=== PATIENT | male | born 1975 | race Caucasian/White ===

== ENCOUNTER → 2018-05-24 10:19 | Outpatient (CLI) | payer BC, SELFPAY ==
[2018-05-24 11:17] LABS: Glucose,Fasting 101 mg/dL (60-105)
[2018-05-24 11:36] LABS: Hemoglobin A1C 5.6 % (0.0-7.0)
== END ==
PROVIDERS: Visit Provider Physician Assistant
DX: R73.09 Other abnormal glucose (principal)
CPT/HCPCS: 36415; 82947; 83036

== ENCOUNTER 2023-12-25 12:33 | Emergency (ER) | payer BC, SELFPAY ==
--- NOTE | 2023-12-25 12:49 | ED_ITS ---
Discharge Plan Disposition Patient Disposition: Home, Self-Care Condition: Good Prescriptions Prescriptions: New cyclobenzaprine 10 mg Tablet 10 mg PO BID PRN (Reason: Muscle Spasm) Qty: 20 0RF methylprednisolone 4 mg Tablets,Dose Pack 4 mg PO DIRECTED 6 Days Qty: 21 0RF Rx Instructions: Take 1 pack as directed for 6 days No Action loratadine [Claritin] 10 mg Tablet 10 mg PO DAILY Referrals Follow up/Referrals: Blayne Brito MD [Primary Care Provider] - See instructions Activity Restrictions/Add. Instructions Additional Instructions/Restrictions: Go home and rest. It would be best if you rested tomorrow too. No heavy lifting. No twisting. Take the oral medications as directed. The muscle relaxer (cyclobenzaprine--Flexeril) will make you drowsy, so don't drive or operate heavy machinery after taking it. Don't start the oral steroids (medrol dose pack) until tomorrow, since you had the shots in here today. Follow up with your regular doctor. GO TO THE ER FOR ANY WORSENING SYMPTOMS OR CONCERN, ESPECIALLY BOWEL OR BLADDER ISSUES, SADDLE AREA NUMBNESS, FEVER, ETC Clinical Impressions Clinical Impression: Low back pain Instructions Patient Instructions: DI for Low Back Pain, Dexamethasone Injection, Ketorolac Injection, Cyclobenzaprine Discharge ED Provider: Micky Temple [facility] General Stated complaint: back pain Time Seen by Provider: 12/25/23 12:49 History of Present Illness Provider Complaint: He states that he bent over 2 days ago to work on the toilet at home. When he stood back up he began having low back pain. He denies that the pain radiates anywhere. He denies any bowel or bladder issues. Related Data Home Medications Medication Instructions Recorded Confirmed loratadine 10 mg tablet (Claritin) 10 mg PO DAILY 12/25/23 12/25/23 Previous Rx's Medication Instructions Recorded cyclobenzaprine 10 mg tablet 10 mg PO BID PRN Muscle Spasm #20 12/25/23 tabs methylprednisolone 4 mg tablets in 4 mg PO DIRECTED 6 days #21 tabs 12/25/23 a dose pack Allergies Allergy/AdvReac Type Severity Reaction Status Date / Time No Known Allergies Allergy Verified 12/25/23 13:33 [facility] Disclaimer: The information contained in this section may have been updated after the pat ient was seen, as this information can be updated by other users. Surgical History (Updated 12/25/23 @ 13:34 by Nica Rosa RN) History of tonsillectomy Social History Smoking Status: Never smoker alcohol intake: never current occupational status: employed Travel in the last 8 weeks: None ROS Obtained: Yes All systems reviewed & no additional complaints except as documented Constitutional Constitutional: Denies chills, Denies fever(s) and Denies weakness Eyes Eyes: Denies eye discharge ENT Ears, Nose, Mouth, and Throat: Denies dizziness, Denies otalgia, Denies neck pain and Denies sore throat Cardiovascular Cardiovascular: Denies chest pain Respiratory Respiratory: Denies shortness of breath, Denies chest congestion, Denies cough, Denies stridor and Denies wheezing Gastrointestinal Gastrointestingal: Denies abdominal pain, constipation, cramping, diarrhea, nausea or vomiting Genitourinary Male Genitourinary: Denies difficulty urinating, Denies flank pain, Denies hematuria, Denies urinary frequency, Denies urinary hesitancy and Denies urinary incontinence Musculoskeletal Musculoskeletal: Reports as per HPI, Denies abnormal gait, Reports back pain, Denies neck pain and Denies tingling Integumentary/Breasts Skin/Breast: Denies rash Neurologic Neurologic: Denies abnormal gait, Denies dizziness, Denies paresthesias, Denies tingling and Denies weakness Allergic/Immunologic Allergic/Immunologic: Denies wheezing Physical Exam General General appearance: alert and in no apparent distress Head Head exam: atraumatic, normocephalic and normal inspection Eye Eye exam: Present normal appearance, PERRL and EOMI ENT ENT exam: Present normal exam, normal oropharynx, mucous membranes moist, TM's normal bilaterally and normal external ear exam Neck Neck exam: Present normal inspection, full ROM and trachea midline; Absent meningismus or lymphadenopathy Chest Chest inspection: Present normal inspection and symmetric chest wall rise; Absent tenderness Respiratory Respiratory exam: Present normal lung sounds bilaterally; Absent respiratory distress Cardiovascular Cardiovascular exam: Present regular rate and normal rhythm; Absent JVD Abdominal Exam Abdominal exam: Present soft and normal bowel sounds; Absent distention, tenderness or guarding Extremities Exam Extremities exam: Present normal inspection, full ROM and normal capillary refill; Absent calf tenderness Back Exam Back exam: Present normal inspection; Absent tenderness, CVA tenderness (R), CVA tenderness (L), muscle spasm, paraspinal tenderness, vertebral tenderness, rashes, sciatic notch tenderness (R), sciatic notch tenderness (L), straight leg raise (R) or straight leg raise (L) Neurological Exam Neurological exam: Present alert, oriented X3, CN II-XII intact, normal gait and reflexes normal; Absent motor sensory deficit Expanded Neurological Exam Speech: Present fluid speech Cranial nerves: Normal: EOM function (II, III, IV, ), facial sensation (V), facial palsy (VII), gag reflex (IX), spinal accessory function (XI) and tongue deviation (XII) Cerebellar function: normal gait Motor strength - LUE: 5/5 Motor strength - RUE: 5/5 Motor strength - LLE: 5/5 Motor strength - RLE: 5/5 Upper motor neuron exam: Normal: harriet neglect and sensory extinction Sensory exam upper extremity: Normal: light touch and 2 point discrimination Sensory exam lower extremity: Normal: light touch and 2 point discrimination DTR: 2+: biceps (L), biceps (R), patellar (L), patellar (R), Achilles tendon (L) and Achilles tendon (R) Spinal cord function: Present saddle anesthesia Psychiatric Psychiatric exam: Present normal affect and normal mood Skin Skin exam: Present warm, dry, intact and normal color Lymphatic Lymphatic Findings: no adenopathy Medical Decision Making Medical Records Medical records reviewed: No I reviewed the patient's medical records. Gabe Inquiry Pt receiving controlled substance: No
[2023-12-25 13:15] VITALS: BP 175/103; PULSE 85; RESP 21; TEMP 36.8; O2SAT 97; BMI 26.1
[2023-12-25] MEDS: KETOROLAC 60MG/2ML VIAL 60 MG IM (13:52)
[2023-12-25] MEDS: DEXAMETHASONE 4MG/ML 1ML VIAL 8 MG IM (13:52)
[2023-12-25 13:53] VITALS: BP 175/103; PULSE 85; RESP 21; TEMP 36.8; O2SAT 97
== END 2023-12-25 14:07 | disposition home or self-care (01) ==
PROVIDERS: Emergency Provider Nurse Practitioner Family; PCP Family Medicine
DX: M54.50 Low back pain, unspecified (principal)
CPT/HCPCS: 96372; 99204; 99212; G0463

== ENCOUNTER 2025-02-18 03:20 | Emergency (ER) | payer BC, SELFPAY ==
--- NOTE | 2025-02-18 03:22 | HMH.EDGENADL ---
Discharge Plan Disposition Patient Disposition: Home, Self-Care Condition: Good Prescriptions Prescriptions: New tamsulosin 0.4 mg capsule 0.4 mg PO HS Qty: 14 0RF ondansetron 4 mg tablet,disintegrating 4 mg PO Q6H PRN (Reason: nausea and vomiting) Qty: 10 0RF oxycodone 5 mg tablet 5 mg PO Q6H PRN (Reason: pain (scale score 7-10)) Qty: 7 0RF No Action loratadine [Claritin] 10 mg Tablet 10 mg PO DAILY cyclobenzaprine 10 mg Tablet 10 mg PO BID PRN (Reason: Muscle Spasm) Qty: 20 0RF methylprednisolone 4 mg Tablets,Dose Pack 4 mg PO DIRECTED 6 Days Qty: 21 0RF Rx Instructions: Take 1 pack as directed for 6 days Referrals Follow up/Referrals: Nasim Mendosa MD [Referring] - See instructions (3mm right ureteral lithiasis, single kidney) Provider,Referral, [Primary Care Provider] - See instructions Activity Restrictions/Add. Instructions Additional Instructions/Restrictions: You were evaluated in the ER and are appropriate for discharge at this time. Take Tylenol and ibuprofen if needed for pain, do not exceed the recommended dose on the bottle. Drink water and eat a small snack each time you take these medications to avoid side effects. If these medications do not control your pain, then take the oxycodone if needed for severe, breakthrough pain. Only take this medication if necessary as it has potential for addiction as well as side effects including sleepiness, clouding your judgment, constipation, and more. Do not drive or operate machinery after taking this medication. Take the prescribed ondansetron if needed for nausea. Take the prescribed tamsulosin nightly as directed. Drink plenty of water. Monitor your urination closely, if you have a decrease in urination or are unable to pass urine, immediately return to the ER. Please strain your urine with the provided strainer. Call Dr. Mendosa's office for outpatient follow-up. Return to the ER with any new, worsening, or otherwise concerning symptoms. 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 Patient reports approximately 2-1/2 hours prior to arrival he was woken up by sudden onset right kidney pain. He states the pain has been as high as a 10 out of 10, currently a 7-8 out of 10. He states the pain has moved down some and he is now feeling bladder discomfort/spasm. He describes it as a cramp feeling like he needs to urinate. He denies any painful urination or blood in the urine. He states when the pain is really bad he has nausea but has not had emesis. He states he also got sweaty with the pain at 1 point but it is slightly improved. Patient reports no history of kidney stones. No other complaints or concerns. Related Data Home Medications ?Medication ?Instructions ?Recorded ?Confirmed loratadine 10 mg tablet (Claritin) 10 mg PO DAILY 12/25/23 12/25/23 Previous Rx's ?Medication ?Instructions ?Recorded cyclobenzaprine 10 mg tablet 10 mg PO BID PRN Muscle Spasm #20 12/25/23 tabs methylprednisolone 4 mg tablets in 4 mg PO DIRECTED 6 days #21 tabs 12/25/23 a dose pack ondansetron 4 mg disintegrating 4 mg PO Q6H PRN nausea and 02/18/25 tablet vomiting #10 tabs oxycodone 5 mg tablet 5 mg PO Q6H PRN pain (scale score 02/18/25 7-10) #7 tabs tamsulosin 0.4 mg capsule 0.4 mg PO HS #14 caps 02/18/25 Allergies Allergy/AdvReac Type Severity Reaction Status Date / Time No Known Allergies Allergy Verified 12/25/23 13:33 [facility] Disclaimer: The information contained in this section may have been updated after the patient was seen, as this information can be updated by other users. Surgical History (Updated 12/25/23 @ 13:34 by Nica Rosa RN) History of tonsillectomy Social History (Updated 12/25/23 @ 14:10 by Micky Temple APRN) Smoking Status: Never smoker alcohol intake: never current occupational status: employed Travel in the last 8 weeks: None Have you lived/traveled outside [place] in past 30 days?: No Contact w/someone who lives/traveled outside US past 30 days?: No Exposure to someone with infectious disease in past 14 days?: No Do you have a fever (greater than 100.4 F or 38 C)?: No Have you tested positive for COVID-19: No Exposed to someone with COVID-19 in past 14 days?: No Do you have a sore throat?: No Do you have a cough?: No Do you have any weakness?: No Do you have any diarrhea?: No Are you experiencing any unusual bleeding?: No Do you have any muscle aches/pain?: No Do you have any abdominal pain?: Yes Are you experiencing loss of taste or smell?: No ROS Obtained: Yes Systems reviewed as appropriate & no additional complaints except as documented Per HPI Physical Exam General General appearance: alert and in no apparent distress Head Head exam: atraumatic and normocephalic Eye Eye exam: Present PERRL and EOMI ENT ENT exam: Present mucous membranes moist Neck Neck exam: Present normal inspection and full ROM Chest Chest inspection: Present symmetric chest wall rise Respiratory Respiratory exam: Present normal lung sounds bilaterally; Absent respiratory distress, wheezes or stridor Cardiovascular Cardiovascular exam: Present regular rate and normal rhythm Abdominal Exam Abdominal exam: Present soft and tenderness (Mild suprapubic); Absent distention Extremities Exam Extremities exam: Present full ROM Back Exam Back exam: Present CVA tenderness (R) (Moderate low right CVA tenderness); Absent CVA tenderness (L) Neurological Exam Neurological exam: Present alert and oriented X3; Absent motor sensory deficit Psychiatric Psychiatric exam: Present normal affect and normal mood Skin Skin exam: Present warm and dry Medical Decision Making Medical Records Medical records reviewed: Yes I reviewed the patient's medical records. Screening: Per USPSTF and CDC recommendations, given the prevalence of disease in our region, it is our hospital?s policy to screen for HIV and viral Hepatitis for all patients aged 18 and over and those with ongoing risk factors. MR Comment: Patient evaluated in [facility] in December 2023 for low back pain. Prescribed cyclobenzaprine and methylprednisolone. Gabe Inquiry Pt receiving controlled substance: No Vital Signs: 02/18/25 03:35 02/18/25 03:54 02/18/25 04:30 Temperature 98.7 F Temperature Source Oral Pulse Rate 69 72 Pulse Rate [Right] 69 Respiratory Rate 17 Blood Pressure 143/102 H 116/85 Blood Pressure [Right Arm] 143/102 H Blood Pressure Mean [Right Arm] 115 Blood Pressure Source Blood Pressure Position Blood Pressure Position [Right Arm] Supine 02 Sat by Pulse Oximetry 99 98 97 Oxygen Delivery Method Room Air 02/18/25 05:00 02/18/25 06:01 Temperature 97.9 F Temperature Source Oral Pulse Rate 69 72 Pulse Rate [Right] Respiratory Rate 16 Blood Pressure 127/80 128/77 Blood Pressure [Right Arm] Blood Pressure Mean [Right Arm] Blood Pressure Source Automatic Cuff Blood Pressure Position Supine Blood Pressure Position [Right Arm] 02 Sat by Pulse Oximetry 96 Oxygen Delivery Method Room Air Lab Data Lab Results 02/18/25 03:30: WBC 11.8 H, RBC 5.02, Hgb 15.1, Hct 44.8, MCV 89.2, MCH 30.1, MCHC 33.7, RDW 12.7, Plt Count 339, MPV 9.4, Neut % (Auto) 61.7, Lymph % (Auto) 27.9, [place] % (Auto) 7.5, Eos % (Auto) 1.9, Baso % (Auto) 0.6, Neut # (Auto) 7.3, Lymph # (Auto) 3.3, [place] # (Auto) 0.9, Eos # (Auto) 0.2, Baso # (Auto) 0.1, PT 10.9, INR 0.97, Sodium 139, Potassium 4.0, Chloride 106, Carbon Dioxide 24, Anion Gap 13.0, BUN 16, Creatinine 1.20, Estimated GFR 64, Est GFR ( Amer) 78, Glucose 157 H, Calcium 9.0, Total Bilirubin 0.6, AST 29, ALT 25, Alkaline Phosphatase 87, Total Protein 7.5, Albumin 4.1, Globulin 3.4 H, Albumin/Globulin Ratio 1.2, HCV Ab CARLOS A w/Rflx PCR Qn Negative, HIV Ag/Ab Combo Qual Negative 02/18/25 04:45: Urine Color Yellow, Urine Appearance Clear, Urine pH 5.5, Ur Specific [place] 1.015, Urine Protein Trace, Urine Glucose (UA) Negative, Urine Ketones Negative, Urine Blood 3+ A, Urine Nitrate Negative, Urine Bilirubin Negative, Urine Urobilinogen 0.2, Ur Leukocyte Esterase Negative, Urine RBC 50-100, Urine WBC 3-5, Ur Squamous Epith Cells 3-5, Urine Bacteria 1+ 02/18/25 03:30 02/18/25 03:30 Orders (Tests/Meds): ED MEDICATIONS Discontinued Medications Generic Name Dose Route Start Last Admin Trade Name Freq PRN Reason Stop Dose Admin Hydromorphone HCl 0.5 mg 02/18/25 03:30 Hydromorphone 2mg/Ml Syringe IV 03/20/25 03:29 Q2HP PRN Severe Pain (7-10) Lactated Ringer's 1,000 mls @ 999 mls/hr 02/18/25 03:28 02/18/25 03:36 Lactated Ringer's 1000 Ml Bag IV 02/18/25 04:28 999 mls/hr .Q1H1M ONE Administration Iopamidol 75 ml 02/18/25 04:09 02/18/25 04:10 Iopamidol-370 (76%);100ml Bottle IV 02/18/25 04:10 75 ml ONCE ONE Administration Ketorolac Tromethamine 30 mg 02/18/25 03:28 02/18/25 03:36 Ketorolac 30mg/Ml Vial IV 02/18/25 03:29 30 mg ONCE ONE Administration Ondansetron HCl 4 mg 02/18/25 03:28 02/18/25 03:37 Ondansetron 4mg/2ml Vial IV 02/18/25 03:29 4 mg ONCE ONE Administration Sodium Chloride 10 ml 02/18/25 04:09 02/18/25 04:10 Sodium Chloride 0.9% 10ml Syr (Rad Only) IV 03/20/25 04:08 10 ml NEEDED PRN Administration Maintain IV Site Tamsulosin HCl 0.4 mg 02/18/25 05:19 02/18/25 05:47 Tamsulosin 0.4mg Capsule PO 02/18/25 05:20 0.4 mg ONCE ONE Administration ORDERS Category Date Time Status CT abdomen pelvis w con Stat Cat Scan 02/18/25 03:28 Completed CBC w/Auto Diff [Complete Blood Count Auto Diff] Stat Lab 02/18/25 03:30 Completed CMP [Comprehensive Metabolic Panel] Stat Lab 02/18/25 03:30 Completed HIV Combo Stat Lab 02/18/25 03:30 Completed Hepatitis C Ab Qual. W/ RFX Stat Lab 02/18/25 03:30 Completed PT INR [Prothrombin Time INR] Stat Lab 02/18/25 03:30 Completed Urinalysis and Microscopic Stat Lab 02/18/25 04:45 Completed Medical Decision Narrative: In summary, this 49-year-old male with a history of seasonal allergies as well as left nephrectomy organ donation presents to the emergency department today with right flank pain radiating to the bladder. On initial evaluation patient is hemodynamically stable, afebrile, physical exam notable for mild suprapubic tenderness to palpation as well as low right CVA tenderness. Differential diagnosis includes but is not limited to ureterolithiasis, nephrolithiasis, hydronephrosis, kidney dysfunction, UTI, pyelonephritis, hematuria, among others. Based on these concerns, I ordered serum labs, urine studies, CT imaging. Patient received IV fluids, Zofran, Toradol initially for management of symptoms. Labs personally reviewed demonstrate mild leukocytosis with WBC 11.8, CBC otherwise normal, PT/INR normal, CMP nonactionable, no evidence of kidney dysfunction. Creatinine 1.2. UA with blood but only few WBC and bacteria, the sample was contaminated with squamous cells so I do not believe this represents infection. CT abdomen pelvis personally interpreted demonstrates small mid?distal right ureteral stone without significant hydronephrosis. See radiology read for final interpretation. With the identification of right sided stone, patient is receiving tamsulosin to help with passage. He states he feels significantly better after having received the initial interventions. Because patient has a stone on the side of his only kidney, this makes it more important for the patient to have close follow-up and urologic care despite there not being evidence of obstructive uropathy at this time. Initially reached out to [facility], awaiting a callback. Due to delays in communication from them, also reach out to [facility]. Awaiting a callback from each of these hospitals at this time. I received a call back from Dr. Mendosa with [facility]. We discussed this case including the fact that the patient does not have obstructive uropathy at this time. He understands the concern of the patient having a single kidney but without obstructive uropathy does not recommend transfer or intervention and does recommend outpatient management. He recommended tamsulosin as well as a urine strainer for the patient. He also recommended that the patient closely monitor his pain and urine output and if his pain is persistent or his urine output decreases that he needs to immediately return to the ER. I appreciate his recommendations I discussed these recommendations with the patient and he is agreeable to plan for discharge. I prescribed tamsulosin as well as ondansetron and a short course of oxycodone if needed for severe breakthrough pain. Patient was provided a urine strainer. He was given instructions on continued symptomatic monitoring and management, follow-up instructions including referral to urology for outpatient reevaluation, as well as strict return precautions for the ER. And with bedside indicated understanding and the patient was discharged in stable condition. Critical Care Critical Care Time Critical Care Time: No
--- NOTE | 2025-02-18 03:28 | CT_ITS ---
PROCEDURE INFORMATION: Exam: CT Abdomen And Pelvis With Contrast Exam date and time: 02/18/2025 4:01 AM Age: 49 years old Clinical indication: Abdominal pain; Additional info: R flank pain radiating to bladder TECHNIQUE: Imaging protocol: Computed tomography of the abdomen and pelvis with contrast. Radiation optimization: All CT scans at this facility use at least one of these dose optimization techniques: automated exposure control; mA and/or kV adjustment per patient size (includes targeted exams where dose is matched to clinical indication); or iterative reconstruction. Contrast material: ISOVUE; Contrast volume: 75 ml; Contrast route: IV; COMPARISON: No relevant prior studies available. FINDINGS: Esophagus: Mild distal esophageal wall thickening. Consider esophagitis. Liver: 2.1 cm left hepatic lobe cyst. Gallbladder and biliary ducts: No acute findings, calcified stones or ductal dilation. Pancreas: No acute findings, focal abnormality or ductal dilation. Spleen: No splenomegaly or focal abnormality. Adrenal glands: No acute findings or mass. Kidneys and ureters: Status post left nephrectomy. There is a 3 mm calculus in the mid right ureter without significant obstructive uropathy. Small nonobstructing intrarenal calculus on the right as well. Subtle right perinephric stranding. Stomach and bowel: No obstruction. No mucosal thickening. Appendix: No evidence of appendicitis. Intraperitoneal space: No free air. No significant fluid collection. Vasculature: No abdominal aortic aneurysm. Lymph nodes: No pathologically enlarged lymph nodes. Urinary bladder: Unremarkable as visualized. Reproductive: Unremarkable as visualized. Bones/joints: No acute fracture. Soft tissues: No acute findings. IMPRESSION: 1. 3 mm calculus in the mid right ureter without significant obstructive uropathy. Subtle right perinephric stranding. 2. Status post left nephrectomy. 3. Distal esophageal wall thickening. Consider esophagitis.
[2025-02-18 03:35] VITALS: BP 143/102; PULSE 69; O2SAT 99
[2025-02-18] MEDS: LACTATED RINGERS 1000ML 1,000 ML 999 ML IV (03:36)
[2025-02-18] MEDS: KETOROLAC 30MG/ML VIAL 30 MG IV (03:36)
[2025-02-18] MEDS: ONDANSETRON 4MG/2ML VIAL 4 MG IV (03:37)
[2025-02-18 03:46] LABS: Albumin Level 4.1 g/dl (3.5-5.0); Basophils # 0.1 K/mm3 (0-0.2); Basophils % 0.6 % (0.1-2.0); Chloride 106 mmol/L (98-107); Eosinophils # 0.2 K/mm3 (0.0-0.4); Eosinophils % 1.9 % (0.1-12.0); Hematocrit 44.8 % (42.0-52.0); Hemoglobin 15.1 g/dL (14.1-18.0); Lymphocytes # 3.3 K/mm3 (0.7-4.5); Lymphocytes % 27.9 % (10-50); Mean Corpuscular HGB Conc 33.7 g/dL (31.8-35.4); Mean Corpuscular Hemoglobin 30.1 pg (27.0-31.2); Mean Corpuscular Volume 89.2 fl (80-94); Mean Platelet Volume 9.4 fl (7.4-10.4); Monocytes # 0.9 K/mm3 (0.1-1.0); Monocytes % 7.5 % (1.7-9.3); Neutrophils # 7.3 K/mm3 (1.8-7.8); Neutrophils % 61.7 % (37.0-80.0); Nucleated Red Blood Cells # 0 10^3/uL; Nucleated Red Blood Cells % 0 %; Platelet Count 339 K/mm3 (142-424); Red Blood Count 5.02 M/mm3 (4.60-6.20); Red Cell Distribution Width 12.7 % (11.5-17.5); Red Cell Distribution Width-SD 41.7 fL; Sodium 139 mmol/L (136-145); White Blood Count 11.8 K/mm3 (4.8-10.8)
[2025-02-18 03:49] LABS: Alanine Aminotransferase 25 U/L (12-78); Albumin/Globulin Ratio 1.2 (1.1-1.8); Alkaline Phosphatase 87 U/L (38-126); Aspartate Amino Transferase 29 U/L (17-59); Bilirubin,Total 0.6 mg/dl (0.2-1.3); Blood Urea Nitrogen 16 mg/dl (9-20); Carbon Dioxide 24 mmol/L (22.0-30.0); Estimated Glomerular Filt Rate 64 ml/min (>60); GFR (African American) 78 ML/MIN (>60); Globulin 3.4 g/dL (1.3-3.2); Glucose 157 mg/dl (74-100); Total Protein,Serum 7.5 g/dl (6.3-8.2)
[2025-02-18 03:50] LABS: INR 0.97 (0.9-1.1); Prothrombin Time 10.9 seconds (10.1-12.5)
[2025-02-18 03:54] VITALS: BP 143/102; PULSE 69; RESP 17; TEMP 37.1; O2SAT 98; BMI 26.2
[2025-02-18] MEDS: SODIUM CHLORIDE 0.9% 10ML SYR (RAD ONLY) 10 ML IV (04:10)
[2025-02-18] MEDS: IOPAMIDOL-370 (76%);100ML BOTTLE 75 ML IV (04:10)
[2025-02-18 04:30] VITALS: BP 116/85; PULSE 72; O2SAT 97
[2025-02-18 04:58] LABS: Microscopic, Urine URINE MICROSCOPIC (MICROSCOPIC)
[2025-02-18 05:00] VITALS: BP 127/80; PULSE 69; O2SAT 96
[2025-02-18 05:00] LABS: Appearance,Urine CLEAR (Clear); Bilirubin,Urine Negative (Negative); Blood, Urine 3+ (Negative); Color,Urine YELLOW (Yellow); Glucose,Urine (UA) Negative (Negative); Ketones,Urine Negative (Negative); Leukocyte Esterase,Urine Negative (Negative); Nitrate,Urine Negative (Negative); PH,Urine 5.5 (5.0-8.5); Protein,Urine TRACE (Negative); Specific Gravity, Urine 1.015 (1.005-1.030); Urobilinogen,Urine 0.2 EU/dl (0.2)
[2025-02-18 05:08] LABS: Bacteria,Urine 1+ /lpf; RBC,Urine 50-100 #/hpf (0-3)
[2025-02-18 05:13] LABS: HIV Combo NEGATIVE (Negative)
[2025-02-18 05:21] LABS: Hepatitis C Ab Qual. W/ RFX NEGATIVE (Negative)
--- NOTE | 2025-02-18 05:30 | PC.NURSE ---
MIKE berry called earlier for a transfer to [facility] urology, I just called asking if [facility] could also reach out to [facility] as well
[2025-02-18] MEDS: TAMSULOSIN 0.4MG CAPSULE 0.4 MG PO (05:47)
[2025-02-18 06:01] VITALS: BP 128/77; PULSE 72; RESP 16; TEMP 36.6; O2SAT 96
== END 2025-02-18 06:03 | disposition home or self-care (01) ==
PROVIDERS: Emergency Provider Emergency Medicine
DX: R10.31 Right lower quadrant pain (principal); M54.59 Other low back pain; N20.1 Calculus of ureter; R11.0 Nausea; Z11.59 Encounter for screening for other viral diseases; Z11.4 Encounter for screening for human immunodeficiency virus [HIV]
CPT/HCPCS: 74177; 80053; 81001; 85025; 85610; 86803; 87389; 96361; 96374; 96375; 99285; J1885; J2405; J7120; Q9967

== ENCOUNTER 2025-05-21 11:09 | Outpatient (CLI) | payer BC, SELFPAY ==
--- OUTSIDE RECORDS SUMMARY | 2025-05-21 11:12 | XMS_ITS ---
Author Organization [facility] Address [address] [place] [address] Care Team Providers Care Tile Grinder Name Role Phone Pcp, No Primary Care Provider [phone] Transplant Episode Kidney Donor [facility] ([place], [place]) - [facility] Organ Donated: Left Kidney Recovered on 04/15/2013 Marked as Active Follow-up on 04/15/2013 Kidney CoordinatorRufina Mayen RN Phone: N/A Fax: N/A Email: N/A Care Team Name Role Phone Fax Email Rufina Mayen RN Kidney Coordinator N/A N/A N/A Kar Leonardo MD Txp Iv Technician [phone] N/A Events Post-Donation Pre-Donation Admitted: 04/15/2013 Referred: 06/06/2012 Recovered: 04/15/2013 Evaluation began: 11/13/2012 Discharged: 04/18/2013 Committee: 12/17/2012
--- OUTSIDE RECORDS SUMMARY | 2025-05-21 11:12 | XMS_ITS | Clinical Summary ---
Author Organization [facility] Address [address] [place] [address] Care Team Providers Care Electric Crane Operator Name Role Phone Pcp, No Primary Care Provider [phone] Source Comments This information has been disclosed to you from confidential records protectedfrom disclosure by state law. You shall make no further disclosure of thisinformation without the specific, written, and informed release of theindividual to whom it pertains, or as otherwise permitted by law. A generalauthorization for the release of medical or other information is not sufficientfor the purposes of therelease of HIV test results or diagnoses. [id number] Allergies No known active allergies Medications acetaminophen (TYLENOL) 325 MG tablet Take 650 mg by mouth every 6 hours as needed. Active Active Problems Problem Noted Date Diagnosed Date Kidney donor 04/02/2013 Family History Medical History Relation Comments Diabetes Father Hypertension Mother Diabetes Paternal Grandfather Diabetes Paternal Grandmother Relation Status Comments Daughter 1 Alive Daughter 2 Alive Father Alive Mother Alive Paternal Grandfather Paternal Grandmother Sister Alive A&W Social History Tobacco Use Types Packs/Day Years Used Date Smoking Tobacco: Never Smokeless Tobacco: Never Tobacco Cessation:Counseling Given: Yes Alcohol Use Standard Drinks/Week Comments No 0 (1 standard drink = 0.6 oz pur e alcohol) Sex and Gender Information Value Date Recorded Sex Assigned at Not on file Legal Sex Male 11:55 PM EST Gender Identity Not on file Sexual Orientation Not on file Last Filed Vital Signs Vital Sign Reading Time Taken Comments Blood Pressure 142/90 05/21/2015 9:12 AM EDT Pulse 75 05/21/2015 9:12 AM EDT Temperature 36.5 C (97.7 F) 05/21/2015 7:00 AM EDT Respiratory Rate 20 04/18/2013 4:42 PM EDT Oxygen Saturation 97% 05/21/2015 7:00 AM EDT Inhaled Oxygen Concentration 97% 05/21/2015 7 :00 AM EDT Weight 90.3 kg (199 lb) 05/21/2015 7:00 AM EDT Height 191.8 cm (6' 3.5 ) 05/21/2015 7:00 AM EDT Body Mass Index 24.54 05/21/2015 7:00 AM EDT Plan of Treatment Not on file Insurance Advance Directives For more information, please contact: [phone] * Full Code (Latest Code Status on File) Date Activated Date Inactivated Comments 04/15/2013 4:16 PM 04/18/2013 8:51 PM Care Teams Electric Crane Operator Relationship Specialty Start Date End Date Pcp, No No Address PCP - General Pediatrics 05/21/15
--- OUTSIDE RECORDS SUMMARY | 2025-05-21 11:12 | XMS_ITS | Clinical Summary ---
Author Organization [facility] Address [address] [place] [address] Phone [email or web address] Care Team Providers Care Graphic Production Artist Name Role Phone Blayne Brito MD Primary Care Provider [phone] Allergies No known active allergies Medications loratadine (CLARITIN) 10 MG tablet Take 10 mg by mouth 1 (one) time each day. Active Active Problems No known active problems Social History Tobacco Use Types Packs/Day Years Used Date Smoking Tobacco: Never Smokeless Tobacco: Never Intimate Partner Violence Answer Date R ecorded Insults You Not on file 02/17/2021 Threatens You Not on file 02/17/2021 Screams at You Not on file 02/17/2021 Physically Hurt Not on file 02/17/2021 Intimate Partner Violence Score Not on file 02/17/2021 Depression Answer Date Recorded PHQ-9 Total Score 0 07/03/2020 Stress Answer Date Recorded Stress in your Life Not on file 09/09/2024 Dealing with Stress 3 09/09/2024 Sex and Gender Information Value Date Recorded Sex Assigned at Not on file Legal Sex Male 9:57 AM CDT Gender Identity Not on file Sexual Orientation Not on file Last Filed Vital Signs Vital Sign Reading Time Taken Comments Blood Pressure 131/85 07/03/2020 7:31 AM EDT Pulse 97 05/03/2022 8:38 PM EDT Temperature 37 C (98.6 F) 05/10/2022 12:27 PM EDT Respiratory Rate - - Oxygen Saturation 98% 05/03/2022 8:38 PM EDT Inhaled Oxygen Concentration - - Weight 95.3 kg (210 lb) 06/25/2020 7:30 AM EDT Height 190.5 cm (6' 3 ) 06/25/2020 7:30 AM EDT Body Mass Index 26.25 06/25/2020 7:30 AM EDT Plan of Treatment Health Maintenance Due Date Last Done Comments Dental Cleaning/Exam 1975 HIV Screening 1975 Hepatitis C Screening 1975 Annual Preventive Exam 1992 Hep B Infection Screening - Triple Screen 1992 Hepatitis B Immunization (1 of 3 - 19+ 3-dose series) 1993 Tetanus Diphtheria and Pertussis Immunization (1 - Tdap) 1993 Colorectal Cancer Screening 2004 Zoster Immunization (1 of 2) 2024 Covid-19 Immunization (3 - season) 2024 08/20/2021, 07/26/2021 Influenza Immunization (#1) 07/07/202502/2021, 08/23/2016 HIB Immunization Aged Out No longer e ligible based on patient's age to complete this topic HPV Immunization Aged Out No longer e ligible based on patient's age to complete this topic Hepatitis A Immunization Aged Out No longer eligible based on patient's age to complete this topic Pneumococcal: Ped (0 to 5 Yrs) and At-Risk Member (6 to 64 Yrs) Aged Out No longer eligible b ased on patient's age to complete this topic Polio Immunization Aged Out No longer eligible based on patient's age to complete this topic Insurance Care Teams Graphic Production Artist Relationship Specialty Start Date End Date Blayne Brito MD [address] [facility] [address] [place] [id number] PCP - General Assistant Boiler Operator 07/03/20
--- NOTE | 2025-05-21 11:14 | XR_ITS ---
FINAL REPORT CLINICAL HISTORY: PAIN IN RIGHT HEEL symptoms not improving COMPARISON: None FINDINGS: Three views of the right foot show no evidence of acute displaced fracture or dislocation of the visualized bony architecture. There is an old avulsion fracture of the dorsal navicular bone. There is mild calcaneal spurring. No evidence of erosion. The joint spaces appear normal. IMPRESSION: No acute bony abnormality. Reviewed, Interpreted and Dictated by Viet Westfall MD Transcribed by Jeniffer Suero Authenticated and . [facility]
== END 2025-05-21 23:59 | disposition home or self-care (01) ==
LOC: RAD 11:09
PROVIDERS: PCP Family Medicine; Visit Provider Family Medicine
DX: M79.671 Pain in right foot (principal)
CPT/HCPCS: 73630

== ENCOUNTER 2025-07-19 17:28 | Emergency (ER) | payer BC, SELFPAY ==
--- OUTSIDE RECORDS SUMMARY | 2025-05-21 06:15 | XMS_ITS ---
Author Organization [facility] Address [address] [facility] [address] [place], [place] [id number] Care Team Providers Care Public Works Technician Name Role Phone Blayne Birto Primary Care Provider Allergies No Known Allergies Results Component Value Reference Range Notes P-Comprehensive Metabolic Pa justino (CMP) Reviewed date:05/22/2025 08:59:13 AM Interpretation:Glu 100 Performing Lab: Notes/Report: Test performed by [facility] [address] [facility] , [address], [place] [address] Stephen Cerna MD, Finished Cigar Maker CLIA: [id number] Sodium 141 135-145 mmol/L Potassium 4.9 3.5-5.3 [...] 3.6 Performing Lab: Notes/Report: Test performed by [facility] [address] [place] [address] , [address], [place] [address] Stephen Cerna MD, Finished Cigar Maker CLIA: [id number] Cholesterol 204 <200 mg/dL Triglycerides 104 <150 [...] Interpretation:Normal Performing Lab: Notes/Report: Test performed by [facility] [facility] [address] , [address], [place] [address] Stephen Cerna MD, Finished Cigar Maker CLIA: [id number] PSA 0.93 <4.00 ng/mL Please note this [...] 05/21/2025 Encounters Encounter Location Date Provider Diagnosis [facility] [address] [place], [place] [id number] 05/21/2025 Blayne [place]keley Pain of right heel M79.671 ; Screening, [...] via phone to repo rt progress, Reason: Progress Notes * Brian SWANSONDOB:1975 (50 yo M)Acc No.[id number]:05/21/2025 Progress Notes Patient: Brian GE Provider: Paige Brito M.D. :1975 A ge:50 Y S ex:Male Date:05/21/2025 Address:[address] [place] [address] Subjective: * Chief Complaints: * 1 . [...] Tonsillectomy 3rd grade, Left Kidney Donation to [facility] 04/15/2013. * Hospitalization/Major Diagno stic Procedure: U [facility] due to Kidney donation- 4 nights 04/2013. * Family History: F ather: 58 yrs, diabetes, diagnosed with Diabetes, Heart Disease. M other: alive 56 yrs. P aternal Grand Father: , diabetes. P aternal Grand Mother: 75 yrs, diabetes, strokes. M aternal Grand Father: . M aternal Grand Mother: , cancer. S chelo: alive. Noe michel: alive. 1 sister(s) - healthy. 2 daughter(s) - healthy. . * Social History: C URRENT TOBACCO USE: No . C affeine: yes, frequency: daily, 1. Exercise: no. Home smoke detector use: yes. Marital Status: . Alcohol: no. 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 Past smoking status: no. Recreational drug use: [...] kidney donation - Z90.5 7 . B NC 25.0-25.9,adult - Z68.25 Plan: * Treatment: 2.?Screening, [...] colonoscopy* Dr. Engle on a Monday in [place]. 2025Yvonne Preston 05/21/2025 11:29:18 AM EDT [...] * Images: Billing Information: * Visit Code: 84926 Office Visit, New Pt., Level 4. * Procedure Codes: 1036F TOBACCO NON-USER. G8420 BMI<30 AND >=22 CALC & DOCU. 3075F SYST BP GE 130 - 139MM HG. 3079F DIAST BP 80-89 MM HG. * Electronic signature of Ysabel Brito MD on 07/19/2025 at 05:36 PM EDT Sign off status: Pending * Provider: Paige Brito M.D. Date: 0 05/21/2025 Generated for Ana mcghee/Alyson/Waldoitting on: 0 07/19/2025 05:36 PM EDT History and Physical Notes * HPI (History [...]
--- OUTSIDE RECORDS SUMMARY | 2025-05-22 04:57 | XMS_ITS ---
[facility] Organization [facility] Address [address] [facility] [address] [id number] Care Team Providers Care C.O.D. Clerk Name Role Phone Blayne Brito Primary Care Provider Reason For Referral Diagnosis 1 Pain of right heel ( M79.671) [facility]erring Provider First Name Blayne Referring Provider Last Name Alisha Referring Provider Speciality Family Pra ctice Referred Provider Jacki Melgar Referred Provider Specialty Podiatry General Notes Yvonne Preston 2024 12:33:26 PM > [facility] PodiatryKary Brynn 05/28/2025 10:13:08 AM > 06/17/2025 at 10:00am Referral Priority Routine REASON FOR VISIT Test Results* Encounters Encounter Location Date Provider [facility] [address] [id number] 05/22/2025 Blayne Brito Pain in right foot M79.671 Assessments Encounter Date Diagnosis (ICD Code) Assessment Notes Treatment Notes Treatment Clinical Notes Section Notes 05/22/2025 Pain in right foot (ICD-10 - M79.671) Plan Of Treatment Referrals Referral Date Details 05/22/2025 05/22/2025, Jacki de la torre Progress Notes * SWANSONBrian RIZVIDOB:1975 (50 yo M)Acc No.[id number]:05/22/2025 Patient: F ARMER, Brian :1975 A ge:50 Y S ex:Male Address:[address] [place] [address] Subjective: * Chief Complaints: * T est Results* * Medical History: * Surgical History: * Hospitalization/Major Diagno stic Procedure: * Medications: Objective: * Vitals: * Physical Examination: Assessment: * Assessment: 1. P ain in right foot - M79.671 (Primary) Plan: * Treatment: * Procedure Codes: * true * Date: Generated for Ana mcghee/Alyson/Yolandasmitting on: 0 07/19/2025 05:37 PM EDT Consultation Request Notes Referral Date Referring Provider Referred Provider Not es 05/22/2025 Blayne Brito Sofie
[2025-07-19] VITALS (27 sets, daily range): BP systolic 126–165; BP diastolic 84–107; PULSE 60–84; RESP 16–19; TEMP 36.6; O2SAT 94–100; BMI 26.2
--- OUTSIDE RECORDS SUMMARY | 2025-07-19 17:36 | XMS_ITS | Patient Health Record ---
Author Organization [facility] Address [address] [place], [place] [id number] Care Team Providers Care Buckle Assembler Name Role Phone Blayne Brito Primary Care Provider [phone] Allergies No Known Allergies Results Component Value Reference Range Notes X ray : Foot, right Reviewed date:05/22/2025 08:59:14 AM Interpretation:No Bony Abnormality Performing Lab: Notes/Report: No Bony Abnormality P-PSA Reviewed date:05/22/2025 08:59:14 AM Interpretation:Normal Performing Lab: Notes/Report: Test performed by [facility] [address] [place], [place] [address] [address], [place] [address] Stephen Cerna MD, Release Manager CLIA: [id number] PSA 0.93 <4.00 ng/mL Please note this is an ultrasensitive PSA assay with a lower limit of detection of 0.014 ng/mL. This test is performed by the Verna ECLIA methodology. Values obtained with different assay methods or kits cannot be directly compared. P-Lipid Panel Reviewed date:05/22/2025 08:59:13 AM Interpretation:Chol 204, Chol/HDL 5.10, Non-HDL 164, LDL 143, LDL/HDL 3.6 Performing Lab: Notes/Report: Test performed by [facility] [address] [place], [place] [address] [address], [place] [address] Stephen Cerna MD, Release Manager CLIA: [id number] Cholesterol 204 <200 mg/dL Triglycerides 104 <150 [...] Results: 143 Units: mg/dL % Change: - P-Comprehensive Metabolic Pa justino (CMP) Reviewed date:05/22/2025 08:59:13 AM Interpretation:Glu 100 Performing Lab: Notes/Report: Test performed by [facility], [facility] [address] [facility] , [facility] [address], [place] [address] Stephen Cerna MD, Release Manager CLIA: [id number] Sodium 141 135-145 mmol/L Potassium 4.9 3.5-5.3 [...] 0.3 <0.2-1.2 mg/dL A/G Ratio 1.4 1.1-2.5 Reason For Referral Diagnosis 1 Pain of right heel ( M79.671) [facility] Referring Provider First Name Blayne Referring Provider Last Name Alisha Referring Provider Speciality Family Pra ctice Referred Provider Jacki Melgar Referred Provider Specialty Podiatry General Notes Yvonne Preston 2024 12:33:26 PM > faxed to [facility] Podiatry, Yvonne Preston 05/28/2025 10:13:08 AM > 06/17/2025 at 10:00am Referral Priority Routine Medications Medication SIG (Take, Route, Fr equency, Duration) Notes Start Date End Date Status Claritin 10 MG 1 tablet Orally Once a day Active Meloxicam 15 MG 1 tablet Orally Once a day; Duration: 30 days 05/21/2025 Active Problems Problem Type SNOMED Code ICD Code Onset Dates Problem Status W/U Status Risk Notes Problem Absent kidney (901000929) 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 confirmed Vital Signs Heart Rate 97 /min 05/21/2025 Blood pressure diastolic 80 mm Hg 05/21/2025 Height 76 in 05/21/2025 Blood pressure systolic 130 mm Hg 05/21/2025 Weight 207.4 lbs 05/21/2025 BMI 25.24 kg/m2 05/21/2025 Encounters Encounter Location Date Provider Diagnosis [facility] [address] [place] [address], [place] [id number] 05/21/2025 Blayne Brito Pain of right heel M79.671 ; Screening, lipid Z13.220 ; Well adult exam Z00.00 ; Prostate cancer screening Z12.5 ; Colon cancer screening Z12.11 ; H/O kidney donation Z90.5 and BMI 25.0-25.9,adult Z68.25 [facility] [address] [place] [id number] 05/22/2025 Blayne Timberon Pain in right foot M79.671 Assessments Encounter Date Diagnosis (ICD Code) Assessment Notes Treatment Notes Treatment Clinical Notes Section Notes 05/21/2025 Screening, lipid (ICD-10 - Z13.220) 05/21/2025 Pain of right heel (ICD-10 - M79.671) 05/22/2025 Pain in right foot (ICD-10 - M79.671) 05/21/2025 Well adult exam (ICD-10 - Z00.00) 05/21/2025 Prostate cancer screening (ICD-10 - Z12.5) 05/21/2025 Colon cancer screening (ICD-10 - Z12.11) 05/21/2025 H/O kidney donation (ICD-10 - Z90.5) 05/21/2025 BMI 25.0-25.9,adult (ICD-10 - Z68.25) Plan Of Treatment Pending Test Test Name Order Date colonoscopy 05/21/2025 Insurance Providers Payer Name Payer Address Payer Phone Subscriber Number Group Number Insured Name Patient Relationship to Insured Coverage Start Date Coverage End Date [facility] [address] [place] [address] [id number] Brian Swanson Self - patient is the insured Medical (General) History Medical History History ICD Code Allergic Rhinitis Surgical History Surgery Date(Month/Year) broke 5th digit on left hand, surgery re pair 2003 Tonsillectomy 3rd grade Left Kidney Donation to [facility] 04/15/2013 Hospitalization History Reason Date(Month/Year) [facility] due to Kidney d onation- 4 nights 04/2013
--- OUTSIDE RECORDS SUMMARY | 2025-07-19 17:36 | XMS_ITS ---
Author Organization [facility] Address [address] [place] [address] Care Team Providers Care Grid Inspector Name Role Phone Pcp, No Primary Care Provider [phone] Transplant Episode Kidney Donor [facility] ([place], [place]) - [facility] Donated: Left Kidney Recovered on 04/15/2013 Marked as Active Follow-up on 04/15/2013 Kidney CoordinatorRufina Mayen RN Phone: N/A Fax: N/A Email: N/A Care Team Name Role Phone Fax Email Rufina Mayen RN Kidney Coordinator N/A N/A N/A Kar Leonardo MD [employer] [phone] N/A Events Post-Donation Pre-Donation Admitted: 04/15/2013 Referred: 06/06/2012 Recovered: 04/15/2013 Evaluation began: 11/13/2012 Discharged: 04/18/2013 Committee: 12/17/2012
--- OUTSIDE RECORDS SUMMARY | 2025-07-19 17:36 | XMS_ITS | Clinical Summary ---
Author Organization [facility] Address [address] [place] [address] Phone [email or web address] Care Team Providers Care Cigarette Making Machine Hopper Feeder Name Role Phone Blayne Brito MD Primary Care Provider [phone] Allergies No known active allergies Medications loratadine [...] Health Maintenance Due Date Last Done Comments CT Colonography 1974 Colonoscopy 1974 Colorectal Cancer Screening Combo 1974 DNA Cologuard 1974 Dental Cleaning/Exam 1974 FIT or FOBT Test 1974 HIV Screening 1974 Hepatitis C Screening 1974 Sigmoidoscopy 1974 Annual Preventive Exam 1992 Hep B Infection Screening - Triple Screen 1992 Hepatitis B Immunization (1 of 3 - 19+ 3-dose series) 1993 Tetanus Diphtheria and Pertussis Immunization (1 - Tdap) 1993 Zoster Immunization (1 of 2) 2024 Covid-19 Immunization (3 - season) 2025 08/20/2021, 07/26/2021 Influenza Immunization (#1) 2025 100 02/2021, 08/23/2016 HIB Immunization Aged Out No longer e ligible based on patient's age to complete this topic HPV Immunization Aged Out No longer e ligible based on patient's age to complete this topic Hepatitis A Immunization Aged Out No longer eligible based on patient's age to complete this topic Pneumococcal: Ped (0 to 5 Yr s) and At-Risk Member (6 to 64 Yrs) Aged Out No longer eligible b ased on patient's age to complete this topic Polio Immunization Aged Out No longer eligible based on patient's age to complete this topic Insurance OPT OUT NO COPAY NB Care Teams Cigarette Making Machine Hopper Feeder Relationship Specialty Start Date End Date Blayne Brito MD [address] [facility] [address] [place] [address] PCP - General Rack Cleaner 07/03/20
--- OUTSIDE RECORDS SUMMARY | 2025-07-19 17:37 | XMS_ITS | Clinical Summary ---
Author Organization [facility] Address [address] [place] [address] Care Team Providers Care Cell Efficiency Supervisor Name Role Phone Pcp, No Primary Care [...] therelease of HIV test results or diagnoses. [id number] Allergies No known active allergies Medications [...] Advance Directives For more information, please contact: [phone] * Full Code (Latest Code Status on File) Date Activated Date Inactivated Comments 04/15/2013 4:16 PM 04/18/2013 8:51 PM Care Teams Cell Efficiency Supervisor Relationship Specialty Start Date End Date Pcp, No No Address PCP - General Pediatrics 05/21/15
--- NOTE | 2025-07-19 17:39 | ECG_ITS ---
APPROVED REPORT Exam: Resting ECG HR:78 bpm ECG Measurements Heart Rate 78 AXES MO 175 P 45 QRSd 95 QRS 67 QT 366 T 51 QTc 400 Conclusion SINUS RHYTHM POSSIBLE LEFT ATRIAL ENLARGEMENT [-0.1mV P-WAVE IN V1/V2] No STEMI Electronically signed by : DEIDRE DENG, 07/20/2025 00:55:16
[2025-07-19 17:48] LABS: POC Glucose,Bedside 153 gm/dL (70-110)
--- NOTE | 2025-07-19 17:52 | CT_ITS ---
PROCEDURE INFORMATION: Exam: CTA Head With Contrast, Arteriography Exam date and time: 07/19/2025 7:04 PM Age: 50 years old Clinical indication: Dizziness and giddiness; Additional info: Vertigo, nystagmus w/ left gaze TECHNIQUE: Imaging protocol: Computed tomographic angiography of the head with contrast. Exam focused on the arteries. 3D rendering (Not supervised by radiologist): MIP and/or 3D reconstructed images were created by the technologist. Radiation optimization: All CT scans at this facility use at least one of these dose optimization techniques: automated exposure control; mA and/or kV adjustment per patient size (includes targeted exams where dose is matched to clinical indication); or iterative reconstruction. Contrast material: ISOVUE; Contrast volume: 80 ml; Contrast route: INTRAVENOUS (IV); COMPARISON: CT HEAD/BRAIN WO CON 07/19/2025 7:02 PM FINDINGS: ANTERIOR CIRCULATION: Right internal carotid artery: Intracranial segment is patent with no significant stenosis. No aneurysm. Right middle cerebral artery: No occlusion or significant stenosis. No aneurysm. Right anterior cerebral artery: No occlusion or significant stenosis. No aneurysm. Left internal carotid artery: Intracranial segment is patent with no significant stenosis. No aneurysm. Left middle cerebral artery: No occlusion or significant stenosis. No aneurysm. Left anterior cerebral artery: No occlusion or significant stenosis. No aneurysm. POSTERIOR CIRCULATION: Right vertebral artery: No occlusion or significant stenosis. No aneurysm. Left vertebral artery: No occlusion or significant stenosis. No aneurysm. Basilar artery: No occlusion or significant stenosis. No aneurysm. Right posterior cerebral artery: No occlusion or significant stenosis. No aneurysm. Left posterior cerebral artery: No occlusion or significant stenosis. No aneurysm. Brain: No definite mass, mass effect, or midline shift. Cerebral ventricles: No ventriculomegaly. Bones/joints: Unremarkable. No acute fracture. Soft tissues: Unremarkable. IMPRESSION: No large vessel occlusion or flow-limiting stenosis. PROCEDURE INFORMATION: Exam: CTA Neck With Contrast Exam date and time: 07/19/2025 7:04 PM Age: 50 years old Clinical indication: Dizziness and giddiness; Additional info: Vertigo, nystagmus w/ left gaze TECHNIQUE: Imaging protocol: Computed tomographic angiography of the neck with contrast. Exam focused on the cervical segments of the vasculature. 3D rendering (Not supervised by radiologist): MIP and/or 3D reconstructed images were created by the technologist. Radiation optimization: All CT scans at this facility use at least one of these dose optimization techniques: automated exposure control; mA and/or kV adjustment per patient size (includes targeted exams where dose is matched to clinical indication); or iterative reconstruction. Contrast material: ISOVUE; Contrast volume: 80 ml; Contrast route: INTRAVENOUS (IV); COMPARISON: CT HEAD/BRAIN WO CON 07/19/2025 7:02 PM FINDINGS: Right common carotid artery: No stenosis. No dissection or occlusion. Right internal carotid artery: No stenosis of the extracranial segment. No dissection or occlusion. Right external carotid artery: No occlusion or stenosis of the origin. Left common carotid artery: Mild atherosclerosis of the carotid bulb without significant stenosis. No dissection or occlusion. Left internal carotid artery: No stenosis of the extracranial segment. No dissection or occlusion. Left external carotid artery: No occlusion or stenosis of the origin. Right vertebral artery: No stenosis. No dissection or occlusion. Left vertebral artery: Dominant vessel. No stenosis. No dissection or occlusion. Soft tissues: Normal. No significant soft tissue swelling. Bones/joints: No acute fracture. Lungs: 4.5 mm left upper lobe calcified granuloma. IMPRESSION: No flow-limiting stenosis or occlusion. No dissection. REFERENCES: NASCET CRITERIA. The degree of stenosis in the cervical segment of the internal carotid artery is based on NASCET criteria. Normal is no stenosis. Mild is less than 50% stenosis. Moderate is 50-69% stenosis. Severe is 70% to 99% stenosis. Total occlusion is no detectable patent lumen.
--- NOTE | 2025-07-19 17:52 | CT_ITS ---
PROCEDURE INFORMATION: Exam: CT Head Without Contrast Exam date and time: 07/19/2025 7:02 PM Age: 50 years old Clinical indication: Dizziness; Additional info: Vertigo, nystagmus w/ left gaze TECHNIQUE: Imaging protocol: Computed tomography of the head without contrast. Radiation optimization: All CT scans at this facility use at least one of these dose optimization techniques: automated exposure control; mA and/or kV adjustment per patient size (includes targeted exams where dose is matched to clinical indication); or iterative reconstruction. COMPARISON: No relevant prior studies available. FINDINGS: Brain: No acute intracranial hemorrhage, midline shift, or mass effect. Cerebral ventricles: No ventriculomegaly. Paranasal sinuses: Visualized sinuses are unremarkable. No fluid levels. Mastoid air cells: Visualized mastoid air cells are well aerated. Bones: Unremarkable. No acute fracture. Soft tissues: Unremarkable. IMPRESSION: No acute intracranial findings.
[2025-07-19] MEDS: ONDANSETRON 4MG/2ML VIAL 4 MG IV (17:59)
[2025-07-19] MEDS: diazePAM 10MG/2ML SYRINGE 5 MG IV (18:00)
[2025-07-19] MEDS: MECLIZINE 25MG TABLET 25 MG PO (18:01)
[2025-07-19 18:22] LABS: Hematocrit 46.8 % (42.0-52.0); Hemoglobin 15.1 g/dL (14.1-18.0); Immature Granulocytes % 2.8 %; Mean Corpuscular HGB Conc 32.3 g/dL (31.8-35.4); Mean Corpuscular Hemoglobin 29.3 pg (27.0-31.2); Mean Corpuscular Volume 90.9 fl (80-94); Nucleated Red Blood Cells % 0 %; Platelet Count 343 K/mm3 (142-424); Red Blood Count 5.15 M/mm3 (4.60-6.20); Red Cell Distribution Width-SD 42.8 fL; White Blood Count 16.1 K/mm3 (4.8-10.8)
--- NOTE | 2025-07-19 18:33 | ED_ITS ---
Discharge Plan Disposition Patient Disposition: Xfer Other Condition: Fair Prescriptions Prescriptions: No Action meloxicam 15 mg tablet PO ONCE Patient Comments: TAKE 1 TABLET BY MOUTH DAILY methylprednisolone 4 mg tablets,dose pack 4 mg PO PER PKG DIR Qty: 21 0RF diclofenac sodium [Voltaren Arthritis Pain] 1 % gel 4 g topical QID PRN (Reason: pain) 30 Days Qty: 100 2RF Rx Instructions: apply to heel; ankle, foot; for foot includes sole/toes/top of foot loratadine [Claritin] 10 mg Tablet 10 mg PO DAILY Referrals Follow up/Referrals: Blayne Brito MD [Primary Care Provider, Medical] - See instructions Clinical Impressions Clinical Impression: Vertigo, Nystagmus, Inability to walk Stand Alone Forms Stand Alone Forms: Transfer Record - ED Print Language Print Language: Georgian Discharge ED Provider: Thomas Vidales General Adult HPI General Chief complaint: Dizziness Stated complaint: dizzy,vomiting, fever,nausea Time Seen by Provider: 07/19/25 17:33 Mode of Arrival: Wheelchair Source of Information: Patient Description of Symptoms (Recalled from ER Triage Doc. by RN): pt presents to ED with c/o nausea, dizziness, vomitting, sweats. pt reports that he was driving home from work around 430pm when he become dizzy, hot, and sick to his stomach with vomitting. History of Present Illness HPI narrative: This is a 50-year-old male patient, with no significant past medical history or daily medications, presenting to the emergency department today for evaluation of vertigo. Patient states that he was driving prior to arrival when he developed sudden onset vertigo. He describes it as a classic spinning sensation. He tells me that this is exacerbated by moving his head. He tells me he feels that he cannot when he looks to the left look completely to the right without difficulty. He also states that he feels that he has to keep his eyes closed in order to not feel dizzy. Since the onset of his symptoms he has had significant nausea and vomiting. No headaches. Related Data Home Medications ?Medication ?Instructions ?Recorded ?Confirmed loratadine 10 mg tablet (Claritin) 10 mg PO DAILY 12/0706/17/25 meloxicam 15 mg tablet mg PO ONCE 06/17/25 06/17/25 Previous Rx's ?Medication ?Instructions ?Recorded diclofenac sodium 1 % topical gel 4 g topical QID PRN pain 30 days 06/17/25 (Voltaren Arthritis Pain) #100 grams methylprednisolone 4 mg tablets in 4 mg PO PER PKG DIR Pain, swelling 06/17/25 a dose pack #21 tabs Allergies Allergy/AdvReac Type Severity Reaction Status Date / Time No Known Allergies Allergy Verified 06/17/25 10:20 [facility] Disclaimer: The information contained in this section may have been updated after the patient was seen, as this information can be updated by other users. Surgical History History of tonsillectomy Social History Smoking Status: Never smoker alcohol intake: never current occupational status: employed Travel in the last 8 weeks?: None Have you lived/traveled outside [place] in past 30 days?: No Contact w/someone who lives/traveled outside [place] past 30 days?: No Exposure to someone with infectious disease in past 14 days?: No Do you have a fever (greater than 100.4 F or 38 C)?: Yes Have you tested positive for COVID-19?: No Exposed to someone with COVID-19 in past 14 days?: No Do you have a sore throat?: No Do you have a cough?: No Do you have any weakness?: No Do you have any diarrhea?: No Are you experiencing any unusual bleeding?: No Do you have any muscle aches/pain?: No Do you have any abdominal pain?: No Are you experiencing loss of taste or smell?: No ROS Obtained: Yes Systems reviewed as appropriate & no additional complaints except as documented Physical Exam General General appearance: other (See MDM) Respiratory Respiratory exam: Present other (See MDM) Cardiovascular Cardiovascular exam: Present other (See MDM) Neurological Exam Neurological exam: Present other (See MDM) Medical Decision Making Medical Records Medical records reviewed: Yes I reviewed the patient's medical records. Screening: Per USPSTF and CDC recommendations, given the prevalence of disease in our region, it is our hospital?s policy to screen for HIV and viral Hepatitis for all patients aged 18 and over and those with ongoing risk factors. Gabe Inquiry Pt receiving controlled substance: No Gabe was queried for this patient: No Vital Signs: 07/19/25 17:36 07/19/25 17:40 07/19/25 17:48 Temperature 97.9 F Temperature Source Oral Pulse Rate 84 76 Pulse Rate [Left Radial] 81 Respiratory Rate 19 Blood Pressure 150/95 H 140/97 H Blood Pressure [Right Arm] 150/95 H Blood Pressure Mean Blood Pressure Mean [Right Arm] 113 02 Sat by Pulse Oximetry 98 99 99 Oxygen Delivery Method Room Air Oxygen Flow Rate (LPM) 07/19/25 18:00 07/19/25 18:20 07/19/25 18:40 Temperature Temperature Source Pulse Rate 60 63 71 Pulse Rate [Left Radial] Respiratory Rate Blood Pressure 126/87 132/90 Blood Pressure [Right Arm] Blood Pressure Mean 101 Blood Pressure Mean [Right Arm] 02 Sat by Pulse Oximetry 94 L 98 99 Oxygen Delivery Method Nasal Cannula Oxygen Flow Rate (LPM) 2 07/19/25 19:20 07/19/25 19:40 07/19/25 19:45 Temperature Temperature Source Pulse Rate 61 61 69 Pulse Rate [Left Radial] Respiratory Rate Blood Pressure 148/97 H 149/90 H Blood Pressure [Right Arm] Blood Pressure Mean 114 109 Blood Pressure Mean [Right Arm] 02 Sat by Pulse Oximetry 98 100 99 Oxygen Delivery Method Oxygen Flow Rate (LPM) 07/19/25 20:00 07/19/25 20:00 07/19/25 20:15 Temperature Temperature Source Pulse Rate 62 61 Pulse Rate [Left Radial] Respiratory Rate Blood Pressure 151/93 H Blood Pressure [Right Arm] Blood Pressure Mean 114 Blood Pressure Mean [Right Arm] 02 Sat by Pulse Oximetry 100 100 Oxygen Delivery Method Oxygen Flow Rate (LPM) 07/19/25 20:20 07/19/25 20:20 07/19/25 20:40 Temperature Temperature Source Pulse Rate 73 Pulse Rate [Left Radial] Respiratory Rate Blood Pressure 142/97 H 134/84 Blood Pressure [Right Arm] Blood Pressure Mean 113 100 Blood Pressure Mean [Right Arm] 02 Sat by Pulse Oximetry 99 Oxygen Delivery Method Oxygen Flow Rate (LPM) 07/19/25 20:40 07/19/25 20:45 07/19/25 20:58 Temperature Temperature Source Pulse Rate 70 61 75 Pulse Rate [Left Radial] Respiratory Rate Blood Pressure Blood Pressure [Right Arm] Blood Pressure Mean Blood Pressure Mean [Right Arm] 02 Sat by Pulse Oximetry 100 99 100 Oxygen Delivery Method Oxygen Flow Rate (LPM) 07/19/25 21:01 07/19/25 21:06 07/19/25 21:15 Temperature Temperature Source Pulse Rate 74 65 Pulse Rate [Left Radial] Respiratory Rate Blood Pressure 165/107 H Blood Pressure [Right Arm] Blood Pressure Mean 121 Blood Pressure Mean [Right Arm] 02 Sat by Pulse Oximetry 99 98 Oxygen Delivery Method Oxygen Flow Rate (LPM) 07/19/25 21:22 07/19/25 21:22 Temperature Temperature Source Pulse Rate 71 Pulse Rate [Left Radial] Respiratory Rate Blood Pressure 141/98 H Blood Pressure [Right Arm] Blood Pressure Mean 117 Blood Pressure Mean [Right Arm] 02 Sat by Pulse Oximetry 98 Oxygen Delivery Method Oxygen Flow Rate (LPM) Lab Data Lab Results 07/19/25 17:41: POC Glucose 153 H 07/19/25 17:42: WBC 16.1 H, RBC 5.15, Hgb 15.1, Hct 46.8, MCV 90.9, MCH 29.3, MCHC 32.3, RDW 12.9, Plt Count 343, MPV 9.6, Neut % (Auto) 49.8, Lymph % (Auto) 37.1, [place] % (Auto) 8.0, Eos % (Auto) 1.7, Baso % (Auto) 0.6, Neut # (Auto) 8.0 H, Lymph # (Auto) 6.0 H, [place] # (Auto) 1.3 H, Eos # (Auto) 0.3, Baso # (Auto) 0.1, Total Counted 100, Neutrophils % (Manual) 47, Lymphocytes % (Manual) 42, Monocytes % (Manual) 8, Eosinophils % (Manual) 2, Basophils % (Manual) 1.0, Platelet Estimate Normal, RBC Morphology Normal, Sodium 142, Potassium 4.1, Chloride 107, Carbon Dioxide 22, Anion Gap 17.1 H, BUN 16, Creatinine 1.10, Estimated Creat Clear 107, Estimated GFR 71, Est GFR ( Amer) 85, Glucose 162 H, Calcium 9.4, Total Bilirubin 0.6, AST 37, ALT 20, Alkaline Phosphatase 88, Total Protein 7.8, Albumin 4.5, Globulin 3.3 H, Albumin/Globulin Ratio 1.4 07/19/25 18:32: PT 11.4, INR 1.03 07/19/25 17:42 07/19/25 17:42 Orders (Tests/Meds): ED MEDICATIONS Discontinued Medications Generic Name Dose Route Start Last Admin Trade Name Greyson PRN Reason Stop Dose Admin Diazepam 5 mg 07/19/25 17:49 07/19/25 18:00 Diazepam 10mg/2ml Syringe IV 07/19/25 17:50 5 mg ONCE ONE Administration Iopamidol 80 ml 07/19/25 19:02 07/19/25 19:03 Iopamidol-370 (76%);100ml Bottle IV 07/19/25 19:03 80 ml ONCE ONE Administration Meclizine HCl 25 mg 07/19/25 17:49 07/19/25 18:01 Meclizine 25mg Tablet PO 07/19/25 17:50 25 mg ONCE ONE Administration Ondansetron HCl 4 mg 07/19/25 17:49 07/19/25 17:59 Ondansetron 4mg/2ml Vial IV 07/19/25 17:50 4 mg ONCE ONE Administration Sodium Chloride 10 ml 07/19/25 19:02 07/19/25 19:02 Sodium Chloride 0.9% 10ml Syr (Rad Only) IV 07/19/25 19:03 10 ml ONCE ONE Administration Sodium Chloride 50 ml 07/19/25 19:02 07/19/25 19:02 0.9 % Sodium Chloride 50 Ml Vial IV 07/19/25 19:03 50 ml ONCE ONE Administration ORDERS Category Date Time Status CT angio head Stat Cat Scan 07/19/25 17:[address] angio neck Stat Cat Scan 07/19/25 17:[address] head/brain wo con Stat Cat Scan 07/19/25 17:52 Completed CBC w/Auto Diff [Complete Blood Count Auto Diff] Stat Lab 07/19/25 17:42 Completed CMP [Comprehensive Metabolic Panel] Stat Lab 07/19/25 17:42 Completed POC Glucose,Bedside Routine Lab 07/19/25 17:41 Completed PT INR [Prothrombin Time INR] Stat Lab 07/19/25 18:32 Completed ECG Data Tracing #1: I reviewed this ECG and interpreted as documented below: EKG personally interpreted by me demonstrates normal sinus rhythm with a rate of 78 bpm, normal axis, no MA prolongation, narrow QRS, no QTc prolongation. No ST elevation or depression. No overt signs of ischemia or arrhythmia Medical Decision Narrative: In summary, this is a 50-year-old male patient presenting to the emergency department today for evaluation of sudden onset vertigo that is worse with movement of the head and is associated with nausea and vomiting. Patient does not have any comorbidities that would complicate his medical management or care. Primary On physical exam patient is appropriately alert and oriented with a GCS of 15. Heart and lungs are clear to auscultation bilaterally. He has 5 out of 5 strength in his bilateral upper and lower extremities. Normal sensation bilaterally. [id number] testing is intact bilaterally. He is experiencing constant vertigo and on left lateral gaze he has rightward beating nystagmus. He also has nystagmus on vertical gaze. On test of skew he has no skew deviation which is reassuring that this is not central vertigo. However, on head impulse testing the patient does not have any corrective saccade which can be seen in the setting of central vertigo. During my examination of the patient he did have nausea and vomiting. Differential diagnosis includes posterior circulation stroke, benign paroxysmal positional vertigo, labyrinthitis, vestibular neuritis, among others. Workup was initiated with hematologic labs as well as a CT of the head without contrast and CTA of the head and neck. Initial interventions include 5 mg of Valium, 25 mg of meclizine, and 4 mg of Zofran. CTA of the head and neck as well as CT head without contrast as interpreted by radiology demonstrates no acute normality. Labs personally interpreted by me demonstrate no acute abnormality either. On repeat assessment of the patient's we have attempted to ambulate him and he is extremely unsteady on his feet and is extremely vertiginous. He is unable to ambulate at this time without significant dependence. Given the fact that his exam is showing mixed signs of potential central and peripheral etiology of his vertigo I do not feel comfortable discharging this patient home. I do feel that he needs further workup with MRI to rule out posterior circulation stroke. Therefore I had an interactive discussion with the neurology stroke team at [facility] in [place]. They have agreed to accept the patient for transfer to their hospital. Patient was transferred in stable condition. Critical Care Critical Care Time Critical Care Time: No
[2025-07-19 18:35] LABS: Albumin Level 4.5 g/dl (3.5-5.0); Chloride 107 mmol/L (98-107); Potassium 4.1 mmoL/L (3.5-5.1); Sodium 142 mmol/L (136-145)
[2025-07-19 18:38] LABS: Alanine Aminotransferase 20 U/L (12-78); Albumin/Globulin Ratio 1.4 (1.1-1.8); Alkaline Phosphatase 88 U/L (38-126); Anion Gap 17.1 mEq/L (5-15); Aspartate Amino Transferase 37 U/L (17-59); Bilirubin,Total 0.6 mg/dl (0.2-1.3); Blood Urea Nitrogen 16 mg/dl (9-20); Carbon Dioxide 22 mmol/L (22.0-30.0); Creatinine Clearance Estimated 107 mL/min (50-200); Creatinine,Serum 1.10 mg/dl (0.66-1.25); Estimated Glomerular Filt Rate 71 ml/min (>60); GFR (African American) 85 ML/MIN (>60); Globulin 3.3 g/dL (1.3-3.2); Total Protein,Serum 7.8 g/dl (6.3-8.2)
[2025-07-19 18:39] LABS: Calcium 9.4 mg/dl (8.4-10.2); Glucose 162 mg/dl (74-100)
[2025-07-19 18:43] LABS: INR 1.03 (0.9-1.1); Prothrombin Time 11.4 seconds (10.1-12.5)
[2025-07-19] MEDS: SODIUM CHLORIDE 0.9% 10ML SYR (RAD ONLY) 10 ML IV (19:02)
[2025-07-19] MEDS: 0.9 % SODIUM CHLORIDE 50 ML VIAL IV (19:02)
[2025-07-19] MEDS: IOPAMIDOL-370 (76%);100ML BOTTLE 80 ML IV (19:03)
[2025-07-19 20:11] LABS: Total Cells Counted 100
[2025-07-19 20:13] LABS: RBC Morphology Normal
--- NOTE | 2025-07-19 21:10 | PC.NURSE ---
Pt attempted to ambulate around the nurses station. Pt began to feel dizzy and pt was walked back to his room. notified.
--- NOTE | 2025-07-19 21:52 | PC.NURSE ---
Called [facility], accepted pt. EMS notified of transfer
== END 2025-07-19 23:08 | disposition other institution (70) ==
PROVIDERS: Emergency Provider Student in an Organized Health Care Education/Training Program; PCP Family Medicine
DX: R42 Dizziness and giddiness (principal); R26.2 Difficulty in walking, not elsewhere classified; H55.00 Unspecified nystagmus
CPT/HCPCS: 70450; 70496; 70498; 80053; 82962; 85007; 85025; 85027; 85610; 93005; 96374; 96375; 99285; J2405; J3360; Q9967

== ENCOUNTER → 2025-09-12 07:33 | Outpatient (CLI) | payer BC, SELFPAY ==
--- OUTSIDE RECORDS SUMMARY | 2025-05-21 05:15 | XMS_ITS ---
Author Organization [facility] Address [address] [facility] [address] [place], [place] [id number] Care Team Providers Care Manager Of Change Name Role Phone Blayne Brito Primary Care Provider Allergies No Known Allergies Results Component Value Reference Range Notes P-Comprehensive Metabolic Pa justino (CMP) Reviewed date:05/22/2025 08:59:13 AM Interpretation:Glu 100 Performing Lab: Notes/Report: Test performed by [facility] [address] [facility] , [address], [place] [address] Stephen Cerna MD, Fibre Cement Moulder CLIA: [id number] Sodium 141 135-145 mmol/L Potassium 4.9 3.5-5.3 mmol/L Chloride 105 97-108 mmol/L CO2 26 20-32 mmol/L Glucose 100 65-99 mg/dL BUN 14 6-20 mg/dL Creatinine 1.08 0.70-1.30 mg/dL Calcium 9.8 8.6-10.4 mg/dL eGFR by Creatinine 83 >59 mL/min/1.73m2 Protein 7.4 6.0-8.3 g/dL Albumin 4.3 3.5-5.3 g/dL Alkaline Phosphatase 92 40-129 IU/L ALT (SGPT) 16 <5-55 IU/L AST (SGOT) 17 <5-46 IU/L Bilirubin, Total 0.3 <0.2-1.2 mg/dL A/G Ratio 1.4 1.1-2.5 P-Lipid Panel Reviewed date:05/22/2025 08:59:13 AM Interpretation:Chol 204, Chol/HDL 5.10, Non-HDL 164, LDL 143, LDL/HDL 3.6 Performing Lab: Notes/Report: Test performed by [facility] [address] [place] [address] , [address], [place] [address] Stephen Cerna MD, Fibre Cement Moulder CLIA: [id number] Cholesterol 204 <200 mg/dL Triglycerides 104 <150 mg/dL HDL Cholesterol 40 >39 mg/dL Cholesterol / HDL Ratio 5.10 0.00-4.99 Ratio Non-HDL Cholesterol 164 <130 mg/dL LDL Cholesterol (Calculation) 143 <130 mg/dL LDL Cholesterol Levels* Less than 100 mg/dL Optimal 100 to 129 mg/dL Near Optimal/ Above Optimal 130 to 159 mg/dL Borderline High 160 to 189 mg/dL High 190 mg/dL and above Very High * Categories as recommended by the 2004 ATPIII guidelines LDL/HDL Ratio 3.6 <3.3 Ratio LDL Cholesterol Patient History Test Date: 05/21/2025 LDL Results: 143 Units: mg/dL % Change: - P-PSA Reviewed date:05/22/2025 08:59:14 AM Interpretation:Normal Performing Lab: Notes/Report: Test performed by [facility] [facility] , [address], [place] [address] Stephen Cerna MD, Fibre Cement [place] CLIA: [id number] PSA 0.93 <4.00 ng/mL Please note this is an ultrasensitive PSA assay with a lower limit of detection of 0.014 ng/mL. This test is performed by the Verna ECLIA methodology. Values obtained with different assay methods or kits cannot be directly compared. X ray : Foot, right Reviewed date:05/22/2025 08:59:14 AM Interpretation:No Bony Abnormality Performing Lab: Notes/Report: No Bony Abnormality REASON FOR VISIT establishment Medications Medication SIG (Take, Route, Fr equency, Duration) Notes Start Date End Date Status Claritin 10 MG 1 tablet Orally Once a day Active Meloxicam 15 MG 1 tablet Orally Once a day; Duration: 30 days 05/21/2025 Active Vital Signs Weight 207.4 lbs 05/21/2025 Blood pressure systolic 130 mm Hg 05/21/20 25 Blood pressure diastolic 80 mm Hg 025 Heart Rate 97 /min 05/21/2025 Height 76 in 05/21/2025 BMI 25.24 kg/m2 05/21/2025 Encounters Encounter Location Date Provider Diagnosis [facility] [address] [place], [place] [id number] 05/21/2025 Blayne [place] Pain of right heel M79.671 ; Screening, lipid Z13.220 ; Well adult exam Z00.00 ; Prostate cancer screening Z12.5 ; Colon cancer screening Z12.11 ; H/O kidney donation Z90.5 and BMI 25.0-25.9,adult Z68.25 Assessments Encounter Date Diagnosis (ICD Code) Assessment Notes Treatment Notes Treatment Clinical Notes Section Notes 05/21/2025 Pain of right heel (ICD-10 - M79.671) 05/21/2025 Screening, lipid (ICD-10 - Z13.220) 05/21/2025 Well adult exam (ICD-10 - Z00.00) 05/21/2025 Prostate cancer screening (ICD-10 - Z12.5) 05/21/2025 Colon cancer screening (ICD-10 - Z12.11) 05/21/2025 H/O kidney donation (ICD-10 - Z90.5) 05/21/2025 BMI 25.0-25.9,adult (ICD-10 - Z68.25) Plan Of Treatment Medication Medication Name Sig Start Date Stop Date Notes Meloxicam 15 MG 1 tablet Orally Once a day; Duration: 30 days 05/21/2025 Pending Test Test Name Order Date colonoscopy 05/21/2025 Next Appt Details Follow Up: via phone to repo rt progress, Reason: Provider Name:Blayne Zaragoza ry, 11/13/2025 09:15:00 AM, [address], [address], [place], [place], [id number], Progress Notes * Brian SWANSONDOB:1975 (50 yo M)Acc No.[id number]:05/21/2025 Progress Notes Patient: Brian GE Provider: Paige Brito M.D. :1975 A ge:50 Y S ex:Male Date:05/21/2025 Address:[address] [place], [place] [address] Subjective: * Chief Complaints: * 1 . Establishment. * HPI: H PI: 50 year old male presents with c/o Patient is here today for?Pt here to establish care, pt has not seen PCP since 2018. A nkle/Foot: c/o Pain P t complains of rt heel pain for a couple months. Pt states pain has worsened over the last couple weeks. Pt states he thinks he may have a bone spur. Pt has been icing area but has not had any relief. Pt denies swelling and redness. * ROS: D ERMATOLOGY: no R zachary. n o H emerita. G ASTROENTEROLOGY: no N ausea. n o V omiting. U ROLOGY: no D ifficulty urinating. n o B lood in urine. * Medical History: A llergic Rhinitis. * Surgical History: b roke 5th digit on left hand, surgery repair 2003, Tonsillectomy 3rd grade, Left Kidney Donation to [facility] 04/15/2013. * Hospitalization/Major Diagno stic Procedure: U [facility] due to Kidney donation- 4 nights 04/2013. * Family History: F ather: 58 yrs, diabetes, diagnosed with Diabetes, Heart Disease. M other: alive 56 yrs. P aternal Grand Father: , diabetes. P aternal Grand Mother: 75 yrs, diabetes, strokes. M aternal Grand Father: . M aternal Grand Mother: , cancer. S ibbessie: alive. C anand: alive. 1 sister(s) - healthy. 2 daughter(s) - healthy. . * Social History: C URRENT TOBACCO USE: No . C affeine: yes, frequency: daily, 1. Exercise: no. Home smoke detector use: yes. Marital Status: . Alcohol: no. 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 Past smoking status: no. Recreational drug use: no. Alcohol: No. Sexually active: yes. * Medications: T aking Claritin 10 MG Tablet 1 tablet Orally Once a day , Discontinued Medrol 4 MG Tablet Therapy Pack as directed orally daily , Discontinued Cyclobenzaprine HCl 10 MG Tablet 1/2 - 1 tab(s) orally 3 times a day, prn , Medication List reviewed and reconciled with the patient * Allergies: N .K.D.A. Objective: * Vitals: W t: 207.4, Temp: 98.0, BP: 130/80, HR: 97, Nurse: jenni, Ht: 76, BMI:25.24. * Examination: G eneral Examination: General Appearance: N AD. H eart: R SR. L ungs:?clear to auscultation. E xtremities: n o leg edema, tenderness to palpation over the anterior edge of the right calcaneus. Assessment: * Assessment: 1. P ain of right heel - M79.671 (Primary) 2 . S creening, lipid - Z13.220? 3. W ell adult exam - Z00.00 4 . P rostate cancer screening - Z12.5 5 . C olon cancer screening - Z12.11 6 . H /O kidney donation - Z90.5 7 . B [place] 25.0-25.9,adult - Z68.25 Plan: * Treatment: 2.?Screening, lipid?LAB: P-Lipid Panel (Collection Date & Time - 05/21/2025 09:50 AM)?Chol 204, Chol/HDL 5.10, Non-HDL 164, LDL 143, LDL/HDL 3.6* Value Reference Range C holesterol / HDL Ratio 5.10 H 0.00-4.99 - Ratio * C holesterol 204 H <200 - mg/dL * H DL Cholesterol 40 >39 - mg/dL * L DL Cholesterol (Calculation) 143 H <130 - mg/d L * L DL/HDL Ratio 3.6 H <3.3 - Ratio * N on-HDL Cholesterol 164 H <130 - mg/dL * T riglycerides 104 <150 - mg/dL * Vandana Costa 05/22/2025 08: 59:03 AM EDT > See phone encounter 3.?Well adult exam?LAB: P-Comprehensive Metabolic Panel (CMP) (Collection Date & Time - 05/21/2025 09:50 AM)?Glu 100* Value Reference Range A /G Ratio 1.4 1.1-2.5 - * A lbumin 4.3 3.5-5.3 - g/dL * A lkaline Phosphatase 92 40-129 - IU/L * A LT (SGPT) 16 <5-55 - IU/L * A ST (SGOT) 17 <5-46 - IU/L * B ilirubin, Total 0.3 <0.2-1.2 - mg/dL * B UN 14 6-20 - mg/dL * C alcium 9.8 8.6-10.4 - mg/dL * C hloride 105 97-108 - mmol/L * C O2 26 20-32 - mmol/L * C reatinine 1.08 0.70-1.30 - mg/dL * G lucose 100 H 65-99 - mg/dL * P otassium 4.9 3.5-5.3 - mmol/L * S odium 141 135-145 - mmol/L * P rotein 7.4 6.0-8.3 - g/dL * e GFR by Creatinine 83 >59 - mL/min/1.73m2 * Vandana Costa 05/22/2025 08: 59:03 AM EDT > See phone encounter 4.?Prostate cancer screening?LAB: P-PSA (Collection Date & Time - 05/21/2025 09:50 AM)?Normal* Value Reference Range P SA 0.93 <4.00 - ng/mL * Vandana Costa 05/22/2025 08: 59:03 AM EDT > See phone encounter 5.?Colon cancer screening?Imaging: colonoscopy* Dr. Engle on a Monday in an. 2025Yvonne Preston 05/21/2025 11:29:18 AM EDT > faxed to Yvonne Esparza 07/14/2025 09:53:22 AM EDT > Kiki from GI has tried to contact the patient but he has not responded; referral closed * Procedure Codes: 1 036F TOBACCO NON-USER, G8420 BMI<30 AND >=22 CALC & DOCU, 3075F SYST BP GE 130 - 139MM HG, 3079F DIAST BP 80-89 MM HG * Follow Up: v ia phone to report progress * Images: Billing Information: * Visit Code: 53364 Office Visit, New Pt., Level 4. * Procedure Codes: 1036F TOBACCO NON-USER. G8420 BMI<30 AND >=22 CALC & DOCU. 3075F SYST BP GE 130 - 139MM HG. 3079F DIAST BP 80-89 MM HG. * Electronic signature of Ysbael Brito MD on 09/12/2025 at 07:36 AM EST Sign off status: Pending * Provider: Paige Brito M.D. Date: 0 05/21/2025 Generated for Ana mcghee/Alyson/eTransmitting on: 1 11/12/2024 07:36 AM EST History and Physical Notes * HPI (History of Present Illness) Category Sub-Category Detail Notes Category Not es Ankle/Foot Pain Pt complains of rt heel pain for a couple months. Pt states pain has worsened over the last couple weeks. Pt states he thinks he may have a bone spur. Pt has been icing area but has not had any relief. Pt denies swelling and redness HPI Patient is here today for Pt her e to establish care, pt has not seen PCP since 2018 Examination Category Sub-Category Detail Notes Category Not es General Examination Heart: RSR Lungs: clear to auscultatio n Extremities: no leg edema, tender ness to palpation over the anterior edge of the right calcaneus General Appearance: NAD
--- OUTSIDE RECORDS SUMMARY | 2025-07-19 23:22 | XMS_ITS | Encounter Summary ---
[facility] Address [address] [place] [address] Care Team Providers Care Team Physician Name Role Phone Provider, No Known Primary Care Provider Unavail able Reason for Visit * Auth/Cert Specialty Diagnoses / Procedures Referred By Jessy t Referred To Contact Diagnoses Stroke CVA Referral ID Status Reason Start Date Expiration Date Visits Re quested Visits Authorized [id number] 1 1 Encounter Details Date Type Department Care Team (Late st Contact Info) Description 07/20/2025 12:22 AM EDT - 07/21/2025 2:21 PM EDT Hospital Encounter [facility] [address] [place] [address] Jurgen Beatty III, DO [address] [place], [place] [id number] Kelly Watkins MD [address] [place] [address] Benign paroxysmal positional vertigo, unspecified laterality (Primary Dx) Discharge Disposition: Home or Self Care Social History Tobacco Use Types Packs/Day Years Used Date Smoking Tobacco: Never Passive Smoke Exposure: Never Smokeless Tobacco: Never Tobacco Cessation:Counseling Given: No Alcohol Use Standard Drinks/Week Comments Never 0 (1 standard drink = 0.6 oz pur e alcohol) AUDIT-C Answer Date Recorded Q1: How often do you have a drink containing alcohol? Never 07/20/2025 Q2: How many drinks containi ng alcohol do you have on a typical day when you are drinking? Patient does not drink Q3: How often do you have si x or more drinks on one occasion? Never 07/20/2025 Abuse Screen Answer Date Recorded Feels Unsafe at Home or Work/School no 07/20/2025 Feels Threatened by Someone no 07/07 Does Anyone Try to Keep You From Having Contact with Others or Doing Things Outside Your Home? no 07/20/2025 Physical Signs of Abuse Present no 07/20/2025 Housing Stability Answer Date Recorded Current Living Arrangements home 07/07 Potentially Unsafe Housing Conditions none 07/21/2025 Disabilities Answer Date Recorded Difficulty Concentrating, Remembering or Making Decisions no 07/20/2025 Difficulty Managing Errands Independently no 07/20/2025 Sex and Gender Information Value Date Recorded Sex Assigned at Not on file Legal Sex Male 9:38 PM EDT Gender Identity Not on file Sexual Orientation Not on file documented as of this encounter Last Filed Vital Signs Vital Sign Reading Time Taken Comments Blood Pressure 156/95 07/21/2025 11:35 AM EDT Pulse 71 07/21/2025 11:35 AM EDT Temperature 36.6 C (97.8 F) 07/21/2025 11:35 AM EDT Respiratory Rate 18 07/21/2025 11:35 AM EDT Oxygen Saturation 99% 07/21/2025 11:35 AM EDT Inhaled Oxygen Concentration - - Weight 92.1 kg (203 lb 0.7 oz) 07/20/2025 10:13 AM EDT Height 190.5 cm (6' 3 ) 07/20/2025 10:13 AM EDT Body Mass Index 25.38 07/20/2025 10:13 AM EDT documented in this encounter Functional Status * Question Answer Date of Assessment Author 1. Wish to be (Past 1 Month) No 025 1:11 AM EDT Lay Lorenz RN 2. Non-Specific Active Suici erwin Thoughts (Past 1 Month) No 07/20/2025 1:11 AM EDT Alba Lorenz RN * Calculated C-SSRS Risk Score (Lifetime/Recent) Answer Date of Assessment Author No Risk Indicated 07/20/2025 1:11 AM EDT Lay Lorenz RN * [place] Suicide Severity Rating Scale (Screener/Recent Self-Report) Question Answer Date of Assessment Author 6. Suicidal Behavior (Lifetime) No 1:11 AM EDT Lay Lorenz RN documented as of this encounter Discharge Summaries * Kelly Watkins MD - 07/21/2025 7:08 AM EDT Images from the original note were not included. [facility] Medicine [facility] DISCHARGE SUMMARY Patient Name: Brian Swanson : 1975 Date of Admission: 07/20/2025 12:22 AM Date of Discharge: 07/21/2025 Primary Care Physician: Provider, No Known Consults Date and Time Order Name Status Description 07/20/2025 10:19 AM Inpatient Neurology Consult General Completed Hospital Course Presenting Problem: BPPV Active Hospital Problems Diagnosis POA BPPV (benign paroxysmal positional vertigo) [H81.10] Yes Hyperlipidemia [E78.5] Yes Pre-diabetes [R73.03] Yes Resolved Hospital Problems No resolved problems to display. Hospital Course: Brian Swanson is a 50 y.o. male w hx of solitary kidney (donated other kidney to his father), who presented as a transfer from [facility] for evaluation of sudden onset dizziness. MRI brain negative for CVA. Dizziness - likely BPPV -Improved w Brunilda maneuver and had horizontal nystagmus per discussion with PT -PRN meclizine -Continue with patient vestibular therapy with PT outpatient -Discussed w pt to follow-up w PCP for clearance to return to work; discussed that his dizziness needed to be resolved prior to return to work Leukocytosis, likely reactive in the setting of vomiting -Other than vomiting in the setting of dizziness, no other infectious symptoms -Dramatically improved Hyperlipidemia-statin; discussed with patient and recommended dietary changes as well Prediabetes-A1c 5.8%, discussed with patient recommended dietary changes, exercise Discharge Follow Up Recommendations for outpatient labs/diagnostics: Follow-up with PCP in 5-7 days regarding this hospitalization, chronic disease management, repeat labs (CBC, CMP) Day of Discharge HPI: Patient feels significantly better today. Was able to ambulate in the hallway with minimal dizziness. Symptoms significantly improved with Brunilda maneuver. No nausea or vomiting. No chest pain or shortness of breath. No other concerns. Review of Systems As above Vital Signs: Temp: [97.5 ??F (36.4 ??C)-98.1 ??F (36.7 ??C)] 97.8 ??F (36.6 ??C) Heart Rate: [58-79] 58 Resp: [14-18] 18 BP: (101-146)/(64-94) 121/82 Physical Exam: Constitutional: No acute distress, awake, alert HENT: NCAT, mucous membranes moist Respiratory: Clear to auscultation bilaterally, respiratory effort normal Cardiovascular: RRR Gastrointestinal: Positive bowel sounds, soft, nontender, nondistended Musculoskeletal: No bilateral ankle edema Psychiatric: Appropriate affect, cooperative Neurologic: Alert, oriented, symmetric facies, moves all extremities, conversant, speech clear Skin: No rashes Pertinent and/or Most Recent Results LAB RESULTS: Lab 07/21/25 0950 07/20/25 0752 WBC 11.33* 16.16* HEMOGLOBIN 15.0 14.8 HEMATOCRIT 46.7 44.3 PLATELETS 305 294 NEUTROS ABS 8.31* 12.70* IMMATURE GRANS (ABS) 0.04 0.09* LYMPHS ABS 2.15 2.31 MONOS ABS 0.66 1.00* EOS ABS 0.13 0.02 MCV 94.7 92.1 Lab 07/20/25 0752 SODIUM 142 POTASSIUM 3.8 CHLORIDE 107 CO2 24.0 ANION GAP 11.0 BUN 13.4 CREATININE 0.85 EGFR 105.2 GLUCOSE 96 CALCIUM 8.9 MAGNESIUM 2.1 HEMOGLOBIN A1C 5.82* Lab 07/20/25 0752 TOTAL PROTEIN 6.8 ALBUMIN 4.0 GLOBULIN 2.8 ALT (SGPT) 11 AST (SGOT) 13 BILIRUBIN 0.5 ALK PHOS 73 Lab 07/20/25 1119 07/20/25 0752 HSTROP T 8 7 Lab 07/20/25 0752 CHOLESTEROL 187 LDL CHOL 137* HDL CHOL 40 TRIGLYCERIDES 54 Brief Urine Lab Results None Microbiology Results (last 10 days) No results found for the last 240 hours. MRI Brain Without Contrast Result Date: 07/20/2025 MRI BRAIN WO CONTRAST Date of Exam: 07/20/2025 2:05 AM EDT Indication: Stroke, follow up vertigo, gait instability. Comparison: None available. Technique: Routine multiplanar/multisequence sequence images of the brain were obtained without contrast administration. Findings: Diffusion images reveal no acute or subacute infarct. Ventricular size and configuration are within normal limits. White matter signal is within normal limits for patient age. No acute hemorrhage is identified. Craniocervicaljunction is normal. Pituitary gland is unremarkable. No masses are seen allowing for the lack of contrast. The major intracranial flow voids are maintained. No mastoid effusion is identified. Negative brain MRI. No evidence of acute or subacute infarct. No acute hemorrhage. Electronically Signed: Nam Davis MD 07/20/2025 6:44 AM EDT Workstation ID: [id number] Results for orders placed during the hospital encounter of 07/20/25 Adult Transthoracic Echo Complete W/ Cont if Necessary Per Protocol (With Agitated Saline) 07/20/2025 10:36 AM Interpretation Summary Left ventricular systolic function is normal. Calculated left ventricular EF = 62.6% Left ventricular ejection fraction appears to be 61 - 65%. Left ventricular diastolic function was normal. Saline test results are negative. Estimated right ventricular systolic pressure from tricuspid regurgitation is normal (<35 mmHg).Calculated right ventricular systolic pressure from tricuspid regurgitation is 19 mmHg. I have personally reviewed the therapy plans: [] PT/OT/ ST Therapy Plans Plan for Follow-up of Pending Labs/Results: Discharge Details Discharge Medications New Medications Instructions Start Date meclizine 25 MG tablet Commonly known as: ANTIVERT 25 mg, Oral, 3 Times Daily PRN PHARMACY MEDS TO BED CONSULT Not Applicable, Daily Continue These Medications Instructions Start Date Claritin 10 MG tablet Generic drug: loratadine 10 mg, Daily No Known Allergies Discharge Disposition: Home or Self Care Diet: Hospital: Diet Order Procedures Diet: Cardiac; Healthy Heart (2-3 Na+); Fluid Consistency: Thin (IDDSI 0) This is if swallow eval/bedside dysphagia screen is passed. If not, n.p.o./sips with meds. Standing Status: Standing Number of Occurrences: 1 Diets:: Cardiac Cardiac Diet:: Healthy Heart (2-3 Na+) Fluid Consistency:: Thin (IDDSI 0) Diet Instructions Diet: Cardiac Diets; Healthy Heart (2-3 Na+); Regular (IDDSI 7); Thin (IDDSI 0) Discharge Diet: Cardiac Diets Cardiac Diet: Healthy Heart (2-3 Na+) Texture: Regular (IDDSI 7) Fluid Consistency: Thin (IDDSI 0) Activity: Restrictions or Other Recommendations: CODE STATUS: Code Status and Medical Interventions: CPR (Attempt to Resuscitate); Full Support Ordered at: 07/20/25 0157 Code Status (Patient has no pulse and is not breathing): CPR (Attempt to Resuscitate) Medical Interventions (Patient has pulse or is breathing): Full Support Level Of Support Discussed With: Patient No future appointments. Additional Instructions for the Follow-ups that You Need to Schedule Call MD With Problems / Concerns As directed Please seek medical attention for any of the following: Difficulty breathing, chest pain, passing out, strokelike symptoms, and/or any other concerning symptoms Order Comments: Please seek medical attention for any of the following: Difficulty breathing, chestpain, passing out, strokelike symptoms, and/or any other concerning symptoms Discharge Follow-up with PCP As directed Currently Documented PCP: Provider, No Known PCP Phone Number: None Follow Up Details: Follow-up with PCP in 5-7 days regarding this hospitalization, chronic disease management, repeat labs (CBC, CMP) Kelly Watkins MD 07/21/25 Time Spent on Discharge: I spent 34 minutes on this discharge activity which included: [id number] with the patient, reviewing the data in the system, coordination of the care with the nursing staff as well as consultants, documentation, and entering orders. * Jumana Jacome MS [facility]-UNIFORM ATTENDANT - 07/20/2025 11:14 AM EDT Images from the original note were not included. Acute Care - Speech Language Pathology Initial Evaluation/Discharge [facility] Cognitive-Communication Evaluation Patient Name: Brian Swanson : 1975 Today's Date: 07/20/2025 Admit Date: 07/20/2025 Visit Dx: No diagnosis found. Patient Active Problem List Diagnosis Dizziness History reviewed. No pertinent past medical history. History reviewed. No pertinent surgical history. UNIFORM ATTENDANT Recommendation and Plan Recommended discharge disposition is based on the functional assessment performed by PT/OT/Speech therapy (as applicable) and may not reflect the medical necessity determined by your provider or services covered by an individual patient's insurance plan or patient resource. UNIFORM ATTENDANT Diagnosis: functional speech/language skills, functional cognitive- linguistic skills (07/20/251039) [facility] [place] for [place]illed Therapy Interventions Met: no problems identified which require skilled intervention (07/20/251039) Anticipated Discharge Disposition (UNIFORM ATTENDANT): No further UNIFORM ATTENDANT services warranted (07/20/251039) Therapy Frequency (UNIFORM ATTENDANT [facility] [place] evaluation only (07/20/251039) Reason for Discharge: all goals and outcomes met, no further needs identified (07/20/251039) UNIFORM ATTENDANT EVALUATION (Last 72 Hours) UNIFORM ATTENDANT [facility] [place] Row Name 07/20/251039 Communication Assessment/Intervention Document Type discharge evaluation/summary - Subjective Information complains of;dizziness - Patient Observations alert;cooperative;agree to therapy - Patient/Family/Caregiver Comments/Observations family present - Patient Effort excellent - Symptoms Noted During/After Treatment dizziness;other (see comments) reason for admission, RN and MD aware - General Information Patient Profile Reviewed yes - Precautions/Limitations, Vision WFL;for purposes of eval -CH Precautions/Limitations, Hearing WFL;for purposes of eval - Prior Level of Function-Communication WF - Plans/Goals Discussed with patient;agreed upon - Barriers to Rehab none identified - Patient's Goals for Discharge return to all previous roles/activities - Pain Pretreatment Pain Rating 0/10 - no pain - Posttreatment Pain Rating 0/10 - no pain - Comprehension Assessment/Intervention Comprehension Assessment/Intervention Auditory Comprehension;Reading Comprehension - Auditory Comprehension Assessment/Intervention Auditory Comprehension (Communication) WFL - Narrative Discourse WFL - Reading Comprehension Assessment/Intervention Reading Comprehension (Communication) WFL;unable/difficult to assess;other (see comments) d/t dizziness - Expression Assessment/Intervention Expression Assessment/Intervention verbal expression;graphic expression - Verbal Expression Assessment/Intervention Verbal Expression WFL - Conversational Discourse/Fluency WFL - Graphic Expression Assessment/Intervention Graphic Expression WFL;unable/difficult to assess;mild impairment;other (see comments) d/t dizziness, inability to focus - Oral Musculature and Cranial Nerve Assessment Oral Motor General Assessment WFL - Motor Speech Assessment/Intervention Motor Speech Function WFL - Conversational Speech (Communication) WFL - Speech intelligibility 100%;in quiet environment;in connected speech;with unfamiliar listener - Cursory Voice Assessment/Intervention Quality and Resonance (Voice) WFL - Cognitive Assessment Intervention- UNIFORM ATTENDANT Cognitive Function (Cognition) WFL - Orientation Status (Cognition) WFL - Memory (Cognitive) WFL - Attention (Cognitive) WFL -CH Thought Organization (Cognitive) WFL - Reasoning (Cognitive) WFL - Problem Solving (Cognitive) WFL - Functional Math (Cognitive) WFL - Executive Function (Cognition) WFL - Pragmatics (Communication) WFL -CH UNIFORM ATTENDANT Evaluation Clinical Impressions UNIFORM ATTENDANT Diagnosis functional speech/language skills;functional cognitive-linguistic skills - [facility] Criteria for Skilled Therapy Interventions Met no problems identified which require skilled intervention - Recommendations Therapy Frequency (UNIFORM ATTENDANT [facility]) evaluation only - Anticipated Discharge Disposition (UNIFORM ATTENDANT) No further UNIFORM ATTENDANT services warranted - UNIFORM ATTENDANT Discharge Summary Discharge Diagnostic Statement no deficits identified with speech, language or cognition - Progress Toward Achieving Short/shelter Goals discharge on same date as initial evaluation - Reason for Discharge all goals and outcomes met, no further needs identified - User Chavez (r) = Recorded By, (t) = Taken By, (c) = Cosigned By Initials Name Effective Dates Jumana Tsai MS CCC-UNIFORM ATTENDANT 11/25/24 - EDUCATION The patient has been educated in the following areas: Cognitive Impairment Communication Impairment. Time Calculation: Time Calculation- UNIFORM ATTENDANT Row Name 07/20/25 1114 Time Calculation- UNIFORM ATTENDANT UNIFORM ATTENDANT Start Time 1040 - UNIFORM ATTENDANT Received On 07/20/25 - Untimed Charges UNIFORM ATTENDANT Eval/Re-eval ST Eval Speech and Production w/ Language - [id number] -CH [id number] Eval Speech and Production w/ Language Minutes 40 -CH Total Minutes Untimed Charges Total Minutes 40 -CH Total Minutes 40 -CH User Chavez (r) = Recorded By, (t) = Taken By, (c) = Cosigned By Initials Name Provider Type Jumana Tsai MS CCC-UNIFORM ATTENDANT Speech and Language Pathologist Therapy Charges for Today Code Description Service Date Service Provider Modifiers Qty [id number] HC ST EVAL SPEECH AND PROD W LANG 3 07/20/2025 Jumana Jacome MS CCC-UNIFORM ATTENDANT GN 1 UNIFORM ATTENDANT Discharge Summary Anticipated Discharge Disposition (UNIFORM ATTENDANT): No further UNIFORM ATTENDANT services warranted Reason for Discharge: all goals and outcomes met, no further needs identified Progress Toward Achieving Short/radio maintainer Goals: discharge on same date as initial evaluation Jumana Jacome MS CCC-UNIFORM ATTENDANT 07/20/2025 documented in this encounter Medications at Time of Discharge loratadine (Claritin) 10 MG tablet Take 1 tablet by mouth Daily. meclizine (ANTIVERT) 25 MG tablet Take 1 tablet by mouth 3 (Three) Times a Day As Needed for Dizziness. 21 tablet 07/21/2025 11:56 AM EDT 07/21/2025 PHARMACY MEDS TO BED CONSULT Use Daily. 07/21/2025 documented as of this encounter Progress Notes * Kelly Watkins MD - 07/20/2025 7:28 AM EDT Images from the original note were not included. [facility] ADMISSION FOLLOW-UP NOTE Patient admitted after midnight, H&P by my partner performed earlier on today's date reviewed. Interim findings, labs, and charting also reviewed. [facility] Hospital Problem List has been managed and updated to include any new diagnoses: Active Hospital Problems Diagnosis POA Dizziness [R42] Yes Resolved Hospital Problems No resolved problems to display. ADDITIONAL PLAN: - detailed assessment and plan from admission reviewed - patient seen and examined 50yo M w hx of solitary kidney (donated other kidney to his father), who [facility] a transfer [facility] for evaluation of sudden onset dizziness. MRI brain negative for CVA. Dizziness - likely BPPV -Worse w head movements -Improved w Brunilda maneuver and had horizontal nystagmus per discussion with PT - Scheduled meclizine -Continue with PT with repeat Brunilda maneuver tomorrow Leukocytosis, likely reactive in the setting of vomiting -Other than vomiting in the setting of dizziness, no other infectious symptoms - Monitor in a.m. Hyperlipidemia-statin; discussed with patient and recommended dietary changes as well Prediabetes-A1c 5.8%, discussed with patient recommended dietary changes, exercise Updated patient and his bedside with patient's permission Expected Discharge Expected discharge date/ time has not been documented. Kelly Watkins MD 07/20/25 documented in this encounter H&P Notes * Jurgen Beatty III, DO - 07/20/2025 2:47 AM EDT Images from the original note were not included. [facility] HISTORY AND PHYSICAL Patient Name: Brian Swanson : 1975 Primary Care Physician: Provider, No Known Date of admission: 07/20/2025 Subjective Subjective Chief Complaint: Dizziness HPI: Brian Swanson is a 50 y.o. male who states that at around 4:45 PM earlier today (Thursday 07/19) he was driving a car and had rather abrupt onset of dizziness. He was able to pull the car over without incident, eventually was taken to the ER at [facility]. CT imaging there did not show anything acute, they requested transfer here for full stroke/CVA workup. The patient and his daughter, who accompanies him during my visit up in his room, both deny the patient ever had any slurred speech orfacial droop. The patient does confirm diaphoresis on arrival in the ED at [place], but this has not recurred. Patient denies any focal weakness, also no blurred vision or syncope. He states that closing his eyes improves his dizziness somewhat, but it is made worse with any movement of his head. He states that it feels like my eyes keep going to the right. He also confirms nausea and a few bouts of emesis due to the dizziness (no shirley blood in the emesis). He has a single kidney, having donated the other kidney to his father in the past, but otherwise has no medical history and takes no home medications other than qdtg-lbf-ltuyuik agents as needed for seasonal allergies. Personal History History reviewed. No pertinent past medical history. History reviewed. No pertinent surgical history. Family History: He states mother has no chronic medical problems; father had renal disease. Social History: reports that he has never smoked. He has never been exposed to tobacco smoke. He has never used smokeless tobacco. He reports that he does not drink alcohol and does not use drugs. Social History Social History Narrative Not on file Medications: Available home medication information reviewed. loratadine No Known Allergies Objective Objective Vital Signs: Total (NIH Stroke Scale): 0 Physical Exam Constitutional: Awake, alert, NAD, pleasant. Eyes: PERRLA, sclerae anicteric, no conjunctival injection HENT: NCAT, mucous membranes moist Neck: Supple, no thyromegaly, no lymphadenopathy, trachea midline Respiratory: Clear to auscultation bilaterally, nonlabored respirations Cardiovascular: RRR, no murmurs, rubs, or gallops, palpable pedal pulses bilaterally Gastrointestinal: Positive bowel sounds, soft, nontender, nondistended Musculoskeletal: No bilateral ankle edema, no clubbing or cyanosis to extremities Psychiatric: Appropriate affect, cooperative Neurologic: Oriented x 3, strength symmetric in all extremities, Cranial Nerves grossly intact to confrontation, speech clear Skin: No rashes, normal turgor. Result Review: I have personally reviewed the results from the time of this admission to 07/20/2025 02:48 EDT and agree with these findings: [x] Laboratory list / accordion [] Microbiology [x] Radiology [] EKG/Telemetry [] Cardiology/Vascular [] Pathology [x] Old records [] Other: Most notable findings include: Reviewed data and accompanying paperwork from sending hospital including labs and radiology report from CT head. Awaiting new lab work here, as well as EKG, and MRI brain result. LAB RESULTS: Microbiology Results (last 10 days) No results found for the last 240 hours. No radiology results from the last 24 hrs Assessment & Plan Assessment & Plan Dizziness 50M with dizziness, concern for stroke Dizziness Concern for stroke - Daily aspirin and statin. - PT/OT/UNIFORM ATTENDANT; neuro checks; HbA1c/lipid panel; 2D echo. - Await MRI brain result. - Meclizine 25 mg p.o. twice daily as needed. - Remainder of stroke workup per neurology team, will follow-up their recommendations. Total time spent: 75 minutes Time spent includes time reviewing chart, doiz-re-owfi time, counseling patient/family/caregiver, ordering medications/tests/procedures, communicating with other health manager progressive care, documenting clinical information in the electronic health record, and coordination of care. VTE Prophylaxis: Mechanical VTE prophylaxis orders are present. CODE STATUS: full Code Status and Medical Interventions: CPR (Attempt to Resuscitate); Full Support Ordered at: 07/20/25 0157 Code Status (Patient has no pulse and is not breathing): CPR (Attempt to Resuscitate) Medical Interventions (Patient has pulse or is breathing): Full Support Level Of Support Discussed With: Patient Expected Discharge Expected discharge date/ time has not been documented. Jurgen Beatty III, 07/20/25 documented in this encounter Consult Notes * Maverick ChristensenANGY - 07/20/2025 1:10 AM EDT Stroke Consult Note Patient Name: Brian Swanson Age: 50 y.o. Sex: male : 1975 Primary Care Physician: Provider, No Known Referring Physician: OS ER physician TIME STROKE TEAM CALLED: [id number] EST ARRIVAL TO [facility] 0022 EST TIME PATIENT SEEN: 0045 EST Handedness: Right Race: White Chief Complaint/Reason for Consultation: Dizziness, gait instability HPI: Mr. Swanson is a 50-year-old male with no pertinent PMH. He presents to [facility] as a transfer from [facility] for higher level care and further stroke workup. Patient reports he was in his normal state of health prior to clocking out at work at 4:10 PM. While driving home patient had acute onset of dizziness. Patient managed to drive to a safe spot where he could warehouse order puller withoutincident. Mr. Swanson called his daughter who came to pick him up and take him to [facility] for furtherevaluation. ER physician reports nystagmus on vertical gaze and a mixed hints exam. Patient received diazepam, meclizine and Zofran while in the ED with minimal symptom relief. Patient reports dizziness is worse with any movement. Nausea is persistent but has improved with medication. Patient also mentions having a dull left ear ache last week without illness. Initial NIH is 0. Blood pressure 142/95. On exam patient is able to answer questions appropriately and follow two-step commands. Denies any sensory deficits at this time. No headache, falls or recenttrauma. Strength in all extremities 5/5. Non-smoker and no EtOH use. Patient is not currently prescribed any home medications. Last Known Normal Date/Time: 07/19/2025 at 1610 EST Review of Systems Constitutional: Negative for fever. HENT: Negative for trouble swallowing and voice change. Eyes: Negative for visual disturbance. Respiratory: Negative for shortness of breath. Cardiovascular: Negative for chest pain. Gastrointestinal: Positive for nausea. Negative for abdominal pain. Musculoskeletal: Positive for gait problem. Neurological: Positive for dizziness. Negative for facial asymmetry, speech difficulty, weakness, light-headedness, numbness and headaches. Psychiatric/Behavioral: Negative for confusion. History reviewed. No pertinent past medical history. History reviewed. No pertinent surgical history. History reviewed. No pertinent family history. Social History Socioeconomic History Marital status: Tobacco Use Smoking status: Never Passive exposure: Never Smokeless tobacco: Never Vaping Use Vaping status: Never Used Substance and Sexual Activity Alcohol use: Never Drug use: Never Sexual activity: Yes Partners: Female No Known Allergies Prior to Admission medications Medication Sig Start Date End Date Taking? Authorizing Provider loratadine (Claritin) 10 MG tablet Take 1 tablet by mouth Daily. Yes Provider, Ramone, Temp: [97.8 ??F (36.6 ??C)] 97.8 ??F (36.6 ??C) Resp: [18] 18 BP: (142)/(95) 142/95 Neurological Exam Mental Status Alert. Oriented to person, place and time. Oriented to person, place, and time. Speech is normal. Language is fluent with no aphasia. Cranial Nerves CN II: Visual patel full to confrontation. CN III, IV, : Extraocular movements intact bilaterally. Pupils equal round and reactive to light bilaterally. Nystagmus. CN V: Facial sensation is normal. CN VII: Full and symmetric facial movement. CN VIII: Hearing intact. CN XI: Shoulder shrug strength is normal. CN XII: Tongue midline without atrophy or fasciculations. Motor Normal muscle bulk throughout. Normal muscle tone. Strength is 5/5 throughout all four extremities. Sensory Light touch is normal in upper and lower extremities. Coordination Right: Qvjmah-vz-orja normal. Ltuk-tt-kawm normal.Left: Dcpmbu-uc-reso normal. Odmz-be-umfh normal. Gait Unable to assess. Physical Exam Constitutional: General: He is not in acute distress. HENT: Head: Normocephalic and atraumatic. Nose: Nose normal. Mouth/Throat: Mouth: Mucous membranes are dry. Eyes: Extraocular Movements: Extraocular movements intact. Pupils: Pupils are equal, round, and reactive to light. Cardiovascular: Pulses: Normal pulses. Pulmonary: Effort: Pulmonary effort is normal. Abdominal: General: Abdomen is flat. Musculoskeletal: General: Normal range of motion. Cervical back: Normal range of motion. Skin: General: Skin is warm and dry. Neurological: Mental Status: He is alert and oriented to person, place, and time. Cranial Nerves: Cranial nerve deficit present. Sensory: No sensory deficit. Motor: Motor strength is normal.No weakness. Coordination: Coordination normal. Psychiatric: Mood and Affect: Mood normal. Speech: Speech normal. Behavior: Behavior normal. Acute Stroke Data Thrombolytic Inclusion / Exclusion Criteria Time: 03:57 EDT Person Administering Scale: Maverick Christensen APRN YES NO INCLUSION CRITERIA CLASS I [x] [] Suspected diagnosis of acute ischemic stroke with measureable neurological deficit. Low NIHSS with disabling stroke symptoms. [] [x] Onset of stroke symptoms < 3 hours before beginning treatment >/ 18 years old Stroke symptom onset = time patient was last seen well or without symptoms (LKW) [] [x] Onset of symptoms between 3-4.5 hours: >/= 80 years old (safe Class IIa) with history of both diabetes and prior CVA (reasonable Class IIb) AND NIHSS </= 25 *If not eligible for IV Thrombolytic consider neuro intervention for LKW within 24 hours YES NO EXCLUSION CRITERIA (CONTRAINDICATIONS) CLASS III EVIDENCE HARM [] [] Blood pressure >185/110 medically refractory to IV medications [] [] Active bleeding at a non-compressible site [] [] Active intracranial hemorrhage (ICH) [] [] Symptoms suggestive of subarachnoid hemorrhage (SAH) [] [] GI bleed within 21 days [] [] Ischemic stroke within 3 months [] [] Severe head trauma within 3 months [] [] Intracranial or intraspinal surgery within 3 months [] [] Current GI malignancy [] [] Intracranial neoplasm [] [] Infective endocarditis [] [] Aortic arch dissection [] [] Active coagulopathy with INR >1.7, platelets <100,000, PTT > 40 sec, PT > 15 sec *For warfarin, administration can begin before blood tests resulted. Discontinue for above values. [] [] Treatment dose* of LMWH (Lovenox) in last 24 hours *prophylactic dosages are not a contraindication [] [] Concurrent use of antiplatelet agents' glycoprotein inhibitors IIb/IIIa (Integrilin, etc.) [] [] Thrombin or factor Xa inhibitors (Eliquis, Xarelto, Arixtra) taken in last 48 hours YES NO CLASS II: AIS WITH THE FOLLOWING CONDITIONS - TREATMENT RISKS SHOULD BE WEIGHED AGAINST POSSIBLE BENEFITS. [] [] Major trauma in last 14 days, recent major surgery in last 14 days, intracranial arterial dissection, giant unruptured and unsecured intracranial aneurysm, pericarditis [] [] The risks, benefits, and alternatives have been discussed with the patient or family related to the administration of IV thrombolytic therapy for stroke symptoms. [] [] I have discussed and reviewed the patient's case and imaging with the attending prior to IV thrombolytic therapy. TIME N/A Time IV thrombolytic administered Hospital Meds: Scheduled- aspirin, 81 mg, Oral, Daily Or aspirin, 300 mg, Rectal, Daily atorvastatin, 80 mg, Oral, Nightly melatonin, 5 mg, Oral, Nightly sodium chloride, 10 mL, Intravenous, Q12H sodium chloride, 10 mL, Intravenous, Q12H Infusions- lactated ringers, 75 mL/hr, Last Rate: 75 mL/hr (07/20/25 0300) PRNs- acetaminophen OR acetaminophen OR acetaminophen Calcium Replacement - Follow Nurse / BPA Driven Protocol HYDROcodone-acetaminophen Magnesium Standard Dose Replacement - Follow Nurse / BPA Driven Protocol meclizine Morphine AND naloxone nitroglycerin ondansetron Phosphorus Replacement - Follow Nurse / BPA Driven Protocol Potassium Replacement - Follow Nurse / BPA Driven Protocol sodium chloride sodium chloride sodium chloride sodium chloride Functional Status Prior to Current Stroke/Kellogg Score: MODIFIED JOEY SCALE (to be assessed for each patient having history of stroke) []Stroke history but not assessed [x]0: No symptoms at all []1: No significant disability despite symptoms []2: Slight disability []3: Moderate disability []4: Moderately severe disability []5: Severe disability []6: NIH Stroke Scale Time: 03:57 EDT Person Administering Scale: Maverick Christensen APRN MODIFIED JOEY SCALE (to be assessed for each patient having history of stroke) []Stroke history but not assessed [x]0: No symptoms at all []1: No significant disability despite symptoms []2: Slight disability []3: Moderate disability []4: Moderately severe disability []5: Severe disability []6: Results Reviewed: I have personally reviewed current lab, radiology, and data and agree with results. CBC WBC 16.1 RBC 5.15 Hgb 15.1 HCT 46.8 PLT 343 PT 11.4 INR 1.03 CMP Sodium 142 Potassium 4.1 Chloride 107 Carbon dioxide 22 Bun 16 Creatinine 1.10 Glucose 162 AST 37 ALT 20 OSH CTh Impression: No acute intracranial findings. OSH CTA head Impression: No large vessel occlusion or flow-limiting stenosis. OSH CTA neck Impression: No flow-limiting stenosis or occlusion. No dissection. Assessment/Plan: Mr. Swanson is a 50-year-old male with no pertinent PMH. He presents to [facility] as a transfer from [facility] for higher level care and further stroke workup. Patient reports he was in hisnormal state of health prior to clocking out at work at 4:10 PM. While driving home patient had acute onset of dizziness. 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 Mr. Swanson called his daughter who came to pick him up and take him to [facility] ER for further evaluation. ER physician reports nystagmus on vertical gaze and a mixed hints exam. Patient received diazepam, meclizine and Zofran while in the ED with minimal symptom relief. Patient reports dizziness is worse with any movement. Nausea is persistent but has improved with medication. Patient also mentions having a dull left ear ache last week without illness. Patient is not a candidate for IV thrombolytic therapy due to last known well greater than 4.5 hours. Patient is not a candidate for endovascular therapy due to no LVO reported on OSH CT scans. Antiplatelet SANDFILL OPERATOR: None Anticoagulant SANDFILL OPERATOR: None Dizziness, gait instability Differentials include TIA, CVA, vertigo Initiate TIA/CVA without IV thrombolytic therapy order set N.p.o. until bedside dysphagia screening completed by RN Activity as tolerated Aspirin 81 mg p.o. daily Atorvastatin 80 mg p.o. nightly MRI brain without contrast routine TTE routine A1C, lipid panel routine Neurochecks per unit protocol Blood pressure goals, SBP less than 220 nutrition educator to see if appropriate PT/OT/UNIFORM ATTENDANT eval and treat Case management to follow Plan of care discussed with hospital team, patient, family at bedside and primary RN. Stroke neurology will continue to follow. Thank you for this consult. Call with any questions or concerns. Maverick Christensen, MEAT CUTTING BLOCK REPAIRER July 20, 2025 03:57 EDT Cosigned by Inderjit Sapp MD at 07/21/2025 8:54 AM EDT Associated attestation - Inderjit Sapp MD - 07/21/2025 8:54 AM EDT I have reviewed this documentation and agree. documented in this encounter Nursing Notes * Madian Winston PT - 07/21/2025 10:19 AM EDT Goal Outcome Evaluation: Plan of Care Reviewed With: patient Progress: improving Outcome Evaluation: Pt with significant improvement in dizziness this session, however continues toexperience mild symptoms in L ear. Brunilda salas performed x3. Pt able to ambulate in hallway withSBA, no LOB and no N/V. Pt provided BPPV information handout. Rec home with OP vestibular PT at ca. Anticipated Discharge Disposition (PT): home with assist, home with outpatient therapy services * Rose Mary Pak OT - 07/21/2025 8:40 AM EDT Goal Outcome Evaluation: Plan of Care Reviewed With: patient Progress: no change Outcome Evaluation: Pt. presents below baseline with ADLs and functional mobility. Limited by vertigo symptoms and decreased activity tolerance. Skilled OT services warranted to promote return to PLOF. Recommend home with family at discharge. Anticipated Discharge Disposition (OT): home with assist * Lay Lorenz RN - 07/21/2025 6:43 AM EDT Problem: Adult Inpatient Plan of Care Goal: Plan of Care Review 07/21/2025 0642 by Lay Lorenz, RN Outcome: Progressing Flowsheets (Taken 07/21/2025 0502) Progress: improving Outcome Evaluation: Sysmptoms have started to improve Plan of Care Reviewed With: patient 07/21/2025 0502 by Lay Lorenz RN Outcome: Progressing Flowsheets (Taken 07/21/2025 0502) Progress: improving Outcome Evaluation: Sysmptoms have started to improve Plan of Care Reviewed With: patient Goal: Patient-Specific Goal (Individualized) 07/21/2025 0642 by Lay Lorenz RN Outcome: Progressing 07/21/2025 0502 by Lay Lorenz RN Outcome: Progressing Goal: Absence of Hospital-Acquired Illness or Injury 07/21/2025 0642 by Lay Lorenz RN Outcome: Progressing 07/21/2025 0502 by Lay Lorenz RN Outcome: Progressing Intervention: Identify and Manage Fall Risk Recent Flowsheet Documentation Taken 07/21/2025 0600 by Lay Lorenz RN Safety Promotion/Fall Prevention: activity supervised clutter free environment maintained lighting adjusted room organization consistent safety round/check completed Taken 07/21/2025 0400 by Lay Lorenz RN Safety Promotion/Fall Prevention: activity supervised clutter free environment maintained lighting adjusted Taken 07/21/2025 0200 by Lay Lorenz RN Safety Promotion/Fall Prevention: activity supervised Taken 07/21/2025 0000 by Lay Lorenz RN Safety Promotion/Fall Prevention: activity supervised Taken 07/20/2025 2200 by Lay Lorenz RN Safety Promotion/Fall Prevention: activity supervised clutter free environment maintained lighting adjusted safety round/check completed room organization consistent Taken 07/20/2025 2000 by Lay Lorenz RN Safety Promotion/Fall Prevention: activity supervised clutter free environment maintained lighting adjusted safety round/check completed room organization consistent Intervention: Prevent Skin Injury Recent Flowsheet Documentation Taken 07/21/2025 0600 by Lay Lorenz RN Body Position: position changed independently Skin Protection: incontinence pads utilized Taken 07/21/2025 0400 by Lay Lorenz RN Body Position: position changed independently Skin Protection: incontinence pads utilized Taken 07/21/2025 0200 by Lay Lorenz RN Body Position: position changed independently Skin Protection: incontinence pads utilized Taken 07/21/2025 0000 by Lay Lorenz RN Body Position: position changed independently Skin Protection: incontinence pads utilized Taken 07/20/2025 2200 by Lay Lorenz RN Body Position: position changed independently Skin Protection: incontinence pads utilized Taken 07/20/20251999 by Lay Lorenz RN Body Position: position changed independently Skin Protection: incontinence pads utilized Intervention: Prevent Infection Recent Flowsheet Documentation Taken 07/21/2025 0600 by Lay Lorenz RN Infection Prevention: environmental surveillance performed Taken 07/21/2025 0400 by Lay Lorenz RN Infection Prevention: environmental surveillance performed Taken 07/21/2025 0200 by Lay Lorenz RN Infection Prevention: environmental surveillance performed Taken 07/21/2025 0000 by Lay Lorenz RN Infection Prevention: environmental surveillance performed Taken 07/20/2025 2200 by Lay Lorenz RN Infection Prevention: environmental surveillance performed Taken 07/20/20251999 by Lay Lorenz RN Infection Prevention: environmental surveillance performed Goal: Optimal Comfort and Wellbeing 07/21/2025 0642 by Lay Lorenz RN Outcome: Progressing 07/21/2025 0502 by Lay Lorenz RN Outcome: Progressing Intervention: Provide Person-Centered Care Recent Flowsheet Documentation Taken 07/21/2025 0600 by Lay Lorenz RN Trust Relationship/Rapport: care explained Taken 07/21/2025 0400 by Lay Lorenz RN Trust Relationship/Rapport: care explained Taken 07/21/2025 0200 by Lay Lorenz RN Trust Relationship/Rapport: care explained questions answered Taken 07/21/2025 0000 by Lay Lorenz RN Trust Relationship/Rapport: care explained Taken 07/20/2025 2200 by Lay Lorenz RN Trust Relationship/Rapport: care explained Taken 07/20/20251999 by Lay Lorenz RN Trust Relationship/Rapport: care explained questions answered thoughts/feelings acknowledged reassurance provided Goal: Readiness for Transition of Care 07/21/2025 0642 by Lay Lorenz RN Outcome: Progressing 07/21/2025 0502 by Lay Lorenz RN Outcome: Progressing Problem: Pain Acute Goal: Optimal Pain Control and Function Outcome: Progressing Intervention: Prevent or Manage Pain Recent Flowsheet Documentation Taken 07/21/2025 0600 by Lay Lorenz RN Medication Review/Management: medications reviewed Problem: Fall Injury Risk Goal: Absence of Fall and Fall-Related Injury Outcome: Progressing Intervention: Identify and Manage Contributors Recent Flowsheet Documentation Taken 07/21/2025 0600 by Lay Lorenz RN Medication Review/Management: medications reviewed Intervention: Promote Injury-Free Environment Recent Flowsheet Documentation Taken 07/21/2025 0600 by aLy Lorenz RN Safety Promotion/Fall Prevention: activity supervised clutter free environment maintained lighting adjusted room organization consistent safety round/check completed Goal Outcome Evaluation: Plan of Care Reviewed With: patient Progress: improving Outcome Evaluation: Sysmptoms have started to improve * Lay Lorenz RN - 07/21/2025 5:05 AM EDT Problem: Adult Inpatient Plan of Care Goal: Plan of Care Review Outcome: Progressing Flowsheets (Taken 07/21/2025 0502) Progress: improving Outcome Evaluation: Sysmptoms have started to improve Plan of Care Reviewed With: patient Goal: Patient-Specific Goal (Individualized) Outcome: Progressing Goal: Absence of Hospital-Acquired Illness or Injury Outcome: Progressing Intervention: Identify and Manage Fall Risk Recent Flowsheet Documentation Taken 07/21/2025 0400 by Lay Lorenz RN Safety Promotion/Fall Prevention: activity supervised clutter free environment maintained lighting adjusted Taken 07/21/2025 0200 by Lay Lorenz RN Safety Promotion/Fall Prevention: activity supervised Taken 07/21/2025 0000 by Lay Lorenz RN Safety Promotion/Fall Prevention: activity supervised Taken 07/20/2025 2200 by Lay Lorenz RN Safety Promotion/Fall Prevention: activity supervised clutter free environment maintained lighting adjusted safety round/check completed room organization consistent Taken 07/20/2025 2000 by Lay Lorenz RN Safety Promotion/Fall Prevention: activity supervised clutter free environment maintained lighting adjusted safety round/check completed room organization consistent Intervention: Prevent Skin Injury Recent Flowsheet Documentation Taken 07/21/2025 0400 by Lay Lorenz RN Body Position: position changed independently Skin Protection: incontinence pads utilized Taken 07/21/2025 0200 by Lay Lorenz RN Body Position: position changed independently Skin Protection: incontinence pads utilized Taken 07/21/2025 0000 by Lay Lorenz RN Body Position: position changed independently Skin Protection: incontinence pads utilized Taken 07/20/2025 2200 by Lay Lorenz RN Body Position: position changed independently Skin Protection: incontinence pads utilized Taken 07/20/20251999 by Lay Lorenz RN Body Position: position changed independently Skin Protection: incontinence pads utilized Intervention: Prevent Infection Recent Flowsheet Documentation Taken 07/21/2025 0400 by Lay Lorenz RN Infection Prevention: environmental surveillance performed Taken 07/21/2025 0200 by Lay Lorenz RN Infection Prevention: environmental surveillance performed Taken 07/21/2025 0000 by Lay Lorenz RN Infection Prevention: environmental surveillance performed Taken 07/20/2025 220 by Lay Lorenz RN Infection Prevention: environmental surveillance performed Taken 07/20/20251999 by Lay Lorenz RN Infection Prevention: environmental surveillance performed Goal: Optimal Comfort and Wellbeing Outcome: Progressing Intervention: Provide Person-Centered Care Recent Flowsheet Documentation Taken 07/21/2025 0400 by Lay Lorenz RN Trust Relationship/Rapport: care explained Taken 07/21/2025 0200 by Lay Lorenz RN Trust Relationship/Rapport: care explained questions answered Taken 07/21/2025 0000 by Lay Lorenz RN Trust Relationship/Rapport: care explained Taken 07/20/2025 2200 by Lay Lorenz RN Trust Relationship/Rapport: care explained Taken 07/20/20251999 by Lay Lorenz RN Trust Relationship/Rapport: care explained questions answered thoughts/feelings acknowledged reassurance provided Goal: Readiness for Transition of Care Outcome: Progressing Goal Outcome Evaluation: Plan of Care Reviewed With: patient Progress: improving Outcome Evaluation: Sysmptoms have started to improve * Jumana Jacome, CCC-UNIFORM ATTENDANT - 07/20/2025 11:15 AM EDT Goal Outcome Evaluation: Plan of Care Reviewed With: patient, family Anticipated Discharge Disposition (UNIFORM ATTENDANT): No further UNIFORM ATTENDANT services warranted UNIFORM ATTENDANT Diagnosis: functional speech/language skills, functional cognitive- linguistic skills (07/20/25 1040) * Jasmina Carroll PT - 07/20/2025 11:10 AM EDT Goal Outcome Evaluation: Plan of Care Reviewed With: patient, spouse Progress: improving Outcome Evaluation: PT PRESENTS WITH EVOLVING SYMPTOMS TO INCLUDE IMPAIRED BALANCE, NAUSEA, VOMITING, DIZZINESS AND DECLINE IN FUNCTIONAL MOBILITY. IMAGING R/O CVA. MD REQUESTED MAAME LALA PIKE/BRUNILDA MANEUVER TO IMPROVE SYMPTOMS. COMPLETED 2 REPS WITH SUBJECTIVE REPORT OF DECREASE IN VERTIGO 50% FOR APPROX 10 MINUTES. AMBULATED TO BATHROOM FOR TOILETING WITH CGA BUT REQUIRED MIN ASSIST TO AMBULATE BACK TO RECLINER DUE TO ONSET OF INCREASED VERTIGO, NAUSEA AND VOMITING WHILE ON COMMODE. WILL CONTINUE WITH VESTIBULAR REHAB WHILE INPT AND PROGRESS MOBILITY TOLERATED. RECOMMEND HOME WITH AND OP VESTIBULAR REHAB AT D/C. * Lay Lorenz RN - 07/20/2025 7:30 AM EDT Problem: Adult Inpatient Plan of Care Goal: Plan of Care Review Outcome: Progressing Flowsheets (Taken 07/20/2025 0730) Progress: no change Plan of Care Reviewed With: patient Goal: Patient-Specific Goal (Individualized) Outcome: Progressing Goal: Absence of Hospital-Acquired Illness or Injury Outcome: Progressing Intervention: Identify and Manage Fall Risk Recent Flowsheet Documentation Taken 07/20/2025 0600 by Lay Lorenz RN Safety Promotion/Fall Prevention: activity supervised Taken 07/20/2025 0400 by Lay Lorenz RN Safety Promotion/Fall Prevention: activity supervised Taken 07/20/2025 002 by Lay Lorenz RN Safety Promotion/Fall Prevention: activity supervised lighting adjusted clutter free environment maintained safety round/check completed room organization consistent Intervention: Prevent Skin Injury Recent Flowsheet Documentation Taken 07/20/2025 0600 by Lay Lorenz RN Body Position: position changed independently Skin Protection: incontinence pads utilized Taken 07/20/2025 0400 by Lay Lorenz RN Body Position: position changed independently Skin Protection: incontinence pads utilized Taken 07/20/2025 002 by Lay Lorenz RN Body Position: position changed independently Skin Protection: incontinence pads utilized Intervention: Prevent Infection Recent Flowsheet Documentation Taken 07/20/2025 0600 by Lay Lorenz RN Infection Prevention: environmental surveillance performed Taken 07/20/2025 040 by Lay Lorenz RN Infection Prevention: environmental surveillance performed Taken 07/20/202527 by Lay Lorenz RN Infection Prevention: environmental surveillance performed Goal: Optimal Comfort and Wellbeing Outcome: Progressing Intervention: Provide Person-Centered Care Recent Flowsheet Documentation Taken 07/20/2025 0600 by Lay Lorenz RN Trust Relationship/Rapport: care explained Taken 07/20/2025 0400 by Lay Lorenz RN Trust Relationship/Rapport: care explained questions answered thoughts/feelings acknowledged reassurance provided Taken 07/20/202527 by Lay Lorenz RN Trust Relationship/Rapport: care explained questions encouraged reassurance provided thoughts/feelings acknowledged Goal: Readiness for Transition of Care Outcome: Progressing Intervention: Mutually Develop Transition Plan Recent Flowsheet Documentation Taken 07/20/2025 0114 by Lay Lorenz RN Transportation Anticipated: family or friend will provide Patient/Family Anticipated Services at Transition: none Patient/Family Anticipates Transition to: home with family Taken 07/20/2025 011 by Lay Lorenz RN Equipment Currently Used at Home: none Goal Outcome Evaluation: Plan of Care Reviewed With: patient Progress: no change documented in this encounter Miscellaneous Notes * Case Management/Social Work - Allyssa Horan MSW - 07/21/2025 11:45 AM EDT Discharge Planning Assessment [facility] Patient Name: Brian Swanson Today's Date: 07/21/2025 Admit Date: 07/20/2025 Plan: home with outpatient vestibular therapy Discharge Needs Assessment Row Name 07/21/25 1136 Living Environment People in Home spouse Current Living Arrangements home Potentially Unsafe Housing Conditions none Primary Care Provided by self Provides Primary Care For no one Family Caregiver if Needed spouse Quality of Family Relationships supportive Able to Return to Prior Arrangements yes Resource/Environmental Concerns Resource/Environmental Concerns none Transportation Concerns none Transition Planning Patient/Family Anticipates Transition to home with family Patient/Family Anticipated Services at Transition outpatient care Transportation Anticipated family or friend will provide Discharge Needs Assessment Readmission Within the Last 30 Days no previous admission in last 30 days Equipment Currently Used at Home none Concerns to be Addressed no discharge needs identified Equipment Needed After Discharge none Outpatient/Agency/Support Group Needs outpatient therapy Discharge Plan Row Name 07/21/25 1144 Plan Plan Comments Pt had also reported that his PCP is Blayne Brito in [place]. Row Name 07/21/25 1139 Plan Plan home with outpatient vestibular therapy Patient/Family in Agreement with Plan yes Plan Comments FRONT DESK COORDINATOR spoke with pt at bedside. Pt lives in [facility] with his . Pt is independent in ADL's and IADL's and does not use any medical equipment. Therapy recs outpatient vestibulartherapy. Pt reports he is agreeable and if there isn't a place that does it in [place], then he can do [place]. FRONT DESK COORDINATOR called and confirmed [facility] in [place] does vestibular therapy. FRONT DESK COORDINATOR got pt anappointment for next week and this appointment was placed in follow up appointments in [facility]. FRONT DESK COORDINATOR also faxed the referral to [facility] in [place]. FRONT DESK COORDINATOR also provided pt with the order at bedside in case he needs as well. Pt plan is home with outpatient vestibular therapy and to transport. Final Discharge Disposition Code 01 - home or self-care Continued Care and Services - Admitted Since 07/20/2025 No active coordination exists. Expected Discharge Date and Time Expected Discharge Date Expected Discharge Time Jul 21, 2025 Demographic Summary Row Name 07/21/25 1136 General Information Reason for Consult discharge planning Functional Status Row Name 07/21/25 1136 Functional Status, IADL Medications independent Meal Preparation independent Housekeeping independent Laundry independent Shopping independent Psychosocial No documentation. Abuse/Neglect No documentation. Legal No documentation. Substance Abuse No documentation. Patient Forms No documentation. CONSUELO Do * Therapy Treatment Note - Madina Winston PT - 07/21/2025 10:19 AM EDT Images from the original note were not included. Patient Name: Brian Swanson : 1975 Today's Date: 07/21/2025 Admit Date: 07/20/2025 Visit Dx: No diagnosis found. Patient Active Problem List Diagnosis Dizziness History reviewed. No pertinent past medical history. History reviewed. No pertinent surgical history. General Information Row Name 07/21/25 1048 Physical Therapy Time and Intention Document Type therapy note (daily note) -KR Mode of Treatment physical therapy;individual therapy -KR Row Name 07/21/25 1048 General Information Patient Profile Reviewed yes -KR Existing Precautions/Restrictions fall;other (see comments) BPPV -KR Barriers to Rehab none identified -KR Row Name 07/21/25 1048 Cognition Orientation Status (Cognition) oriented x 3 -KR Row Name 07/21/25 1048 Safety Issues/Impairments Affecting Functional Mobility Impairments Affecting Function (Mobility) balance -KR Comment, Safety Issues/Impairments (Mobility) BPPV -KR User Chavez (r) = Recorded By, (t) = Taken By, (c) = Cosigned By Initials Name Provider Type KR Madina Winston PT Physical Therapist Mobility Row Name 07/21/25 1048 Bed Mobility Bed Mobility rolling right;sidelying-sit;sit-supine -KR Rolling Right [place] (Bed Mobility) independent -KR Sit-Supine [place] (Bed Mobility) independent -KR Sidelying-Sit [place] (Bed Mobility) independent -KR Comment, (Bed Mobility) Fifield-Hallpike performed and pt continues to experience mild dizziness with head turned LChin salas performed x3. -KR Row Name 07/21/25 1048 Sit-Stand Transfer Sit-Stand [place] (Transfers) supervision -KR Row Name 07/21/25 1048 Gait/Stairs (Locomotion) [place] Level (Gait) standby assist -KR Distance in Feet (Gait) 120 120 x 2 -KR Deviations/Abnormal Patterns (Gait) base of support, wide;gait speed decreased;virgen decreased -KR Comment, (Gait/Stairs) pt continues to demo hesitancy with ambulation, wide JEFFERY d/t minor dizziness. -KR User Chavez (r) = Recorded By, (t) = Taken By, (c) = Cosigned By Initials Name Provider Type Madina Bañuelos PT Physical Therapist Obj/Interventions Row Name 07/21/25 1050 Balance Balance Assessment sitting static balance;sitting dynamic balance;standing static balance;standing dynamic balance -KR Static Sitting Balance independent -KR Dynamic Sitting Balance independent -KR Position, Sitting Balance unsupported;sitting edge of bed;sitting in chair -KR Static Standing Balance independent -KR Dynamic Standing Balance standby assist -KR Position/Device Used, Standing Balance unsupported -KR Balance Interventions sitting;standing;sit to stand;static;dynamic -KR User Chavez (r) = Recorded By, (t) = Taken By, (c) = Cosigned By Initials Name Provider Type Madina Bañuelos PT Physical Therapist Goals/Plan No documentation. Clinical Impression Row Name 07/21/25 1050 Pain Pretreatment Pain Rating 0/10 - no pain -KR Posttreatment Pain Rating 0/10 - no pain -KR Row Name 07/21/25 1050 Plan of Care Review Plan of Care Reviewed With patient -KR Progress improving -KR Outcome Evaluation Pt with significant improvement in dizziness this session, however continues to experience mild symptoms in L ear. Brunilda salas performed x3. Pt able to ambulate in hallway with SBA, no LOB and no N/V. Pt provided BPPV information handout. Rec home with OP vestibular PT at ca. -KR Row Name 07/21/25 1050 Vital Signs Pre Patient Position Sitting -KR Intra Patient Position Standing -KR Post Patient Position Sitting -KR Row Name 07/21/25 1050 Positioning and Restraints Pre-Treatment Position sitting in chair/recliner -KR Post Treatment Position chair -KR In Chair notified nsg;reclined;call light within reach;encouraged to call for assist;exit alarm on;waffle cushion;legs elevated -KR User Chavez (r) = Recorded By, (t) = Taken By, (c) = Cosigned By Initials Name Provider Type Madina Bañuelos, MOLLY Physical Therapist Outcome Measures Row Name 07/21/25 1056 How much help from another person do you currently need... Turning from your back to your side while in flat bed without using bedrails? 4 -KR Moving from lying on back to sitting on the side of a flat bed without bedrails? 4 -KR Moving to and from a bed to a chair (including a wheelchair)? 4 -KR Standing up from a chair using your arms (e.g., wheelchair, bedside chair)? 4 -KR Climbing 3-5 steps with a railing? 3 -KR To walk in hospital room? 3 -KR AM-PAC 6 Clicks Score (PT) 22 -KR Highest Level of Mobility Goal Walk 25 Feet or More-7 -KR Row Name 07/21/25 1056 07/21/25 1051 Functional Assessment Outcome Measure Options AM-PAC 6 Clicks Basic Mobility (PT) -KR AM-PAC 6 Clicks Daily Activity (OT)-LC User Chavez (r) = Recorded By, (t) = Taken By, (c) = Cosigned By Initials Name Provider Type Roes Mary Coleman OT Occupational Therapist Madina Bañuelos, PT Physical Therapist Physical Therapy Education Title: PT OT UNIFORM ATTENDANT Therapies (In Progress) Topic: Physical Therapy (Done) Point: Mobility training (Done) Learning Progress Summary Patient Acceptance, E,H, VU by DREA at 07/21/2025 1056 Acceptance, E, VU,NR by CD at 07/20/2025 1341 Comment: VESTIBULAR REHAB WITH MAAME HALLPIKE AND BRUNILDA, BENEFITS OF OOB ACTIVITY, SAFETY WITH MOBILITY, PROGRESSION OF POC, D/C PLANNING, Point: Home exercise program (Done) Learning Progress Summary Patient Acceptance, E,H, VU by DREA at 07/21/2025 1056 Acceptance, E, VU,NR by CD at 07/20/2025 1341 Comment: VESTIBULAR REHAB WITH MAAME HALLPIKE AND BRUNILDA, BENEFITS OF OOB ACTIVITY, SAFETY WITH MOBILITY, PROGRESSION OF POC, D/C PLANNING, Point: Body mechanics (Done) Learning Progress Summary Patient Acceptance, E,H, VU by KR at 07/21/2025 1056 Acceptance, E, VU,NR by CD at 07/20/2025 1341 Comment: VESTIBULAR REHAB WITH MAAME HALLPIKE AND BRUNILDA, BENEFITS OF OOB ACTIVITY, SAFETY WITH MOBILITY, PROGRESSION OF POC, D/C PLANNING, Point: Precautions (Done) Learning Progress Summary Patient Acceptance, E,H, VU by KR at 07/21/2025 1056 Acceptance, E, VU,NR by CD at 07/20/2025 1341 Comment: VESTIBULAR REHAB WITH MAAME HALLPIKE AND BRUNILDA, BENEFITS OF OOB ACTIVITY, SAFETY WITH MOBILITY, PROGRESSION OF POC, D/C PLANNING, User Chavez Initials Effective Dates Name Provider Type Discipline CD 12/09/22 - Jasmina Carroll PT Physical Therapist PT DREA 11/04/22 - Madina Winston PT Physical Therapist PT PT Recommendation and Plan Recommended discharge disposition is based on the functional assessment performed by PT/OT/Speech therapy (as applicable) and may not reflect the medical necessity determined by your provider or services covered by an individual patient's insurance plan or patient resource. Progress: improving Outcome Evaluation: Pt with significant improvement in dizziness this session, however continues toexperience mild symptoms in L ear. Brunilda salas performed x3. Pt able to ambulate in hallway withSBA, no LOB and no N/V. Pt provided BPPV information handout. Rec home with OP vestibular PT at ca. Time Calculation: PT Charges Row Name 07/21/25 1057 Time Calculation Start Time 1019 -KR PT Received On 07/21/25 -KR Timed Charges 49016 - PT Therapeutic Activity Minutes 10 -KR Untimed Charges PT Canalith Repositioning 13 -KR Total Minutes Timed Charges Total Minutes 10 -KR Untimed Charges Total Minutes 13 -KR Total Minutes 23 -KR User Chavez (r) = Recorded By, (t) = Taken By, (c) = Cosigned By Initials Name Provider Type Madina Bañuelos PT Physical Therapist Therapy Charges for Today Code Description Service Date Service Provider Modifiers Qty 16836369466 HC PT THERAPEUTIC ACT EA 15 MIN 07/21/2025 Madina Winston PT GP 1 69388588265 HC PT CANALITH REPOSITIONING PER DAY 07/21/2025 Madina Winston, PT GP 1 PT G-Codes Outcome Measure Options: AM-PAC 6 Clicks Basic Mobility (PT) AM-PAC 6 Clicks Score (PT): 22 AM-PAC 6 Clicks Score (OT): 20 PT Discharge Summary Anticipated Discharge Disposition (PT): home with assist, home with outpatient therapy services Madina Winston, MOLLY 07/21/2025 * Therapy Evaluation - Rose Mary Pak, OT - 07/21/2025 8:40 AM EDT Images from the original note were not included. Patient Name: Brian Swanson : 1975 Today's Date: 07/21/2025 Admit Date: 07/20/2025 Visit Dx: No diagnosis found. Patient Active Problem List Diagnosis Dizziness History reviewed. No pertinent past medical history. History reviewed. No pertinent surgical history. General Information Row Name 07/21/25 0959 OT Time and Intention Document Type evaluation - Mode of Treatment occupational therapy - Row Name 07/21/25 0959 General Information Patient Profile Reviewed yes - Prior Level of Function independent:;all household mobility;transfer;ADL's - Existing Precautions/Restrictions fall;other (see comments) Vertigo - Barriers to Rehab none identified -LC Row Name 07/21/25 0959 Living Environment Current Living Arrangements home - People in Home spouse -LC Row Name 07/21/25 0959 Home Main Entrance Number of Stairs, Main Entrance none -LC Row Name 07/21/25 0959 Stairs Within Home, Primary Number of Stairs, Within Home, Primary none -LC Row Name 07/21/25 0959 Cognition Orientation Status (Cognition) oriented x 3 -LC Row Name 07/21/2559 Safety Issues/Impairments Affecting Functional Mobility Impairments Affecting Function (Mobility) balance;endurance/activity tolerance;postural/trunk control - User Chavez (r) = Recorded By, (t) = Taken By, (c) = Cosigned By Initials Name Provider Type Rose Mary Pak, OT Occupational Therapist Mobility/ADL's Row Name 07/21/25 1003 Bed Mobility Bed Mobility scooting/bridging;supine-sit - Scooting/Bridging [place] (Bed Mobility) modified independence - Supine-Sit [place] (Bed Mobility) modified independence - Assistive Device (Bed Mobility) bed rails;head of bed elevated - Comment, (Bed Mobility) Demonstrates good sequencing, reports mild dizziness, improvement from yesterday -[facility] Name 07/21/25 1003 Transfers Transfers sit-stand transfer;bed-chair transfer - Comment, (Transfers) VC's for hand placement and sequencing. -[facility] Name 07/21/25 1003 Bed-Chair Transfer Bed-Chair [place] (Transfers) contact guard;verbal cues -[facility] Name 07/21/25 1003 Sit-Stand Transfer Sit-Stand [place] (Transfers) contact guard;verbal cues -[facility] 07/21/25 1003 Functional Mobility Functional Mobility- Ind. Level contact guard assist;verbal cues required - Functional Mobility-Distance (Feet) 30 - Functional Mobility- Comment No LOB, CGA for safety -[facility] 07/21/25 100 Activities of Daily Living BADL Assessment/Intervention toileting;grooming -[facility] 07/21/25 1003 Hygiene Care Oral Care teeth brushed - regular toothbrush -[facility] Name 07/21/25 1003 Toileting Assessment/Training [place] Level (Toileting) adjust/manage clothing;perform perineal hygiene;standby assist - Assistive Devices (Toileting) commode;grab bar/safety frame - Position (Toileting) supported standing -[facility] 07/21/25 1003 Grooming Assessment/Training [place] Level (Grooming) wash face, hands;oral care regimen;standby assist - Position (Grooming) unsupported standing;sink side - User Chavez (r) = Recorded By, (t) = Taken By, (c) = Cosigned By Initials Name Provider Type Rose Mary Pak OT Occupational Therapist Obj/Interventions [facility] Name 07/21/25 1007 Sensory Assessment (Somatosensory) Sensory Assessment (Somatosensory) UE sensation intact -[facility] Name 07/21/25 1007 Vision Assessment/Intervention Visual Impairment/Limitations WFL -[facility] Name 07/21/25 1007 Range of Motion Comprehensive General [facility] 07/[facility]/25 1007 Strength Comprehensive (MMT) General Manual Muscle Testing (MMT) Assessment upper extremity strength deficits identified -[facility] Name 07/21/25 1007 Upper Extremity (Manual Muscle Testing) Upper Extremity: Manual Muscle Testing (MMT) left UE strength is WFL;right UE strength is WFL -[facility] Name 07/21/25 1007 Motor Skills Motor Skills functional endurance -[facility] Name 07/21/25 1007 Balance Balance Assessment sitting static balance;sitting dynamic balance;standing static balance;standing dynamic balance - Static Sitting Balance supervision;modified independence - Dynamic Sitting Balance modified independence - Position, Sitting Balance unsupported;sitting edge of bed - Static Standing Balance contact guard - Dynamic Standing Balance contact guard - Position/Device Used, Standing Balance supported - Balance Interventions sitting;standing;sit to stand;supported;occupation based/functional task;weight shifting activity - Comment, Balance mild dizziness, CGA for safety - User Chavez (r) = Recorded By, (t) = Taken By, (c) = Cosigned By Initials Name Provider Type Rose Mary Pak OT Occupational Therapist Goals/Plan [facility] Name 07/21/25 1046 Transfer Goal 1 (OT) Activity/Assistive Device (Transfer Goal 1, OT) ifq-mv-rdpoi/nurkq-sd-icy;rjn-vx-zbawf/sftbk-bo-dra;toilet - [place] Level/Cues Needed (Transfer Goal 1, OT) supervision required - Time Frame (Transfer Goal 1, OT) prison goal (LTG);10 days - Progress/Outcome (Transfer Goal 1, OT) goal ongoing -[facility] 07/21/25 1046 Dressing Goal 1 (OT) Activity/Device (Dressing Goal 1, OT) lower body dressing - [place]/Cues Needed (Dressing Goal 1, OT) supervision required - Time Frame (Dressing Goal 1, OT) short term goal (STG);5 days - Progress/Outcome (Dressing Goal 1, OT) goal ongoing -[facility] Name 07/21/25 1046 Toileting Goal 1 (OT) Activity/Device (Toileting Goal 1, OT) adjust/manage clothing;perform perineal hygiene;commode;grabbar/safety frame - [place] Level/Cues Needed (Toileting Goal 1, OT) modified independence - Time Frame (Toileting Goal 1, OT) oil heaterman goal (LTG);10 days - Progress/Outcome (Toileting Goal 1, OT) goal ongoing -[facility] Name 07/21/25 1046 Therapy Assessment/Plan (OT) Planned Therapy Interventions (OT) activity tolerance training;adaptive equipment training;BADL retraining;functional balance retraining;occupation/activity based interventions;patient/caregiver educa tion/training;strengthening exercise;transfer/mobility retraining - User Chavez (r) = Recorded By, (t) = Taken By, (c) = Cosigned By Initials Name Provider Type Rose Mary Coleman, NEVIN Occupational Therapist Clinical Impression [facility] Name 07/21/25 1009 Pain Assessment Pretreatment Pain Rating 0/10 - no pain -LC Posttreatment Pain Rating 0/10 - no pain -LC Pain Management Interventions -- -[facility] 07/21/25 100 Plan of Care Review Plan of Care Reviewed With patient -LC Progress no change - Outcome Evaluation Pt. presents below baseline with ADLs and functional mobility. Limited by vertigo symptoms and decreased activity tolerance. Skilled OT services warranted to promote return to OF. Recommend home with family at discharge. -[facility] Name 07/21/25 1009 Therapy Assessment/Plan (OT) Patient/Family Therapy Goal Statement (OT) To take care of self -LC Therapy Frequency (OT) daily - Predicted Duration of Therapy Intervention (OT) 3 days -[facility] 07/21/25 1009 Therapy Plan Review/Discharge Plan (OT) Anticipated Discharge Disposition (OT) home with assist -[facility] 07/21/25 1009 Vital Signs Pre Systolic BP Rehab 121 -LC Pre Treatment Diastolic BP 82 -LC Post Systolic BP Rehab 151 -LC Post Treatment Diastolic BP 91 -LC Pre Patient Position Supine -LC Post Patient Position Sitting -[facility] Name 07/21/25 1009 Positioning and Restraints Pre-Treatment Position in bed -LC Post Treatment Position chair -LC In Chair notified nsg;reclined;call light within reach;encouraged to call for assist;exit alarm on;waffle cushion;legs elevated - User Chavez (r) = Recorded By, (t) = Taken By, (c) = Cosigned By Initials Name Provider Type Rose Mary Coleman OT Occupational Therapist Outcome Measures Row Name 07/21/25 1051 How much help from another is currently needed... Putting on and taking off regular lower body clothing? 3 -LC Bathing (including washing, rinsing, and drying) 3 -LC Toileting (which includes using toilet bed michel or urinal) 3 -LC Putting on and taking off regular upper body clothing 4 -LC Taking care of personal grooming (such as brushing teeth) 3 -LC Eating meals 4 -LC AM-PAC 6 Clicks Score (OT) 20 -LC Row Name 07/21/25 1056 How much help from another person do you currently need... Turning from your back to your side while in flat bed without using bedrails? 4 -KR Moving from lying on back to sitting on the side of a flat bed without bedrails? 4 -KR Moving to and from a bed to a chair (including a wheelchair)? 4 -KR Standing up from a chair using your arms (e.g., wheelchair, bedside chair)? 4 -KR Climbing 3-5 steps with a railing? 3 -KR To walk in hospital room? 3 -KR AM-PAC 6 Clicks Score (PT) 22 -KR Highest Level of Mobility Goal Walk 25 Feet or More-7 -KR Row Name 07/21/25 1056 07/21/25 1051 Functional Assessment Outcome Measure Options AM-PAC 6 Clicks Basic Mobility (PT) -KR AM-PAC 6 Clicks Daily Activity (OT)- User Chavez (r) = Recorded By, (t) = Taken By, (c) = Cosigned By Initials Name Provider Type Rose Mary Pak OT Occupational Therapist Madina Bañuelos, PT Physical Therapist Occupational Therapy Education Title: PT OT UNIFORM ATTENDANT Therapies (In Progress) Topic: Occupational Therapy (In Progress) Point: ADL training (In Progress) Learning Progress Summary Patient Acceptance, E, NR by at 07/21/2025 0840 Point: Precautions (In Progress) Learning Progress Summary Patient Acceptance, E, NR by at 07/21/2025 0840 Point: Body mechanics (In Progress) Learning Progress Summary Patient Acceptance, E, NR by at 07/21/2025 0840 User Chavez Initials Effective Dates Name Provider Type Discipline 04/21/21 - Rose Mary Pak OT Occupational Therapist OT OT Recommendation and Plan Recommended discharge disposition is based on the functional assessment performed by PT/OT/Speech therapy (as applicable) and may not reflect the medical necessity determined by your provider or services covered by an individual patient's insurance plan or patient resource. Planned Therapy Interventions (OT): activity tolerance training, adaptive equipment training, BADL retraining, functional balance retraining, occupation/activity based interventions, patient/caregiver education/training, strengthening exercise, transfer/mobility retraining Therapy Frequency (OT): daily Plan of Care Review Plan of Care Reviewed With: patient Progress: no change Outcome Evaluation: Pt. presents below baseline with ADLs and functional mobility. Limited by vertigo symptoms and decreased activity tolerance. Skilled OT services warranted to promote return to PLOF. Recommend home with family at discharge. Time Calculation: Evaluation Complexity (OT) Review Occupational Profile/Medical/Therapy History Complexity: brief/low complexity Assessment, Occupational Performance/Identification of Deficit Complexity: 1-3 performance deficits Clinical Decision Making Complexity (OT): problem focused assessment/low complexity Overall Complexity of Evaluation (OT): low complexity Time Calculation- OT Row Name 07/21/25 1054 Time Calculation- OT OT Start Time 0840 -LC OT Received On 07/21/25 - OT Goal Re-Cert Due Date 07/31/25 - Timed Charges 45238 - OT Self Care/Mgmt Minutes -- -LC Untimed Charges OT Eval/Re-eval Minutes 50 -LC Total Minutes Timed Charges Total Minutes -- -LC Untimed Charges Total Minutes 50 -LC Total Minutes 50 -LC User Chavez (r) = Recorded By, (t) = Taken By, (c) = Cosigned By Initials Name Provider Type LC Rose Mary Pak OT Occupational Therapist Therapy Charges for Today Code Description Service Date Service Provider Modifiers Qty [id number] OT EVAL LOW COMPLEXITY 4 07/21/2025 Rose Mary Pak OT GO 1 Rose Mary Pak OT 07/21/2025 * Therapy Evaluation - Jasmina Carroll, PT - 07/20/2025 11:10 AM EDT Images from the original note were not included. Patient Name: Brian Swanson : 1975 Today's Date: 07/20/2025 Admit Date: 07/20/2025 Visit Dx: Visit Diagnosis No diagnosis found. Problem List Patient Active Problem List Diagnosis Dizziness Medical History History reviewed. No pertinent past medical history. Surgical History History reviewed. No pertinent surgical history. General Information Row Name 07/20/25 131 Physical Therapy Time and Intention Document Type evaluation -CD Mode of Treatment physical therapy -CD Row Name 07/20/25 131 General Information Patient Profile Reviewed yes -CD Prior Level of Function independent:;all household mobility;community mobility;gait;transfer;driving;bed mobility;ADL's;work;using stairs -CD Existing Precautions/Restrictions fall;other (see comments) vertigo, nausea and vomiting. -CD Barriers to Rehab none identified -CD Row Name 07/20/25 131 Living Environment Current Living Arrangements home -CD People in Home spouse;other (see comments) DTR PRN -CD Row Name 07/20/25 131 Cognition Orientation Status (Cognition) oriented x 3 -CD Row Name 07/20/25 131 Safety Issues/Impairments Affecting Functional Mobility Impairments Affecting Function (Mobility) balance;endurance/activity tolerance;postural/trunk control -CD Comment, Safety Issues/Impairments (Mobility) IMAGING RESULTS R/O CVA . CONTINUES WITH VERTIGO. DR LARY CRAIG REQUESTING MAAME LALA PIKE AND BRUNILDA. -CD User Chavez (r) = Recorded By, (t) = Taken By, (c) = Cosigned By Initials Name Provider Type CD Jasmina Carroll, PT Physical Therapist Mobility Row Name 07/20/25 1325 Bed Mobility Bed Mobility rolling left;rolling right;sidelying-sit -CD Rolling Left [place] (Bed Mobility) independent -CD Rolling Right [place] (Bed Mobility) independent -CD Sidelying-Sit [place] (Bed Mobility) independent -CD Comment, (Bed Mobility) ROLLED FOR PERFORMING MAAME LALA PIKE/BRUNILDA -CD Row Name 07/20/25 1327 Transfers Comment, (Transfers) STS FROM EOB AND COMMODE WITH CGA. -CD Row Name 07/20/25 132 Sit-Stand Transfer Sit-Stand [place] (Transfers) contact guard -CD Assistive Device (Sit-Stand Transfers) -- GAIT BELT. -CD Row Name 07/20/25 1324 Gait/Stairs (Locomotion) [place] Level (Gait) contact guard;minimum assist (75% patient effort) -CD Distance in Feet (Gait) 6 6+6 -CD Deviations/Abnormal Patterns (Gait) base of support, wide;gait speed decreased;virgen decreased -CD Bilateral Gait Deviations forward flexed posture -CD Comment, (Gait/Stairs) CGA TO BATHROOM AFTER BRUNILDA MANUEVER AND REPORTS OF VERTIGO 50% IMPROVED. PTREPORTED ONSET OF INCREASED SYMPTOMS INCLUDING N&V WHILE TOILETING AND REQUIRED MIN ASSIST VIA GAIT BELT AND R [facility] User Chavez (r) = Recorded By, (t) = Taken By, (c) = Cosigned By Initials Name Provider Type CD Jasmina Carroll PT Physical Therapist Obj/Interventions Row Name 07/20/25 1329 Range of Motion Comprehensive General Range of Motion bilateral lower extremity ROM WFL -CD Row Name 07/20/25 1329 Strength Comprehensive (MMT) General Manual Muscle Testing (MMT) Assessment no strength deficits identified -CD Comment, General Manual Muscle Testing (MMT) Assessment B LE GROSSLY 5/5 AND SYMMETRICAL. -CD Row Name 07/20/25 1329 Balance Balance Assessment sitting static balance;sitting dynamic balance;standing static balance;standing dynamic balance -CD Static Sitting Balance independent -CD Dynamic Sitting Balance independent -CD Position, Sitting Balance unsupported;sitting edge of bed ON COMMODE. -CD Static Standing Balance contact guard -CD Dynamic Standing Balance minimal assist -CD Position/Device Used, Standing Balance supported R UE SUPPORT AND GAIT BELT. -CD Balance Interventions sitting;standing -CD Comment, Balance PT WITH [employer]STAGMUS TO THE L WITH MAAME HALLPIKE. PERFORMED BRUNILDA X 2 WITH SUBJECTIVE REPORT OF VERTIGO IMPROVED 50% X APPROX 10 MINUTES. DIZZINESS/N&V RETURNED AFTER AMBULATION TO BATHROOM FOR TOILETING. -CD Row Name 07/20/25 1329 Sensory Assessment (Somatosensory) Sensory Assessment (Somatosensory) LE sensation intact -CD User Chavez (r) = Recorded By, (t) = Taken By, (c) = Cosigned By Initials Name Provider Type CD Jasmina Carroll PT Physical Therapist Goals/Plan Row Name 07/20/25 1336 Bed Mobility Goal 1 (PT) Activity/Assistive Device (Bed Mobility Goal 1, PT) bed mobility activities, all -CD [place] Level/Cues Needed (Bed Mobility Goal 1, PT) independent -CD Time Frame (Bed Mobility Goal 1, PT) short term goal (STG);5 days -CD Row Name 07/20/25 1338 Transfer Goal 1 (PT) Activity/Assistive Device (Transfer Goal 1, PT) juy-oo-qhvkc/upooz-zr-mfk;hlf-we-bnasa/txfpe-bm-vao-CD [place] Level/Cues Needed (Transfer Goal 1, PT) independent -CD Time Frame (Transfer Goal 1, PT) prison goal (LTG);10 days -CD Row Name 07/20/25 1336 Gait Training Goal 1 (PT) Activity/Assistive Device (Gait Training Goal 1, PT) gait (walking locomotion) -CD [place] Level (Gait Training Goal 1, PT) independent -CD Distance (Gait Training Goal 1, PT) 600 -CD Time Frame (Gait Training Goal 1, PT) oil heaterman goal (LTG);10 days -CD Row Name 07/20/25 7155 Therapy Assessment/Plan (PT) Planned Therapy Interventions (PT) balance training;gait training;vestibular therapy;home exercise program;patient/family education -CD User Chavez (r) = Recorded By, (t) = Taken By, (c) = Cosigned By Initials Name Provider Type CD Jasmina Carroll, PT Physical Therapist Clinical Impression Row Name 07/20/25 1845 Pain Pretreatment Pain Rating 0/10 - no pain -CD Posttreatment Pain Rating 0/10 - no pain -CD Row Name 07/20/25 6941 Plan of Care Review Plan of Care Reviewed With patient;spouse -CD Progress improving -CD Outcome Evaluation PT PRESENTS WITH EVOLVING SYMPTOMS TO INCLUDE IMPAIRED BALANCE, NAUSEA, VOMITING, DIZZINESS AND DECLINE IN FUNCTIONAL MOBILITY. IMAGING R/O CVA. REQUESTED MAAME LALA PIKE/BRUNILDA MANEUVER TO IMPROVE SYMPTOMS. COMPLETED 2 REPS WITH SUBJECTIVE REPORT OF DECREASE IN VERTIGO 50% FOR APPROX 10 MINUTES. AMBULATED TO BATHROOM FOR TOILETING WITH CGA BUT REQUIRED MIN ASSIST TO AMBULATE BACK TO RECLINER DUE TO ONSET OF INCREASED VERTIGO, NAUSEA AND VOMITING WHILE ON COMMODE. WILL CONTINUE WITH VESTIBULAR REHAB WHILE INPT AND PROGRESS MOBILITY TOLERATED. RECOMMEND HOME WITH ANDOP VESTIBULAR REHAB AT D/C. -CD Row Name 07/20/25 6526 Therapy Assessment/Plan (PT) Patient/Family Therapy Goals Statement (PT) TO RESOLVE DIZZINESS. -CD Rehab Potential (PT) good -CD Criteria for Skilled Interventions Met (PT) yes;meets criteria;skilled treatment is necessary -CD Therapy Frequency (PT) daily -CD Predicted Duration of Therapy Intervention (PT) 10 DAYS -CD Row Name 07/20/25 1332 Vital Signs Pre Systolic BP Rehab 134 -CD Pre Treatment Diastolic BP 87 -CD Post Systolic BP Rehab 137 -CD Post Treatment Diastolic BP 89 -CD Posttreatment Heart Rate (beats/min) 77 -CD Pre SpO2 (%) 96 -CD O2 Delivery Pre Treatment room air -CD O2 Delivery Intra Treatment room air -CD Post SpO2 (%) 96 -CD O2 Delivery Post Treatment room air -CD Pre Patient Position Supine -CD Intra Patient Position Standing -CD Post Patient Position Sitting -CD Row Name 07/20/25 1332 Positioning and Restraints Pre-Treatment Position in bed -CD Post Treatment Position chair -CD In Chair reclined;call light within reach;encouraged to call for assist;notified nsg NSG NOTIFIED EXIT ALARM NEEDS BLACK BOX TO ACTIVATE. PT AGREES TO CALL OUT FOR ASSISTANCE. PRESENT. -CD User Chavez (r) = Recorded By, (t) = Taken By, (c) = Cosigned By Initials Name Provider Type Jasmina Connors, PT Physical Therapist Outcome Measures Row Name 07/20/25 1340 07/20/25 0800 How much help from another person do you currently need... Turning from your back to your side while in flat bed without using bedrails? 4 -CD 4 -PP Moving from lying on back to sitting on the side of a flat bed without bedrails? 4 -CD 4 -PP Moving to and from a bed to a chair (including a wheelchair)? 3 -CD 4 -PP Standing up from a chair using your arms (e.g., wheelchair, bedside chair)? 3 - CD 4 -PP Climbing 3-5 steps with a railing? 2 -CD 4 -PP To walk in hospital room? 3 -CD 4 -PP AM-PAC 6 Clicks Score (PT) 19 -CD 24 -PP Highest Level of Mobility Goal Walk 10 Steps or More-6 -CD Walk 250 Feet or More - 8 -PP Row Name 07/20/25 1340 Functional Assessment Outcome Measure Options AM-PAC 6 Clicks Basic Mobility (PT) -CD User Chavez (r) = Recorded By, (t) = Taken By, (c) = Cosigned By Initials Name Provider Type Jasmina Connors A, PT Physical Therapist Juan Da Silva, RN Registered Nurse Physical Therapy Education Title: PT OT UNIFORM ATTENDANT Therapies (Done) Topic: Physical Therapy (Done) Point: Mobility training (Done) Learning Progress Summary Patient Acceptance, E, VU,NR by CD at 07/20/2025 1341 Comment: VESTIBULAR REHAB WITH MAAME HALLPIKE AND BRUNILDA, BENEFITS OF OOB ACTIVITY, SAFETY WITH MOBILITY, PROGRESSION OF POC, D/C PLANNING, Point: Home exercise program (Done) Learning Progress Summary Patient Acceptance, E, VU,NR by CD at 07/20/2025 1341 Comment: VESTIBULAR REHAB WITH MAAME HALLPIKE AND BRUNILDA, BENEFITS OF OOB ACTIVITY, SAFETY WITH MOBILITY, PROGRESSION OF POC, D/C PLANNING, Point: Body mechanics (Done) Learning Progress Summary Patient Acceptance, E, VU,NR by CD at 07/20/2025 1341 Comment: VESTIBULAR REHAB WITH MAAME HALLPIKE AND BRUNILDA, BENEFITS OF OOB ACTIVITY, SAFETY WITH MOBILITY, PROGRESSION OF POC, D/C PLANNING, Point: Precautions (Done) Learning Progress Summary Patient Acceptance, E, VU,NR by CD at 07/20/2025 1341 Comment: VESTIBULAR REHAB WITH MAAME HALLPIKE AND BRUNILDA, BENEFITS OF OOB ACTIVITY, SAFETY WITH MOBILITY, PROGRESSION OF POC, D/C PLANNING, User Chavez Initials Effective Dates Name Provider Type Discipline 12/09/22 - Jasmina Carroll, PT Physical Therapist PT PT Recommendation and Plan Recommended discharge disposition is based on the functional assessment performed by PT/OT/Speech therapy (as applicable) and may not reflect the medical necessity determined by your provider or services covered by an individual patient's insurance plan or patient resource. Planned Therapy Interventions (PT): balance training, gait training, vestibular therapy, home exercise program, patient/family education Therapy Frequency (PT): daily Progress: improving Outcome Evaluation: PT PRESENTS WITH EVOLVING SYMPTOMS TO INCLUDE IMPAIRED BALANCE, NAUSEA, VOMITING, DIZZINESS AND DECLINE IN FUNCTIONAL MOBILITY. IMAGING R/O CVA. REQUESTED MAAME LALA PIKE/BRUNILDA MANEUVER TO IMPROVE SYMPTOMS. COMPLETED 2 REPS WITH SUBJECTIVE REPORT OF DECREASE IN VERTIGO 50% FOR APPROX 10 MINUTES. AMBULATED TO BATHROOM FOR TOILETING WITH CGA BUT REQUIRED MIN ASSIST TO AMBULATE BACK TO RECLINER DUE TO ONSET OF INCREASED VERTIGO, NAUSEA AND VOMITING WHILE ON COMMODE. WILL CONTINUE WITH VESTIBULAR REHAB WHILE INPT AND PROGRESS MOBILITY TOLERATED. RECOMMEND HOME WITH AND OP VESTIBULAR REHAB AT D/C. Time Calculation: PT Evaluation Complexity History, PT Evaluation Complexity: no personal factors and/or comorbidities Examination of Body Systems (PT Eval Complexity): total of 4 or more elements Clinical Presentation (PT Evaluation Complexity): evolving Clinical Decision Making (PT Evaluation Complexity): moderate complexity Overall Complexity (PT Evaluation Complexity): low complexity PT Charges Row Name 07/20/25 1343 Time Calculation Start Time 1110 -CD PT Received On 07/20/25 -CD PT Goal Re-Cert Due Date 07/30/25 -CD Untimed Charges PT Eval/Re-eval Minutes 64 -CD PT Canalith Repositioning 30 -CD Total Minutes Untimed Charges Total Minutes 94 -CD Total Minutes 94 -CD User Chavez (r) = Recorded By, (t) = Taken By, (c) = Cosigned By Initials Name Provider Type CD Jasmina Carroll, PT Physical Therapist Therapy Charges for Today Code Description Service Date Service Provider Modifiers Qty [id number] HC PT EVAL MOD COMPLEXITY 5 07/20/2025 Jasmina Carroll, PT GP 1 [id number] HC PT CANALITH REPOSITIONING PER DAY 07/20/2025 Jasmina Carroll, PT GP 1 [id number] PT Therapeutic Activity 07/20/25 PT G-Codes Outcome Measure Options: AM-PAC 6 Clicks Basic Mobility (PT) AM-PAC 6 Clicks Score (PT): 19 Jasmina Carroll PT 07/20/2025 * Significant Note - Inderjit Sapp MD - 07/20/2025 8:54 AM EDT Patient seen and examined. He is much improved following Brunilda's, able to get up without help, developed some recurrence of vertigo and N/V after getting up to the BR, currently is still slightly dizzy. Exam is nonfocal, no definite nystagmus noted. MRI brain is normal, personally reviewed. IMP - BPPV, improved with Brunilda's. RECs- Meclizine prn. PT to see for repeat Brunilda's in am. F/U with PCP, outpatient neurology prn. Thanks. documented in this encounter Plan of Treatment Scheduled Orders Name Type Priority Associated Diagnoses Orde r Schedule Basic Vestibular Evaluation Audiology Routine Benign paroxysmal positional vertigo, unspecified laterality Expected: 07/26/2025, Expires: 10/20/2026 documented as of this encounter Procedures Procedure Name Priority Date/Time Associated Diagnosis Comments CBC WITH AUTO DIFFERENTIAL Urgent 07/21/2025 9:50 AM EDT CBC AND DIFFERENTIAL Urgent 07/21/2025 9:50 AM EDT SCANNED - TELEMETRY 07/21/2025 9 :26 AM EDT POCT GLUCOSE FINGERSTICK Routine 07/20/2025 11:41 AM EDT HIGH SENSITIVITIY TROPONIN T 1HR Timed 07/20/2025 11:19 AM EDT ECHO COMPLETE W/ DOPPLER AND COLOR FLOW Routine 07/20/2025 10:13 AM EDT CBC WITH AUTO DIFFERENTIAL STAT 07/20/2025 7:52 AM EDT TROPONIN STAT 07/20/2025 7:52 AM EDT MAGNESIUM STAT 07/20/2025 7:52 AM EDT HEMOGLOBIN A1C Urgent 07/20/2025 7:52 AM EDT LIPID PANEL Urgent 07/20/2025 7:52 AM EDT COMPREHENSIVE METABOLIC PANEL STAT 07/20/2025 7:52 AM EDT POCT GLUCOSE FINGERSTICK Routine 07/20/2025 6:44 AM EDT ECG 12-LEAD STAT 07/20/2025 4:21 AM EDT MRI BRAIN WO CONTRAST Routine 07/20/2025 2:16 AM EDT POCT GLUCOSE FINGERSTICK Routine 07/20/2025 1:01 AM EDT SCANNED - IMAGING 07/20/2025 SCANNED - IMAGING 07/20/2025 SCANNED - IMAGING 07/20/2025 documented in this encounter Results * (ABNORMAL) CBC Auto Differential (07/21/2025 9:50 AM EDT) WBC 11.33(H) 3.40 - 10.80 10*3/mm3 07/21/2025 10:46 AM EDT [facility] RBC 4.93 4.14 - 5.80 10*6/mm3 07/21/2025 10:46 AM EDT [facility] Hemoglobin 15.0 13.0 - 17.7 g/dL 07/21/2025 10:46 AM EDT [facility] Hematocrit 46.7 37.5 - 51.0 % 07/21/2025 10:46 AM EDT [facility] MCV 94.7 79.0 - 97.0 fL 07/21/2025 10:46 AM EDT [facility] MCH 30.4 26.6 - 33.0 pg 07/21/2025 10:46 AM EDT [facility] MCHC 32.1 31.5 - 35.7 g/dL 07/21/2025 10:46 AM EDT [facility] RDW 13.3 12.3 - 15.4 % 07/21/2025 10:46 AM EDT [facility] RDW-SD 46.9 37.0 - 54.0 fl 07/21/2025 10:46 AM EDT [facility] MPV 9.6 6.0 - 12.0 fL 07/21/2025 10:46 AM [facility] Platelets 305 140 - 450 10*3/mm3 07/21/2025 10:46 AM [facility] Neutrophil % 73.3 42.7 - 76.0 % 07/21/2025 10:46 AM [facility] Lymphocyte % 19.0(L) 19.6 - 45.3 % 07/21/2025 10:46 AM [facility] Monocyte % 5.8 5.0 - 12.0 % 07/21/2025 10:46 AM [facility] Eosinophil % 1.1 0.3 - 6.2 % 07/21/2025 10:46 AM [facility] Basophil % 0.4 0.0 - 1.5 % 07/21/2025 10:46 AM [facility] Immature Grans % 0.4 0.0 - 0.5 % 07/21/2025 10:46 AM [facility] Neutrophils, Absolute 8.31(H) 1.70 - 7.00 10*3/mm3 07/21/2025 10:46 AM [facility] Lymphocytes, Absolute 2.15 0.70 - 3.10 10*3/mm3 07/21/2025 10:46 AM [facility] Monocytes, Absolute 0.66 0.10 - 0.90 10*3/mm3 07/21/2025 10:46 AM [facility] Eosinophils, Absolute 0.13 0.00 - 0.40 10*3/mm3 07/21/2025 10:46 AM [facility] Basophils, Absolute 0.04 0.00 - 0.20 10*3/mm3 07/21/2025 10:46 AM [facility] Immature Grans, Absolute 0.04 0.00 - 0.05 10*3/mm3 07/21/2025 10:46 AM [facility] nRBC 0.0 0.0 - 0.2 /100 WBC 07/21/2025 10:46 AM [facility] Blood Venipuncture / Unknown 07/21/2025 9:50 AM EDT 07/21/2025 10:39 AM EDT Kelly Watkins MD LAB BLOOD ORDERABLES Final Resul t [facility]
[address] [place] [address], * Telemetry Scan (07/21/2025 9:26 AM EDT) [facility] Onbase ECG ORDERABLES Final Result * POC Glucose Once (07/20/2025 11:41 AM EDT) Glucose 117 70 - 130 mg/dL 07/20/2025 11:45 AM EDT [facility] Comment:Serial Number: [id number]: [id number] Blood 07/20/2025 11:4 1 AM EDT 07/20/2025 11:45 AM EDT Kelly Watkins MD POINT OF CARE TEST ORDERABLES Fi nal Result [facility]
[address] [place] [address], * High Sensitivity Troponin T 1Hr (07/20/2025 11:19 AM EDT) HS Troponin T 8 <22 ng/L 07/20/2025 12:29 PM EDT [facility] Troponin T Numeric Delta 1 Abnormal if >/=3 ng/L 07/20/2025 12:29 PM EDT [facility] Blood Venipuncture / Unknown 07/20/2025 11:19 AM EDT 07/20/2025 12:04 PM EDT Narrative [facility] - 07/20/2025 12:29 PM EDT High Sensitive Troponin T Reference Range: <14.0 ng/L- Negative Female for AMI <22.0 ng/L- Negative Male for AMI >=14 - Abnormal Female indicating possible myocardial injury. >=22 - Abnormal Male indicating possible myocardial injury. Clinicians would have to utilize clinical acumen, EKG, Troponin, and serial changes to determine if it is an Acute Myocardial Infarction or myocardial injury due to an underlying chronic condition. us uJrgen Beatty III, DO LAB BLOOD ORDERAB LES Final Result [facility]
[address] [place] [address], * ECHO COMPLETE W/ DOPPLER AND COLOR FLOW (07/20/2025 10:13 AM EDT) EF(MOD-bp) 62.6 % LVIDd 4.7 cm LVIDs 2.9 cm IVSd 1.10 cm LVPWd 1.10 cm FS 38.3 % IVS/LVPW 1.00 cm ESV(cubed) 24.4 ml LV Sys Vol (BSA corrected) 18.3 cm2 EDV(cubed) 103.8 ml LV Paredes Vol (BSA corrected) 49.8 cm2 LV mass(C)d 187.5 grams LVOT area 3.1 cm2 LVOT diam 2.00 cm EDV(MOD-sp2) 96.7 ml EDV(MOD-sp4) 110.0 ml ESV(MOD-sp2) 34.8 ml ESV(MOD-sp4) 40.4 ml SV(MOD-sp2) 61.9 ml SV(MOD-sp4) 69.6 ml SVi(MOD-SP2) 28.0 ml/m2 SVi(MOD-SP4) 31.5 ml/m2 SVi (LVOT) 33.2 ml/m2 EF(MOD-sp2) 64.0 % EF(MOD-sp4) 63.3 % MV E max edgar 73.9 cm/sec MV A max edgar 64.5 cm/sec MV dec time 0.15 sec MV E/A 1.15 IVRT 116.0 ms LA ESV Index (BP) 24.8 ml/m2 Med Peak E' Edgar 9.0 cm/sec Lat Peak E' Edgar 10.8 cm/sec TR max edgar 202.0 cm/sec Avg E/e' ratio 7.46 SV(LVOT) 73.4 ml RV Base 3.5 cm RV Mid 2.9 cm RV Length 7.9 cm TAPSE (>1.6) 2.17 cm RV S' 12.8 cm/sec LA dimension (2D) 3.9 cm LV V1 max 107.5 cm/sec LV V1 max PG 4.6 mmHg LV V1 mean PG 2.5 mmHg LV V1 VTI 23.4 cm Ao pk edgar 127.0 cm/sec Ao max PG 6.5 mmHg Ao mean PG 3.0 mmHg Ao V2 VTI 29.3 cm NGOC(I,D) 2.5 cm2 Dimensionless Index 0.80 (DI) MV max PG 3.0 mmHg MV mean PG 1.00 mmHg MV V2 VTI 28.0 cm MV P1/2t 53.0 msec MVA(P1/2t) 4.1 cm2 MVA(VTI) 2.6 cm2 MV dec slope 496.0 cm/sec2 TR max PG 16.3 mmHg PA acc time 0.14 sec PI end-d edgar 85.9 cm/sec Ao root diam 3.5 cm BH CV ECHO SHUNT ASSESSMENT PERFORMED (HIDDEN SCRIPTING) 1 RVSP(TR) 19 mmHg RAP systole 3 mmHg BH CV VAS BP RIGHT ARM 134/87 mmHg Anatomical Region Laterality Modality Ultrasound Narrative 07/20/2025 10:36 AM EDT Left ventricular systolic function is normal. Calculated left ventricular EF = 62.6% Left ventricular ejection fraction appears to be 61 - 65%. Left ventricular diastolic function was normal. Saline test results are negative. Estimated right ventricular systolic pressure from tricuspid regurgitation is normal (<35 mmHg). Calculated right ventricular systolic pressure from tricuspid regurgitation is 19 mmHg. Left Ventricle Left ventricular systolic function is normal. Calculated left ventricular EF = 62.6% Left ventricular ejection fraction appears to be 61 - 65%. Normal left ventricular cavity size and wall thickness noted. Left ventricular diastolic function was normal. Right Ventricle Normal right ventricular cavity size and systolic function noted. Left Atrium Normal left atrial size and volume noted. Saline test results are negative. Right Atrium Normal right atrial cavity size noted. The inferior vena cava is normally sized. Normal IVC inspiratory collapse of greater than 50% noted. Mitral Valve The mitral valve is structurally normal with no significant stenosis present. Trace mitral valve regurgitation is present. Tricuspid Valve The tricuspid valve is structurally normal with no stenosis present. Trace to mild tricuspid valve regurgitation is present. Estimated right ventricular systolic pressure from tricuspid regurgitation is normal (<35 mmHg). Calculated right ventricular systolic pressure from tricuspid regurgitation is 19 mmHg. Aortic Valve The aortic valve is structurally normal with no stenosis present. The aortic valve appears trileaflet. No significant aortic valve regurgitation is present. Pulmonic Valve The pulmonic valve is structurally normal with no significant stenosis present. There is trace to mild pulmonic valve regurgitation present. Pericardium The pericardium is normal. There is no evidence of pericardial effusion. . Greater Vessels No dilation of the aortic root is present. No dilation of the sinuses of Valsalva is present. Shunt Assessment Verbal consent was obtained from the patient for use of agitated saline to assess for shunting. A total of 20 mL of agitated saline was administered. Maverick Christensen APRN CV ECHO ORDERABLES Final Resu lt * High Sensitivity Troponin T (07/20/2025 7:52 AM EDT) HS Troponin T 7 <22 ng/L 07/20/2025 9:06 AM EDT [facility] Blood Venipuncture / Unknown 07/20/2025 7:52 AM EDT 07/20/2025 8:31 AM EDT [facility] - 07/20/2025 9:06 AM EDT High Sensitive Troponin T Reference Range: <14.0 ng/L- Negative Female for AMI <22.0 ng/L- Negative Male for AMI >=14 - Abnormal Female indicating possible myocardial injury. >=22 - Abnormal Male indicating possible myocardial injury. Clinicians would have to utilize clinical acumen, EKG, Troponin, and serial changes to determine if it is an Acute Myocardial Infarction or myocardial injury due to an underlying chronic condition. us Jurgen Beatty III, DO LAB BLOOD ORDERAB LES Final Result [facility]
[address] [place] [address], * Magnesium (07/20/2025 7:52 AM EDT) Magnesium 2.1 1.6 - 2.6 mg/dL 07/20/2025 9:06 AM EDT [facility] Blood Venipuncture / Unknown 07/20/2025 7:52 AM EDT 07/20/2025 8:31 AM EDT us Jurgen Beatty III, DO LAB BLOOD ORDERAB LES Final Result Performing Organization Address [facility] [[email or web address]] Co de Phone Number [facility]
[address] [place] [address], * (ABNORMAL) CBC Auto Differential (07/20/2025 7:52 AM EDT) Pathologist [facility] WBC 16.16(H) 3.40 - 10.80 10*3/mm3 07/20/2025 8:35 AM EDT [facility] RBC 4.81 4.14 - 5.80 10*6/mm3 07/20/2025 8:35 AM EDT [facility] Hemoglobin 14.8 13.0 - 17.7 g/dL 07/20/2025 8:35 AM EDT [facility] Hematocrit 44.3 37.5 - 51.0 % 07/20/2025 8:35 AM EDT [facility] MCV 92.1 79.0 - 97.0 fL 07/20/2025 8:35 AM EDT [facility] MCH 30.8 26.6 - 33.0 pg 07/20/2025 8:35 AM EDT [facility] MCHC 33.4 31.5 - 35.7 g/dL 07/20/2025 8:35 AM EDT [facility] RDW 13.2 12.3 - 15.4 % 07/20/2025 8:35 AM [facility] RDW-SD 44.9 37.0 - 54.0 fl 07/20/2025 8:35 AM [facility] MPV 9.3 6.0 - 12.0 fL 07/20/2025 8:35 AM [facility] Platelets 294 140 - 450 10*3/mm3 07/20/2025 8:35 AM [facility] Neutrophil % 78.6(H) 42.7 - 76.0 % 07/20/2025 8:35 AM [facility] Lymphocyte % 14.3(L) 19.6 - 45.3 % 07/20/2025 8:35 AM [facility] Monocyte % 6.2 5.0 - 12.0 % 07/20/2025 8:35 AM [facility] Eosinophil % 0.1(L) 0.3 - 6.2 % 07/20/2025 8:35 AM [facility] Basophil % 0.2 0.0 - 1.5 % 07/20/2025 8:35 AM [facility] LABORATORY Immature Grans % 0.6(H) 0.0 - 0.5 % 07/20/2025 8:35 AM [facility] Neutrophils, Absolute 12.70(H) 1.70 - 7.00 10*3/mm3 07/20/2025 8:35 AM [facility] Lymphocytes, Absolute 2.31 0.70 - 3.10 10*3/mm3 07/20/2025 8:35 AM [facility] Monocytes, Absolute 1.00(H) 0.10 - 0.90 10*3/mm3 07/20/2025 8:35 AM [facility] Eosinophils, Absolute 0.02 0.00 - 0.40 10*3/mm3 07/20/2025 8:35 AM [facility] Basophils, Absolute 0.04 0.00 - 0.20 10*3/mm3 07/20/2025 8:35 AM [facility] Immature Grans, Absolute 0.09(H) 0.00 - 0.05 10*3/mm3 07/20/2025 8:35 AM EDT [facility] nRBC 0.0 0.0 - 0.2 /100 WBC 07/20/2025 8:35 AM EDT [facility] Blood Venipuncture / Unknown 07/20/2025 7:52 AM EDT 07/20/2025 8:32 AM EDT us Jurgen Beatty III, DO LAB BLOOD ORDERAB LES Final Result [facility]
[address] [place] [address], * Comprehensive Metabolic Panel (07/20/2025 7:52 AM EDT) Glucose 96 65 - 99 mg/dL 07/20/2025 9:06 AM EDT [facility] BUN 13.4 6.0 - 20.0 mg/dL 07/20/2025 9:06 AM T [facility] Creatinine 0.85 0.76 - 1.27 mg/dL 07/20/2025 9:06 AM EDT [facility] Sodium 142 136 - 145 mmol/L 07/20/2025 9:06 AM EDT [facility] Potassium 3.8 3.5 - 5.2 mmol/L 07/20/2025 9:06 AM EDT [facility] Chloride 107 98 - 107 mmol/L 07/20/2025 9:06 AM EDT [facility] CO2 24.0 22.0 - 29.0 mmol/L 07/20/2025 9:06 AM EDT [facility] Calcium 8.9 8.6 - 10.5 mg/dL 07/20/2025 9:06 AM EDT [facility] Total Protein 6.8 6.0 - 8.5 g/dL 07/20/2025 9:06 AM [facility] Albumin 4.0 3.5 - 5.2 g/dL 07/20/2025 9:06 AM [facility] ALT (SGPT) 11 1 - 41 U/L 07/20/2025 9:06 AM [facility] AST (SGOT) 13 1 - 40 U/L 07/20/2025 9:06 AM [facility] Alkaline Phosphatase 73 39 - 117 U/L 07/20/2025 9:06 AM [facility] Total Bilirubin 0.5 0.0 - 1.2 mg/dL 07/20/2025 9:06 AM [facility] Globulin 2.8 gm/dL 07/20/2025 9:06 AM [facility] Comment:Calculated Result A/G Ratio 1.4 g/dL 07/20/2025 9:06 AM [facility] BUN/Creatinine Ratio 15.8 7.0 - 25.0 07/20/2025 9:06 AM [facility] Anion Gap 11.0 5.0 - 15.0 mmol/L 07/20/2025 9:06 AM [facility] eGFR 105.2 >60.0 mL/min/1.7 3 07/20/2025 9:06 AM [facility] Blood Venipuncture / Unknown 07/20/2025 7:52 AM EDT 07/20/2025 8:31 AM [facility] LABORATORY - 07/20/2025 9:06 AM T GFR Categories in Chronic Kidney Disease (CKD) GFR Category GFR (mL/min/1.73) Interpretation G1 90 or greater Normal or high (1) G2 60-89 Mild decrease (1) G3a 45-59 Mild to moderate decrease G3b 30-44 Moderate to severe decrease G4 15-29 Severe decrease G5 14 or less Kidney failure (1)In the absence of evidence of kidney disease, neither GFR category G1 or G2 fulfill the criteria for CKD. eGFR calculation 2020 CKD-EPI creatinine equation, which does not include race as a factor us Jurgen Beatty III, DO LAB BLOOD ORDERAB LES Final Result [facility]
[address] [place] [address], * (ABNORMAL) Lipid Panel (07/20/2025 7:52 AM EDT) Total Cholesterol 187 0 - 200 mg/dL 07/20/2025 9:06 AM EDT [facility] Triglycerides 54 0 - 150 mg/dL 07/20/2025 9:06 AM EDT [facility] HDL Cholesterol 40 40 - 60 mg/dL 07/20/2025 9:06 AM EDT [facility] LDL Cholesterol 137(H) 0 - 100 mg/dL 07/20/2025 9:06 AM EDT [facility] VLDL Cholesterol 10 5 - 40 mg/dL 07/20/2025 9:06 AM EDT [facility] LDL/HDL Ratio 3.41 07/20/2025 9:06 AM EDT [facility] Blood Venipuncture / Unknown 07/20/2025 7:52 AM EDT 07/20/2025 8:31 AM EDT Narrative [facility] - 07/20/2025 9:06 AM EDT Cholesterol Reference Ranges (U.S. Department of Health and Human Services ATP III Classifications) Desirable <200 mg/dL Borderline High 200-239 mg/dL High Risk >240 mg/dL Triglyceride Reference Ranges (U.S. Department of Health and Human Services ATP III Classifications) Normal <150 mg/dL Borderline High 150-199 mg/dL High 200-499 mg/dL Very High >500 mg/dL HDL Reference Ranges (U.S. Department of Health and Human Services ATP III Classifications) Low <40 mg/dl (major risk factor for CHD) High >60 mg/dl ('negative' risk factor for CHD) LDL Reference Ranges (U.S. Department of Health and Human Services ATP III Classifications) Optimal <100 mg/dL Near Optimal 100-129 mg/dL Borderline High 130-159 mg/dL High 160-189 mg/dL Very High >189 mg/dL LDL is calculated using the NIH LDL-C calculation. Maverick Christensen [employer]TING [employer] REPAIRER LAB BLOOD ORDERABLES Final Re sult [facility]
[address] [place] [address], * (ABNORMAL) Hemoglobin A1c (07/20/2025 7:52 AM EDT) Hemoglobin A1C 5.82(H) 4.80 - 5.60 % 07/20/2025 10:22 AM EDT [facility] Blood Venipuncture / Unknown 07/20/2025 7:52 AM EDT 07/20/2025 8:31 AM EDT Narrative [facility] - 07/20/2025 10:22 AM EDT Hemoglobin A1C Ranges: Increased Risk for Diabetes 5.7% to 6.4% Diabetes >= 6.5% Diabetic Goal < 7.0% Maverick Christensen APRN LAB BLOOD ORDERABLES Final Re sult Performing Organization Address [facility] [[email or web address]] Co de Phone Number [facility]
[address] [place] [address], * POC Glucose Once (07/20/2025 6:44 AM EDT) Glucose 109 70 - 130 mg/dL 07/20/2025 6:47 AM EDT [facility] Comment:Serial Number: [id number] Blood 07/20/2025 6:44 AM EDT 07/20/2025 6:47 AM EDT Kelly Watkins MD POINT OF CARE TEST ORDERABLES Fi nal Result Performing Organization Address City/[facility]/ZIP Co de Phone Number [facility]
[address] [place] [address], * ECG 12 Lead Stroke Evaluation (07/20/2025 4:21 AM EDT) QT Interval 408 ms ECG QTC Interval 420 ms ECG 07/20/2025 4:21 AM EDT 07/21/2025 1:05 PM EDT Narrative [facility] ECG - 07/21/2025 1:05 PM EDT Test Reason : Stroke Evaluation Blood Pressure : */* mmHG Vent. Rate : 64 BPM Atrial Rate : 64 BPM P-R Int : 172 ms QRS Dur : 96 ms QT Int : 408 ms P-R-T Axes : 38 32 38 degrees QTcB Int : 420 ms Normal sinus rhythm Possible Left atrial enlargement Borderline ECG No previous ECGs available Confirmed by Humza Kaufman ([id number]) on 07/21/2025 1:05:23 PM Referred By: Confirmed By: Humza Kaufman Procedure Note Humza Kaufman MD - 07/21/2025 Test Reason : Stroke Evaluation Blood Pressure : */* mmHG Vent. Rate : 64 BPM Atrial Rate : 64 BPM P-R Int : 172 ms QRS Dur : 96 ms QT Int : 408 ms P-R-T Axes : 38 32 38 degrees QTcB Int : 420 ms Normal sinus rhythm Possible Left atrial enlargement Borderline ECG No previous ECGs available Confirmed by Humza Kaufman ([id number]) on 07/21/2025 1:05:23 PM Referred By: Confirmed By: Humza Kaufman Jurgen Beatty III, DO ECG ORDERABLES F inal Result ECG * MRI Brain Without Contrast (07/20/2025 2:16 AM EDT) Anatomical Region Laterality Modality Head, Neck N/A Magnetic Resonan ce 07/20/2025 6:38 AM EDT Impressions 07/20/2025 6:44 AM EDT Negative brain MRI. No evidence of acute or subacute infarct. No acute hemorrhage. Electronically Signed: Nam Davis MD 07/20/2025 6:44 AM EDT Workstation ID: [id number] Narrative 07/20/2025 6:44 AM EDT MRI BRAIN WO CONTRAST Date of Exam: 07/20/2025 2:05 AM EDT Indication: Stroke, follow up vertigo, gait instability. Comparison: None available. Technique: Routine multiplanar/multisequence sequence images of the brain were obtained without contrast administration. Findings: Diffusion images reveal no acute or subacute infarct. Ventricular size and configuration are within normal limits. White matter signal is within normal limits for patient age. No acute hemorrhage is identified. Craniocervical junction is normal. Pituitary gland is unremarkable. No masses are seen allowing for the lack of contrast. The major intracranial flow voids are maintained. No mastoid effusion is identified. Procedure Note Nam Davis MD - 07/20/2025 MRI BRAIN WO CONTRAST Date of Exam: 07/20/2025 2:05 AM EDT Indication: Stroke, follow up vertigo, gait instability. Comparison: None available. Technique: Routine multiplanar/multisequence sequence images of the brainwere obtained without contrast administration. Findings: Diffusion images reveal no acute or subacute infarct. Ventricular size andconfiguration are within normal limits. White matter signal is withinnormal limits for patient age. No acute hemorrhage is identified.Craniocervical junction is normal. Pituitary gland is unremarkable. No masses are seen allowing for the lackof contrast. The major intracranial flow voids are maintained. No mastoideffusion is identified. IMPRESSION: Negative brain MRI. No evidence of acute or subacute infarct. No acutehemorrhage. Electronically Signed: Nam Davis MD 07/20/2025 6:44 AM EDT Workstation ID: [id number] Maverick Christensen [employer] C[employer]TING BLOCK REPAIRER IMG MRI ORDERABLES Final Resu lt * (ABNORMAL) POC Glucose Once (07/20/2025 1:01 AM EDT) Glucose 153(H) 70 - 130 mg/dL 07/20/2025 1:06 AM EDT [facility] Comment:Serial Number: [id number] Blood 07/20/2025 1:01 AM EDT 07/20/2025 1:06 AM EDT Jurgen Beatty III, DO POINT OF CARE [place] T ORDERABLES Final Result [facility]
[address] [place] [address], * IMAGING SCANNED (07/20/2025) Anatomical Region Laterality Modality Radiographic Elsie ging [facility] IMG DIAGNOSTIC IMAGING ORDERA BLES Final Result * IMAGING SCANNED (07/20/2025) Anatomical Region Laterality Modality Radiographic Elsie ging [facility] IMG DIAGNOSTIC IMAGING ORDERA BLES Final Result * IMAGING SCANNED (07/20/2025) Anatomical Region Laterality Modality Radiographic Elsie ging [facility] IMG DIAGNOSTIC IMAGING ORDERA BLES Final Result documented in this encounter Visit Diagnoses Diagnosis BPPV (benign paroxysmal positional vertigo)- Primary Benign paroxysmal positional vertigo Benign paroxysmal positional vertigo, unspecified laterality Hyperlipidemia Other and unspecified hyperlipidemia Pre-diabetes Other abnormal glucose documented in this encounter Admitting Diagnoses Diagnosis Dizziness Dizziness and giddiness documented in this encounter Administered Medications Inactive Administered Medications - up to 3 most recent administrations Medication Order MAR Action Action Date Dose Rate Site acetaminophen (TYLENOL) 160 MG/5ML oral solution 650 mg 650 mg, Oral, Every 4 Hours PRN, Mild Pain, Starting on 07/20/25 at 0156, If given for fever, use fever parameter: fever greater than 100.4 F Based on patient request - if ordered for moderate or severe pain, provider allows for administration of a medication prescribed for a lower pain scale. Do not exceed 4 grams of acetaminophen in a 24 hr period. Max dose of 2gm for AST/ALT greater than 120 units/L. If given for pain, use the following pain scale: Mild Pain = Pain Score of 1-3, CPOT 1-2 Moderate Pain = Pain Score of 4-6, CPOT 3-4 Severe Pain = Pain Score of 7-10, CPOT 5-8 acetaminophen (TYLENOL) suppository 650 mg 650 mg, Rectal, Every 4 Hours PRN, Mild Pain, Starting on 07/20/25 at 0156, If given for fever, use fever parameter: fever greater than 100.4 F Based on patient request - if ordered for moderate or severe pain, provider allows for administration of a medication prescribed for a lower pain scale. Do not exceed 4 grams of acetaminophen in a 24 hr period. Max dose of 2gm for AST/ALT greater than 120 units/L. If given for pain, use the following pain scale: Mild Pain = Pain Score of 1-3, CPOT 1-2 Moderate Pain = Pain Score of 4-6, CPOT 3-4 Severe Pain = Pain Score of 7-10, CPOT 5-8 acetaminophen (TYLENOL) tablet 650 mg 650 mg, Oral, Every 4 Hours PRN, Mild Pain, Starting on 07/20/25 at 0156, If given for fever, use fever parameter: fever greater than 100.4 F Based on patient request - if ordered for moderate or severe pain, provider allows for administration of a medication prescribed for a lower pain scale. Do not exceed 4 grams of acetaminophen in a 24 hr period. Max dose of 2gm for AST/ALT greater than 120 units/L. If given for pain, use the following pain scale: Mild Pain = Pain Score of 1-3, CPOT 1-2 Moderate Pain = Pain Score of 4-6, CPOT 3-4 Severe Pain = Pain Score of 7-10, CPOT 5-8 aspirin chewable tablet 81 mg 81 mg, Oral, Daily, First dose on 07/20/25 at 0900, If patient fails dysphagia, AL option MUST be given. Do not exceed 4 grams of aspirin in a 24 hr period. If given for pain, use the following pain scale: Mild Pain = Pain Score of 1-3, CPOT 1-2 Moderate Pain = Pain Score of 4-6, CPOT 3-4 Severe Pain = Pain Score of 7-10, CPOT 5-8 Given 07/20/2025 8:12 AM EDT 81 mg atorvastatin (LIPITOR) tablet 80 mg 80 mg, Oral, Nightly, First dose on 07/20/25 at 0115, Avoid grapefruit juice. Given 07/20/2025 10:06 PM EDT 80 mg Given 07/20/2025 2:59 AM EDT 80 mg Calcium Replacement - Follow Nurse / BPA Driven Protocol Open Order & Select [facility] Electrolyte Replacement Protocol Algorithm to View Details lactated ringers infusion 75 mL/hr, Intravenous, Continuous, Starting on 07/20/25 at 0245, For 12 hours Currently Infusing 07/20/2025 12:00 PM EDT 75 mL/hr 75 mL/hr Currently Infusing 07/20/2025 8:00 AM EDT 75 mL/hr 75 mL /hr New Bag 07/20/2025 3:00 AM EDT 75 mL/hr 75 mL/hr lactated ringers infusion 75 mL/hr, Intravenous, Continuous, Starting on 07/20/25 at 1300, For 1 day New Bag 07/21/2025 6:12 AM EDT 75 mL/hr 75 mL/hr Currently Infusing 07/20/2025 2:00 PM EDT 75 mL/hr 75 mL /hr Currently Infusing 07/20/2025 12:08 PM EDT 75 mL/hr 75 m L/hr Magnesium Standard Dose Replacement - Follow Nurse / BPA Driven Protocol Open Order & Select [facility] Electrolyte Replacement Protocol Algorithm to View Details meclizine (ANTIVERT) tablet 25 mg 25 mg, Oral, 3 Times Daily PRN, Dizziness, Starting on 07/20/25 at 0246 Given 07/20/2025 8:12 AM EDT 25 mg meclizine (ANTIVERT) tablet 25 mg 25 mg, Oral, Every 8 Hours Scheduled, First dose (after last modification) on 07/20/25 at 1600 Given 07/21/2025 1:07 PM EDT 25 mg Given 07/21/2025 6:12 AM EDT 25 mg Given 07/20/2025 10:06 PM EDT 25 mg melatonin tablet 5 mg 5 mg, Oral, Nightly, First dose on 07/20/25 at 0245 Given 07/20/2025 10:06 PM EDT 5 mg nitroglycerin (NITROSTAT) SL tablet 0.4 mg 0.4 mg, Sublingual, Every 5 Minutes PRN, Chest Pain, Starting on Mon07/20/25 at 0155, If Pain Unrelieved After 3 Doses Notify MD May administer up to 3 doses per episode. Hold if SBP less than 100. ondansetron (ZOFRAN) injection 4 mg 4 mg, Intravenous, Every 6 Hours PRN, Nausea, Vomiting, Starting on Mon07/20/25 at 0156, If BOTH ondansetron (ZOFRAN) and promethazine (PHENERGAN) are ordered use ondansetron first and THEN promethazine IF ondansetron is ineffective. Given 07/20/2025 12:07 PM EDT 4 mg Phosphorus Replacement - Follow Nurse / BPA Driven Protocol Open Order & Select S Electrolyte Replacement Protocol Algorithm to View Details Potassium Replacement - Follow Nurse / BPA Driven Protocol Open Order & Select S Electrolyte Replacement Protocol Algorithm to View Details prochlorperazine (COMPAZINE) injection 5 mg 5 mg, Intravenous, Every 6 Hours PRN, Nausea, Vomiting, Starting on Mon07/20/25 at 1159, If multiple N/V medications ordered, use in the following order: Ondansetron, Prochlorperazine, Promethazine. Use PO unless patient refuses or patient unable to swallow. sodium chloride 0.9 % flush 10 mL 10 mL, Intravenous, Every 12 Hours Scheduled, First dose on Mon07/20/25 at 0115 Given 07/20/2025 10:08 PM EDT 10 mL sodium chloride 0.9 % flush 10 mL 10 mL, Intravenous, As Needed, Line Care, Starting on Mon07/20/25 at 0022 sodium chloride 0.9 % flush 10 mL 10 mL, Intravenous, Every 12 Hours Scheduled, First dose on Mon07/20/25 at 0245 Given 07/20/2025 10:07 PM EDT 10 mL sodium chloride 0.9 % flush 10 mL 10 mL, Intravenous, As Needed, Line Care, Starting on Mon07/20/25 at 0154 sodium chloride 0.9 % infusion 40 mL 40 mL, Intravenous, at 100 mL/hr, As Needed, Line Care, Starting on Mon07/20/25 at 0022, Following administration of an IV intermittent medication, flush line with 40mL NS at 100mL/hr. sodium chloride 0.9 % infusion 40 mL 40 mL, Intravenous, at 100 mL/hr, As Needed, Line Care, Starting on 07/20/25 at 0154, Following administration of an IV intermittent medication, flush line with 40mL NS at 100mL/hr. documented in this encounter Active and Recently Administered Medications Times are shown in EDT. Scheduled Medication Order 07/19/2025 07/20/2025 07/21/2025 aspirin chewable tablet 81 mg (CANCELED)(Linked Group 1) 81 mg, Oral, Daily, First dose on 07/20/25 at 0900, If patient fails dysphagia, AL option MUST be given. Do not exceed 4 grams of aspirin in a 24 hr period. If given for pain, use the following pain scale: Mild Pain = Pain Score of 1-3, CPOT 1-2 Moderate Pain = Pain Score of 4-6, CPOT 3-4 Severe Pain = Pain Score of 7-10, CPOT 5-8 0812 (Given - Provider: Juan Paniagua, MIKE) atorvastatin (LIPITOR) tablet 80 mg (CANCELED) 80 mg, Oral, Nightly, First dose on 07/20/25 at 0115, Avoid grapefruit juice. 0259 (Given - Provider: Lay Lorenz RN)2206 (Given - Provider: Lay Lorenz RN) meclizine (ANTIVERT) tablet 25 mg 25 mg, Oral, Every 8 Hours Scheduled, First dose (after last modification) on 07/20/25 at 1600 1532 (Given - Provider: Juan Paniagua, MIKE)2206 (Given - Provider: Lay Lorenz RN) 0612 (Given - Provider: Lay Lorenz RN)1307 (Given - Provider: Ayanna Lakhani RN) melatonin tablet 5 mg 5 mg, Oral, Nightly, First dose on 07/20/25 at 0245 0244 (Not Given - Provider: Lay Lorenz RN - Reason: Order parameters not met)2206 (Given - Provider: Lay Lorenz RN) sodium chloride 0.9 % flush 10 mL 10 mL, Intravenous, Every 12 Hours Scheduled, First dose on 07/20/25 at 0115 0313 (Not Given - Provider: Lay Lorenz RN - Reason: Other (Comment Required) - Comment: off schedule)0803 (Not Given - Provider: Juan Paniagua RN - Reason: Given from running infusion)2208 (Given - Provider: Lay Lorenz RN) 0949 (Not Given - Provider: Lay Palma RN - Reason: Other - Comment: infusing) sodium chloride 0.9 % flush 10 mL 10 mL, Intravenous, Every 12 Hours Scheduled, First dose on 07/20/25 at 0245 0313 (Not Given - Provider: Lay Lorenz RN - Reason: Other (Comment Required))0803 (Not Given - Provider: Juan Paniagua RN - Reason: Given from running infusion)220 (Given - Provider: Lay Lorenz RN) 0949 (Not Given - Provider: Lay Palma RN - Reason: Other - Comment: duplicate order) Continuous Medication Order 07/19/2025 07/20/2025 07/21/2025 lactated ringers infusion () 75 mL/hr, Intravenous, Continuous, Starting on 07/20/25 at 0245, For 12 hours 0300 (New Bag - Provider: Lay Lorenz RN)0800 (Currently Infusing - Provider: Juan Paniagua RN)1200 (Currently Infusing - Provider: Juan Paniagua RN - Comment: [Order ends at this time. Document the following action when infusion is complete: Stopped])1459 (Stopped - Provider: Juan Paniagua RN - Comment: [Order ends at this time. Document the following action when infusion is complete: Stopped])1526 (Canceled Entry - Provider: Juan Paniagua RN - Comment: [Order ends at this time. Document the following action when infusion is complete: Stopped]) lactated ringers infusion 75 mL/hr, Intravenous, Continuous, Starting on 07/20/25 at 1300, For 1 day 1208 (Currently Infusing - Provider: Juan Paniagua RN)1400 (Currently Infusing - Provider: Juan Paniagua RN) 0612 (New Bag - Provider: Lay Lorenz RN - Comment: [Order ends at this time. Document the following action when infusion is complete: Stopped])1206 (Stopped - Provider: Lay Palma RN - Comment: [Order ends at this time. Document the following action when infusion is complete: Stopped]) PRN Medication Order 07/19/2025 07/20/2025 07/21/2025 acetaminophen (TYLENOL) 160 MG/5ML oral solution 650 mg(Linked Group 2) 650 mg, Oral, Every 4 Hours PRN, Mild Pain, Starting on 07/20/25 at 0156, If given for fever, use fever parameter: fever greater than 100.4 F Based on patient request - if ordered for moderate or severe pain, provider allows for administration of a medication prescribed for a lower pain scale. Do not exceed 4 grams of acetaminophen in a 24 hr period. Max dose of 2gm for AST/ALT greater than 120 units/L. If given for pain, use the following pain scale: Mild Pain = Pain Score of 1-3, CPOT 1-2 Moderate Pain = Pain Score of 4-6, CPOT 3-4 Severe Pain = Pain Score of 7-10, CPOT 5-8 acetaminophen (TYLENOL) suppository 650 mg(Linked Group 2) 650 mg, Rectal, Every 4 Hours PRN, Mild Pain, Starting on 07/20/25 at 0156, If given for fever, use fever parameter: fever greater than 100.4 F Based on patient request - if ordered for moderate or severe pain, provider allows for administration of a medication prescribed for a lower pain scale. Do not exceed 4 grams of acetaminophen in a 24 hr period. Max dose of 2gm for AST/ALT greater than 120 units/L. If given for pain, use the following pain scale: Mild Pain = Pain Score of 1-3, CPOT 1-2 Moderate Pain = Pain Score of 4-6, CPOT 3-4 Severe Pain = Pain Score of 7-10, CPOT 5-8 acetaminophen (TYLENOL) tablet 650 mg(Linked Group 2) 650 mg, Oral, Every 4 Hours PRN, Mild Pain, Starting on 07/20/25 at 0156, If given for fever, use fever parameter: fever greater than 100.4 F Based on patient request - if ordered for moderate or severe pain, provider allows for administration of a medication prescribed for a lower pain scale. Do not exceed 4 grams of acetaminophen in a 24 hr period. Max dose of 2gm for AST/ALT greater than 120 units/L. If given for pain, use the following pain scale: Mild Pain = Pain Score of 1-3, CPOT 1-2 Moderate Pain = Pain Score of 4-6, CPOT 3-4 Severe Pain = Pain Score of 7-10, CPOT 5-8 Calcium Replacement - Follow Nurse / BPA Driven Protocol Open Order & Select [facility] Electrolyte Replacement Protocol Algorithm to View Details Magnesium Standard Dose Replacement - Follow Nurse / BPA Driven Protocol Open Order & Select [facility] Electrolyte Replacement Protocol Algorithm to View Details meclizine (ANTIVERT) tablet 25 mg (CANCELED) 25 mg, Oral, 3 Times Daily PRN, Dizziness, Starting on 07/20/25 at 0246 0812 (Given - Provider: Juan Paniagua, RN) nitroglycerin (NITROSTAT) SL tablet 0.4 mg 0.4 mg, Sublingual, Every 5 Minutes PRN, Chest Pain, Starting on 07/20/25 at 0155, If Pain Unrelieved After 3 Doses Notify MD May administer up to 3 doses per episode. Hold if SBP less than 100. ondansetron (ZOFRAN) injection 4 mg 4 mg, Intravenous, Every 6 Hours PRN, Nausea, Vomiting, Starting on 07/20/25 at 0156, If BOTH ondansetron (ZOFRAN) and promethazine (PHENERGAN) are ordered use ondansetron first and THEN promethazine IF ondansetron is ineffective. 1207 (Given - Provider: Juan Paniagua, MIKE) Phosphorus Replacement - Follow Nurse / BPA Driven Protocol Open Order & Select [facility] Electrolyte Replacement Protocol Algorithm to View Details Potassium Replacement - Follow Nurse / BPA Driven Protocol Open Order & Select [facility] [facility] Electrolyte Replacement Protocol Algorithm to View Details prochlorperazine (COMPAZINE) injection 5 mg 5 mg, Intravenous, Every 6 Hours PRN, Nausea, Vomiting, Starting on 07/20/25 at 1159, If multiple N/V medications ordered, use in the following order: Ondansetron, Prochlorperazine, Promethazine. Use PO unless patient refuses or patient unable to swallow. sodium chloride 0.9 % flush 10 mL 10 mL, Intravenous, As Needed, Line Care, Starting on 07/20/25 at 0022 sodium chloride 0.9 % flush 10 mL 10 mL, Intravenous, As Needed, Line Care, Starting on 07/20/25 at 0154 sodium chloride 0.9 % infusion 40 mL 40 mL, Intravenous, at 100 mL/hr, As Needed, Line Care, Starting on 07/20/25 at 0022, Following administration of an IV intermittent medication, flush line with 40mL NS at 100mL/hr. sodium chloride 0.9 % infusion 40 mL 40 mL, Intravenous, at 100 mL/hr, As Needed, Line Care, Starting on 07/20/25 at 0154, Following administration of an IV intermittent medication, flush line with 40mL NS at 100mL/hr. Linked Groups Order Group 1: aspirin chewable tablet 81 mg (CANCELED)Jump to med 81 mg, Oral, Daily, First dose on 07/20/25 at 0900, If patient fails dysphagia, AL option MUST be given. Do not exceed 4 grams of aspirin in a 24 hr period. If given for pain, use the following pain scale: Mild Pain = Pain Score of 1-3, CPOT 1-2 Moderate Pain = Pain Score of 4-6, CPOT 3-4 Severe Pain = Pain Score of 7-10, CPOT 5-8 Or aspirin suppository 300 mg (CANCELED) 300 mg, Rectal, Daily, First dose on 07/20/25 at 0900, If patient fails dysphagia, AL option MUST be given. Do not exceed 4 grams of aspirin in a 24 hr period. If given for pain, use the following pain scale: Mild Pain = Pain Score of 1-3, CPOT 1-2 Moderate Pain = Pain Score of 4-6, CPOT 3-4 Severe Pain = Pain Score of 7-10, CPOT 5-8 Group 2: acetaminophen (TYLENOL) tablet 650 mgJump to med 650 mg, Oral, Every 4 Hours PRN, Mild Pain, Starting on 07/20/25 at 0156, If given for fever, use fever parameter: fever greater than 100.4 F Based on patient request - if ordered for moderate or severe pain, provider allows for administration of a medication prescribed for a lower pain scale. Do not exceed 4 grams of acetaminophen in a 24 hr period. Max dose of 2gm for AST/ALT greater than 120 units/L. If given for pain, use the following pain scale: Mild Pain = Pain Score of 1-3, CPOT 1-2 Moderate Pain = Pain Score of 4-6, CPOT 3-4 Severe Pain = Pain Score of 7-10, CPOT 5-8 Or acetaminophen (TYLENOL) 160 MG/5ML oral solution 650 mgJump to med 650 mg, Oral, Every 4 Hours PRN, Mild Pain, Starting on 07/20/25 at 0156, If given for fever, use fever parameter: fever greater than 100.4 F Based on patient request - if ordered for moderate or severe pain, provider allows for administration of a medication prescribed for a lower pain scale. Do not exceed 4 grams of acetaminophen in a 24 hr period. Max dose of 2gm for AST/ALT greater than 120 units/L. If given for pain, use the following pain scale: Mild Pain = Pain Score of 1-3, CPOT 1-2 Moderate Pain = Pain Score of 4-6, CPOT 3-4 Severe Pain = Pain Score of 7-10, CPOT 5-8 Or acetaminophen (TYLENOL) suppository 650 mgJump to med 650 mg, Rectal, Every 4 Hours PRN, Mild Pain, Starting on 07/20/25 at 0156, If given for fever, use fever parameter: fever greater than 100.4 F Based on patient request - if ordered for moderate or severe pain, provider allows for administration of a medication prescribed for a lower pain scale. Do not exceed 4 grams of acetaminophen in a 24 hr period. Max dose of 2gm for AST/ALT greater than 120 units/L. If given for pain, use the following pain scale: Mild Pain = Pain Score of 1-3, CPOT 1-2 Moderate Pain = Pain Score of 4-6, CPOT 3-4 Severe Pain = Pain Score of 7-10, CPOT 5-8 documented in this encounter Care Teams Team Physician Relationship Specialty Start Date End Date Provider, [place] [address] PCP - General 07/19/25 documented as of this encounter
--- OUTSIDE RECORDS SUMMARY | 2025-07-24 06:00 | XMS_ITS ---
Author Organization [facility] Address [address] [facility] [address] [id number] Care Team Providers Care Oil And Gas Drafter Name Role Phone Blayne Brito Primary Care Provider Allergies No Known Allergies Results Component Value Reference Range Notes CBC Fingerstick (in house) Reviewed date:07/25/2025 12:07:32 PM Interpretation: Performing Lab: Notes/Report: wbc 10.8 3.5 - 10 lym 24.6% 15 - 50 mid 6.2% 2 - 15 gran 69.2% 35 - 80 rbc 5.79 3.5 - 5.5 hgb 17.6 11.5 - 16.5 hct 52.3 35 - 55 mcv 900.4 75 - 100 mch 30.3 25 - 35 mchc 33..6 31 - 38 plat 220 100 - 400 REASON FOR VISIT D/C Follow Up from [facility] Medications Medication SIG (Take, Route, Fr equency, Duration) Notes Start Date End Date Status Claritin 10 MG 1 tablet Orally Once a day Active Meclizine HCl 25 MG 1 tablet as needed O rally every 12 hrs Active Meloxicam 15 MG 1 tablet Orally Once a day; Duration: 30 days 05/21/2025 Not-Taking Problems Problem Type SNOMED Code ICD Code Onset Dates Problem Status W/U Status Risk Notes Problem Leukocytosis (367123715) Leukocytosis, unspecified (D72.829) Active confirmed Vital Signs Weight 205.6 lbs 07/24/2025 Blood pressure systolic 132 mm Hg 07/24/20 25 Blood pressure diastolic 80 mm Hg 025 Heart Rate 76 /min 07/24/2025 Height 76 in 07/24/2025 BMI 25.02 kg/m2 07/24/2025 Encounters Encounter Location Date Provider Diagnosis [facility] [address] [facility] [address] [facility] [address] [place] [id number] 07/24/2025 Blayne Brito Vertigo R42 ; Snorin g R06.83 ; Witnessed apneic spells R06.81 ; Leukocytosis, unspecified D72.829 and BMI 25.0-25.9,adult Z68.25 Assessments Encounter Date Diagnosis (ICD Code) Assessment Notes Treatment Notes Treatment Clinical Notes Section Notes 07/24/2025 Vertigo (ICD-10 - R42) 07/24/2025 Snoring (ICD-10 - R06.83) 07/24/2025 Witnessed apneic spells (ICD-10 - R06.81) 07/24/2025 Leukocytosis, unspecified (ICD-10 - D72.829) 07/24/2025 BMI 25.0-25.9,adult (ICD-10 - Z68.25) 07/24/2025 Other Discharge summary with available lab/diagnostic imaging results obtained and reviewed. Discharge medication list reconciled. Appropriate counseling provided. Moderate Complexity Plan Of Treatment Medication Medication Name Sig Start Date Stop Date Notes Meclizine HCl 25 MG 1 tablet as needed Orally every 12 hrs Treatment Notes Assessment Notes Other Discharge summary wi th available lab/diagnostic imaging results obtained and reviewed. Discharge medication list reconciled. Appropriate counseling provided. Moderate Complexity Pending Test Test Name Order Date sleep study 07/24/2025 Next Appt Details Follow Up: 3 Months fasting, Reason: Provider Name:Blayne Zaragoza ry, 11/13/2025 09:15:00 AM, [address] [facility] 36 [facility], [address], [place], [phone], Progress Notes * Brian SWANSONDOB:1975 (50 yo M)Acc No.[id number]:07/24/2025 Progress Notes Patient: Brian GE Provider: Paige Brito M.D. :1975 A ge:50 Y S ex:Male Date:07/24/2025 Address:[address] [place], [place] [phone] Subjective: * Chief Complaints: * 1 . D/C Follow Up from [facility]. * HPI: H PI: Patient is here today for a Transition of Care Visit. Discharge from the following Facility: [facility] following admission for Vertigo, Discharge date: 07/21/2025 ,Date of phone contact following discharge: 07/22/2025. Pt states he is feeling better. . * ROS: C ONSTITUTIONAL: Positive for s nores, has noticed him stop breathing while sleeping. * Medical History: A llergic Rhinitis. 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 * Hospitalization/Major Diagno stic Procedure: [facility] due to Kidney donation- 4 nights [...] yes. Marital Status: . Alcohol: no. 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 Past smoking status: no. Recreational drug use: no. Alcohol: No. Sexually active: yes. * Medications: T aking Meclizine HCl 25 MG Tablet 1 tablet as needed Orally every 12 hrs , Taking Claritin 10 MG Tablet 1 tablet Orally Once a day , Not-Taking Meloxicam 15 MG Tablet 1 tablet Orally Once a day , Medication List reviewed and reconciled with the patient * Allergies: N .K.D.A. Objective: * Vitals: W t: 205.6, Temp: 97.3, BP: 132/80, HR: 76, Nurse: DES, Ht: 76, BMI:25.02. Assessment: * Assessment: 1. V ertigo - R42 (Primary) 2 . S noring - R06.83 3 . W itnessed apneic spells - R06.81 4 . L eukocytosis, unspecified - D72.829 ? 5 . B AR 25.0-25.9,adult - Z68.25 Plan: * Treatment: 2. S noring I maging: sleep study 3.?Witnessed apneic spells?Imaging: sleep study* Home study through Yvonne Stern 07/24/2025 12:00:45 PM EDT > faxed to [facility] Sleep Study 4.?Leukocytosis, unspecified?LAB: CBC Fingerstick (in house) (Collection Date & Time - 07/24/2025)* Value Reference Range w bc 10.8 3.5 - 10 * l ym 24.6% 15 - 50 * m id 6.2% 2 - 15 * g ran 69.2% 35 - 80 * r bc 5.79 3.5 - 5.5 * h gb 17.6 11.5 - 16.5 * h ct 52.3 35 - 55 * m cv 900.4 75 - 100 * m ch 30.3 25 - 35 * m chc 33..6 31 - 38 * p lat 220 100 - 400 * ParthaMarisolSaida 07/24/2025 12:04: 39 PM EDT > 5.?Others? Notes: Discharge summary with available lab/diagnostic imaging results obtained and reviewed. Discharge medication list reconciled. Appropriate counseling provided. Moderate Complexity?? * Procedure Codes: 9 9495 TRANS CARE MGMT 14 DAY DISCH, 1111F DSCHR MED/CURENT MED MERGE, 38802 CAPILLARY BLOOD DRAW, 95424 CBC WITH AUTO DIFF, 1036F TOBACCO NON-USER, 3075F SYST BP GE 130 - 139MM HG, 3079F DIAST BP 80-89 MM HG * Follow Up: 3 Months fasting * Images: Billing Information: * Visit Code: 08277 Office Visit, Est Pt., Level 4. * Procedure Codes: 85729 TRANS CARE MGMT 14 DAY DISCH. 1111F DSCHR MED/CURENT MED MERGE. 00793 CAPILLARY BLOOD DRAW. 93024 CBC WITH AUTO DIFF. 1036F TOBACCO NON-USER. 3075F SYST BP GE 130 - 139MM HG. 3079F DIAST BP 80-89 MM HG. * Electronic signature of Ysabel Brito MD on 09/12/2025 at 07:34 AM EST Sign off status: Pending * Provider: Paige Brito M.D. Date: 0 07/24/2025 Generated for Ana mcghee/Alyson/Beth on: 1 11/12/2024 07:34 AM EST History and Physical Notes * HPI (History of Present Illness) Category Sub-Category Detail Notes Category Not es HPI [facility] Discharge from the following Facility: [facility] following admission for Vertigo, Discharge date: 07/21/2025 ,Date of phone contact following discharge: 07/22/2025. Pt states he is feeling better.
--- OUTSIDE RECORDS SUMMARY | 2025-07-28 05:45 | XMS_ITS ---
Author Organization [facility] Address [address] [facility] [address] [facility] [address] [place], [place] [phone] Care Team Providers Care Software Applications Architect Name Role Phone Blayne Brito Primary Care Provider [phone] REASON FOR VISIT F/U [facility] Encounters Encounter Location Date Provider Diagnosis [facility] [address] [facility] 36 [facility] [address] [place] [phone] 07/28/2025 Blayne Brito Plan Of Treatment Next Appt Details Provider Name:Blayne Zaragoza ry, 11/13/2025 09:15:00 AM, [address] [facility] 36 [facility], [address], [place], [place], [phone], Progress Notes * Brian SWANSONDOB:1975 (50 yo M)Acc No.[id number]:07/28/2025 Progress Notes Patient: Brian GE Provider: Paige Brito M.D. :1975 A ge:50 Y S ex:Male Date:07/28/2025 Address:[address] [place], [place] [phone] Subjective: * Chief Complaints: * 1 . F/U [facility]. * Medical History: Objective: * Vitals: Assessment: Plan: * Treatment: * Images: Billing Information: * Visit Code: * Procedure Codes: * Electronic signature of Ysabel Brito MD on 09/12/2025 at 07:35 AM EST Sign off status: Pending * Provider: Paige Brito M.D. Date: 0 07/28/2025 Generated for Ana mcghee/Alyson/Beth on: 1 11/12/2024 07:35 AM EST
--- OUTSIDE RECORDS SUMMARY | 2025-09-12 07:35 | XMS_ITS | Encounter Summary ---
[facility] Address [address] [place] [address] Care Team Providers Care Medical Tech Name Role Phone Provider, No Known Primary Care Provider Unavail able Encounter Details Date Type Department Care Team (Latest Contact Info) Description 07/20/2025 Travel Social History Tobacco Use Types Packs/Day Years Used Date Smoking Tobacco: Never Passive Smoke Exposure: Never Smokeless Tobacco: Never Alcohol Use Standard Drinks/Week Comments Never 0 [...] on file documented as of this encounter Functional Status * Question Answer Date of Assessment Author 1. Wish to be (Past 1 Month) No 025 1:11 AM Lay Zelaya RN 2. Non-Specific Active Suici erwin Thoughts (Past 1 Month) No 07/20/2025 1:11 AM Alba Zelaya RN * Calculated C-SSRS Risk Score (Lifetime/Recent) Answer Date of Assessment Author No Risk Indicated 07/20/2025 1:11 AM Lay Zelaya RN * Mcpherson Suicide Severity Rating Scale (Screener/Recent Self-Report) Question Answer Date of Assessment Author 6. Suicidal Behavior (Lifetime) No 1:11 AM Lay Zelaya RN documented as of this encounter Plan of Treatment Not on file documented as of this encounter Visit Diagnoses Not on filedocumented in this encounter Care Teams Medical Tech Relationship Specialty Start Date End Date Provider, [place] [address] PCP - General 07/19/25 documented as of this encounter
--- OUTSIDE RECORDS SUMMARY | 2025-09-12 07:35 | XMS_ITS ---
Author Organization Unknown ENCOUNTERS Encounter Performer Location Date Diagnosis Diagnosis Status Pre Admit [facility] [place] [address] [place] [address] [phone] Emergency [facility] [place] [address] [place] [address] [phone] XOTH Emergency [place] [place] [address] [place] [address] [phone] CARLA Pre Admit [place] [place] [address] [place] [phone] Emergency [facility] [place] [address] [place] [address] [phone] CARLA Pre Admit [facility] [place] [address] [place] [phone] *Note: Encounters from your own facility or health system may be excluded. Allergies, Adverse Reactions, Alerts Allergen Type Severity Identification Date Medications Name Date Quantity Days Supplied GPI Number
--- OUTSIDE RECORDS SUMMARY | 2025-09-12 07:35 | XMS_ITS | Clinical Summary ---
Author Organization [facility] Address [address] [place] [address] Phone [email or web address] Care Team Providers Care Joint Special Operations Name Role Phone Blayne Brito MD Primary Care Provider [phone] Allergies No known active allergies Medications loratadine [...] and Pertussis Immunization (1 - Tdap) 1993 Pneumococcal: 50+ Years (1 o f 1 - PCV) 2024 Zoster Immunization (1 of 2) 2024 Covid-19 Immunization (3 - season) 2025 08/20/2021, 07/26/2021 Influenza Immunization (#1) 2025 1002/2021, 08/23/2016 HIB Immunization Aged Out No longer [...] OPT OUT NO COPAY NB Care Teams Joint Special Operations Relationship Specialty Start Date End Date Blayne Brito MD [address] [facility] [address] [place] [address] PCP - General Anode Builder 07/03/20
--- OUTSIDE RECORDS SUMMARY | 2025-09-12 07:36 | XMS_ITS | Clinical Summary ---
[facility] Organization [facility] Address [address] [place] [address] Care Team Providers Care Flat Surfacer Jewel Name Role Phone Provider, No Known Primary Care Provider Unavail able Allergies No known active allergies Medications loratadine (Claritin) 10 MG tablet Take 1 tablet by mouth Daily. Active meclizine (ANTIVERT) 25 MG tablet Take 1 tablet by mouth 3 (Three) Times a Day As Needed for Dizziness. 21 tablet 07/21/2025 11:56 AM EDT 07/21/2025 Active PHARMACY MEDS TO BED CONSULT Use Daily. 07/21/2025 Active Active Problems Problem Noted Date Diagnosed Date Hyperlipidemia 07/21/2025 Pre-diabetes 07/21/2025 BPPV (benign paroxysmal positional vertigo) 07/07 Encounters Date Type Department Care Team Description 07/20/2025 12:22 AM EDT - 07/21/2025 2:21 PM EDT Hospital Encounter [facility] [address] [facility] [place] [address] Jurgen Beatty III, Kelly Alfred MD Benign paroxysmal positional vertigo, unspecified laterality (Primary Dx) Discharge Disposition: Home or Self Care 07/20/2025 Travel from Last 3 Months Social History Tobacco Use Types Packs/Day Years [...] Mass Index 25.38 07/20/2025 10:13 AM EDT Plan of Treatment Health Maintenance Due Date Last Done Comments ANNUAL PHYSICAL 1974 HEPATITIS C SCREENING 1974 TDAP/TD VACCINES (1 - Tdap) 1993 COLOGUARD 2019 COLON CANCER SCREENING 5 YEA R SIGMOIDOSCOPY 2019 COLONOSCOPY [address] CANCER SCREENING 2019 CT COLONOGRAPHY 2019 FECAL OCCULT BLOOD TEST 2019 FIT Testing (1 year) 2019 Pneumococcal Vaccine 50+ (1 of 1 - PCV) 2024 ZOSTER VACCINE (1 of 2) 2024 INFLUENZA VACCINE 06/06/2025 08/09/2021, 08/23/2016 LIPID PANEL 07/20/2026 07/20/2025 Procedures Procedure Name Priority Date/Time Associated Diagnosis Comments CBC AND DIFFERENTIAL Urgent 07/21/2025 9:50 AM EDT CBC WITH AUTO DIFFERENTIAL Urgent 07/21/2025 9:50 AM EDT SCANNED - TELEMETRY 07/21/2025 9 :26 AM EDT POCT GLUCOSE FINGERSTICK Routine 07/20/2025 11:41 AM EDT HIGH SENSITIVITIY TROPONIN T 1HR Timed 07/20/2025 11:19 AM EDT ECHO COMPLETE W/ DOPPLER AND COLOR FLOW Routine 07/20/2025 10:13 AM EDT TROPONIN STAT 07/20/2025 7:52 AM EDT MAGNESIUM STAT 07/20/2025 7:52 AM EDT CBC WITH AUTO DIFFERENTIAL STAT 07/20/2025 7:52 AM EDT COMPREHENSIVE METABOLIC PANEL STAT 07/20/2025 7:52 AM EDT LIPID PANEL Urgent 07/20/2025 7:52 AM EDT HEMOGLOBIN A1C Urgent 07/20/2025 7:52 AM EDT POCT GLUCOSE FINGERSTICK Routine 07/20/2025 6:44 AM EDT ECG 12-LEAD STAT 07/20/2025 4:21 AM EDT MRI BRAIN WO CONTRAST Routine 07/20/2025 2:16 AM EDT POCT GLUCOSE FINGERSTICK Routine 07/20/2025 1:01 AM EDT SCANNED - IMAGING 07/20/2025 SCANNED - IMAGING 07/20/2025 SCANNED - IMAGING 07/20/2025 CT OUTSIDE HEAD Routine 07/19/2025 12:[address] OUTSIDE HEAD Routine 07/19/2025 12:[address] OUTSIDE NECK Routine 07/19/2025 12:00 AM EDT from Last 3 Months Results * (ABNORMAL) CBC Auto Differential (07/21/2025 9:50 AM EDT) Only the most recent of2 resultswithin the time period is included. WBC 11.33(H) 3.40 - 10.80 10*3/mm3 07/21/2025 10:46 AM EDT [facility] RBC 4.93 4.14 - 5.80 10*6/mm3 07/21/2025 10:46 AM EDT [facility] Hemoglobin 15.0 13.0 - 17.7 g/dL 07/21/2025 10:46 AM EDT [facility] Hematocrit 46.7 37.5 - 51.0 % 07/21/2025 10:46 AM EDT [facility] MCV 94.7 79.0 - 97.0 fL 07/21/2025 10:46 AM EDT [facility] MCH 30.4 26.6 - 33.0 pg 07/21/2025 10:46 AM EDT [facility] MCHC 32.1 31.5 - 35.7 g/dL 07/21/2025 10:46 AM EDT [facility] RDW 13.3 12.3 - 15.4 % 07/21/2025 10:46 AM EDT [facility] RDW-SD 46.9 37.0 - 54.0 fl 07/21/2025 10:46 AM EDT [facility] MPV 9.6 6.0 - 12.0 fL 07/21/2025 10:46 AM EDT [facility] Platelets 305 140 - 450 10*3/mm3 07/21/2025 10:46 AM [facility] Neutrophil % 73.3 42.7 - 76.0 % 07/21/2025 10:46 AM [facility] Lymphocyte % 19.0(L) 19.6 - 45.3 % 07/21/2025 10:46 AM [facility] Monocyte % 5.8 5.0 - 12.0 % 07/21/2025 10:46 AM [facility] Eosinophil % 1.1 0.3 - 6.2 % 07/21/2025 10:46 AM [facility] Basophil % 0.4 0.0 - 1.5 % 07/21/2025 10:46 AM [facility] Immature Grans % 0.4 0.0 - 0.5 % 07/21/2025 10:46 AM [facility] Neutrophils, Absolute 8.31(H) 1.70 - 7.00 10*3/mm3 07/21/2025 10:46 AM [facility] Lymphocytes, Absolute 2.15 0.70 - 3.10 10*3/mm3 07/21/2025 10:46 AM [facility] Monocytes, Absolute 0.66 0.10 - 0.90 10*3/mm3 07/21/2025 10:46 AM [facility] Eosinophils, Absolute 0.13 0.00 - 0.40 10*3/mm3 07/21/2025 10:46 AM [facility] Basophils, Absolute 0.04 0.00 - 0.20 10*3/mm3 07/21/2025 10:46 AM [facility] Immature Grans, Absolute 0.04 0.00 - 0.05 10*3/mm3 07/21/2025 10:46 AM [facility] nRBC 0.0 0.0 - 0.2 /100 WBC 07/21/2025 10:46 AM [facility] Blood Venipuncture / Unknown 07/21/2025 9:50 AM EDT 07/21/2025 10:39 AM EDT us Kelly Watkins MD LAB BLOOD ORDERABLES Final Resul t Performing Organization Address City/[facility]/ZIP Co de Phone Number [facility]
[address] [place] [address], * Telemetry Scan (07/21/2025 9:26 AM EDT) [facility] New Onbase ECG ORDERABLES Final Result * POC Glucose Once (07/20/2025 11:41 AM EDT) Only the most recent of3 resultswithin the time period is included. Glucose 117 70 - 130 mg/dL 07/20/2025 11:45 AM EDT [facility] Comment:Serial Number: [id number] Blood 07/20/2025 11:4 1 AM EDT 07/20/2025 11:45 AM EDT Kelly Watkins MD POINT OF CARE TEST ORDERABLES Fi nal Result Performing Organization Address [facility] Co de Phone Number [facility]
[address] [place] [address], * High Sensitivity Troponin T 1Hr (07/20/2025 11:19 AM EDT) HS Troponin T 8 <22 ng/L 07/20/2025 12:29 PM EDT [facility] Troponin T Numeric Delta 1 Abnormal if >/=3 ng/L 07/20/2025 12:29 PM EDT [facility] Blood Venipuncture / Unknown 07/20/2025 11:19 AM EDT 07/20/2025 12:04 PM EDT Narrative [facility] - 07/20/2025 12:29 PM EDT High [...] DO LAB BLOOD ORDERAB LES Final Result [facility]
[address] [place] [id number], * ECHO COMPLETE W/ DOPPLER AND COLOR [...] 7 <22 ng/L 07/20/2025 9:06 AM EDT [facility] Blood Venipuncture / Unknown 07/20/2025 7:52 AM EDT 07/20/2025 8:31 AM EDT [facility] - 07/20/2025 9:06 AM EDT High [...] ORDERAB LES Final Result Performing Organization Address City/State/[facility] Co de Phone Number [facility]
[address] [place] [address], * Magnesium (07/20/2025 7:52 AM EDT) Magnesium 2.1 1.6 - 2.6 mg/dL 07/20/2025 9:06 AM EDT [facility] Blood Venipuncture / Unknown 07/20/2025 7:52 AM EDT 07/20/2025 8:31 AM EDT Jurgen Beatty III, DO LAB BLOOD ORDERAB LES Final Result Performing Organization Address [facility] Co de Phone Number [facility]
[address] [place] [address], * (ABNORMAL) Hemoglobin A1c (07/20/2025 7:52 AM EDT) Hemoglobin A1C 5.82(H) 4.80 - 5.60 % 07/20/2025 10:22 AM EDT [facility] Blood Venipuncture / Unknown 07/20/2025 7:52 AM EDT 07/20/2025 8:31 AM EDT Narrative [facility] - 07/20/2025 10:22 AM EDT Hemoglobin A1C Ranges: Increased Risk for Diabetes 5.7% to 6.4% Diabetes >= 6.5% Diabetic Goal < 7.0% Maverick Christensen APRN LAB BLOOD ORDERABLES Final Re sult Performing Organization Address City/[facility] Co de Phone Number [facility]
[address] [place] [address], * (ABNORMAL) Lipid Panel (07/20/2025 7:52 AM EDT) Total Cholesterol 187 0 - 200 mg/dL 07/20/2025 9:06 AM EDT [facility] Triglycerides 54 0 - 150 mg/dL 07/20/2025 9:06 AM EDT [facility] HDL Cholesterol 40 40 - 60 mg/dL 07/20/2025 9:06 AM EDT [facility] LDL Cholesterol 137(H) 0 - 100 mg/dL 07/20/2025 9:06 AM EDT [facility] VLDL Cholesterol 10 5 - 40 mg/dL 07/20/2025 9:06 AM EDT [facility] LDL/HDL Ratio 3.41 07/20/2025 9:06 AM EDT [facility] Blood Venipuncture / Unknown 07/20/2025 7:52 AM EDT 07/20/2025 8:31 AM EDT [facility] - 07/20/2025 9:06 AM EDT Cholesterol [...] is calculated using the NIH LDL-C calculation. us Maverick Christensen APRN LAB BLOOD ORDERABLES Final Re sult [facility]
[address] [place] [address], * Comprehensive Metabolic Panel (07/20/2025 7:52 AM EDT) [facility] Glucose 96 65 - 99 mg/dL 07/20/2025 9:06 AM [facility] BUN 13.4 6.0 - 20.0 mg/dL 07/20/2025 9:06 AM [facility] Creatinine 0.85 0.76 - 1.27 mg/dL 07/20/2025 9:06 AM [facility] Sodium 142 136 - 145 mmol/L 07/20/2025 9:06 AM [facility] Potassium 3.8 3.5 - 5.2 mmol/L 07/20/2025 9:06 AM [facility] Chloride 107 98 - 107 mmol/L 07/20/2025 9:06 AM [facility] CO2 24.0 22.0 - 29.0 mmol/L 07/20/2025 9:06 AM [facility] Calcium 8.9 8.6 - 10.5 mg/dL 07/20/2025 9:06 AM [facility] Total Protein 6.8 6.0 - 8.5 g/dL 07/20/2025 9:06 AM [facility] Albumin 4.0 3.5 - 5.2 g/dL 07/20/2025 9:06 AM [facility] ALT (SGPT) 11 1 - 41 U/L 07/20/2025 9:06 AM [facility] AST (SGOT) 13 1 - 40 U/L 07/20/2025 9:06 AM [facility] Alkaline Phosphatase 73 39 - 117 U/L 07/20/2025 9:06 AM [facility] Total Bilirubin 0.5 0.0 - 1.2 mg/dL 07/20/2025 9:06 AM [facility] Globulin 2.8 gm/dL 07/20/2025 9:06 AM [facility] Comment:Calculated Result A/G Ratio 1.4 g/dL 07/20/2025 9:06 AM [facility] BUN/Creatinine Ratio 15.8 7.0 - 25.0 07/20/2025 9:06 AM EDT [facility] Anion Gap 11.0 5.0 - 15.0 mmol/L 07/20/2025 9:06 AM EDT [facility] eGFR 105.2 >60.0 mL/min/1.7 3 07/20/2025 9:06 AM EDT [facility] Blood Venipuncture / Unknown 07/20/2025 7:52 AM EDT 07/20/2025 8:31 AM EDT Narrative [facility] - 07/20/2025 9:06 AM EDT GFR Categories in Chronic Kidney Disease (CKD) [...] DO LAB BLOOD ORDERAB LES Final Result [facility]
[address] [place] [address], * ECG 12 Lead Stroke Evaluation (07/20/2025 4:21 AM EDT) QT Interval 408 ms ECG QTC Interval 420 ms ECG 07/20/2025 4:21 AM EDT 07/21/2025 1:05 PM EDT Narrative ECG - 07/21/2025 1:05 PM EDT Test [...] PM Referred By: Confirmed By: Humza Kaufman us Jurgen Beatty III, DO ECG ORDERABLES F inal Result ECG * MRI Brain Without Contrast (07/20/2025 2:16 AM EDT) Anatomical Region Laterality Modality Head, Neck N/A Magnetic Resonan ce 07/20/2025 6:38 AM EDT Impressions 07/20/2025 6:44 AM EDT Negative brain MRI. No evidence of acute or subacute infarct. No acute hemorrhage. Electronically Signed: Nam Davis MD 07/20/2025 6:44 AM EDT Workstation ID: [id number] Narrative 07/20/2025 6:44 AM EDT MRI BRAIN [...] MD 07/20/2025 6:44 AM EDT Workstation ID: [id number] Maverick Christensen ATV MECHANIC IMG MRI ORDERABLES Final Resu lt * IMAGING SCANNED (07/20/2025) Only the most recent of3 resultswithin the time period is included. Anatomical Region Laterality Modality Radiographic Elsie ging [facility] DIAGNOSTIC IMAGING ORDERA BLES Final Result * CT Outside Head (07/19/2025 12:10 AM EDT) Only the most recent of2 resultswithin the time period is included. Narrative SYSTEMGENERATED, DOCUMENTATION - 07/21/2025 4:26 PM EDT This procedure was auto-finalized with no dictation required. us [employer] Outside Films IMG CT ORDERABLES Final Re sult * CT Outside Neck (07/19/2025 12:00 AM EDT) Narrative SYSTEMGENERATED, DOCUMENTATION - 07/21/2025 4:18 PM EDT This procedure was auto-finalized with no dictation required. us [employer] Outside Films IMG CT ORDERABLES Final Re sult from Last 3 Months Insurance [facility] PPO Advance Directives * CPR (Attempt to Resuscitate) (Latest Code Status on File) Date Activated Date Inactivated Comments 07/20/2025 1:57 AM 07/21/2025 4:31 PM Question Answer Comments Code Status (Patient has no pulse and is not breathing): CPR (Attempt to Resuscitate) Medical Interventions (Patie nt has pulse or is breathing): Full Support Level Of Support Discussed With: Patient Care Teams Flat Surfacer Jewel Relationship Specialty Start Date End Date Provider, No Known [facility] [place] [address] PCP - General 07/19/25
--- OUTSIDE RECORDS SUMMARY | 2025-09-12 07:36 | XMS_ITS | Patient Health Record ---
Author Organization [facility] Address [address] [facility] [address] [place], [place] [id number] Care Team Providers Care Mutuel Department Manager Name Role Phone Blayne Brito Primary Care Provider [phone] Allergies No Known Allergies Results Component Value [...] - 38 plat 220 100 - 400 X ray : Foot, right Reviewed date:05/22/2025 08:59:14 AM Interpretation:No Bony Abnormality Performing Lab: Notes/Report: No Bony Abnormality P-PSA Reviewed date:05/22/2025 08:59:14 AM Interpretation:Normal Performing Lab: Notes/Report: CLIA: [id number] Stephen Cerna MD, Upholstery Estimator [address] [place] [address] , [address], [place] [address] Test performed by [employer] PSA 0.93 <4.00 ng/mL Please note this [...] 3.6 Performing Lab: Notes/Report: Test performed by [employer] [address] [place] [address] , [address] , [place] [address] Stephen Cerna MD, Upholstery Estimator CLIA: [id number] Cholesterol 204 <200 mg/dL Triglycerides 104 <150 [...] 100 Performing Lab: Notes/Report: Test performed by [employer] , [address], [place] [address] Stephen Cerna MD, Upholstery Estimator CLIA: [id number] Sodium 141 135-145 mmol/L Potassium 4.9 3.5-5.3 [...] of right heel ( M79.671) Referral Organization [facility] Referring Provider First Name Blayne Referring Provider Last Name Alisha Referring Provider Speciality [facility] Referred Provider Jacki Melgar Referred Provider Specialty Podiatry General Notes Yvonne Preston 2024 12:33:26 PM > faxed to [facility] PodiatryKary Brynn 05/28/2025 10:13:08 AM > [...] Status W/U Status Risk Notes Problem Leukocytosis (776373383) Leukocytosis, unspecified (D72.829) Active confirmed Problem Absent kidney (067528795) 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 confirmed Vital Signs Heart Rate 76 /min 07/24/2025 Blood pressure diastolic 80 mm Hg 07/24/2025 Height 76 in 07/24/2025 Blood pressure systolic 132 mm Hg 07/24/2025 Weight 205.6 lbs 07/24/2025 BMI 25.02 kg/m2 07/24/2025 Encounters Encounter Location Date Provider [facility] [address] [place] [id number] 05/21/2025 Blayne Flaxton Pain of right heel M79.671 ; Screening, lipid Z13.220 ; Well adult exam Z00.00 ; Prostate cancer screening Z12.5 ; Colon cancer screening Z12.11 ; H/O kidney donation Z90.5 and BMI 25.0-25.9,adult Z68.25 [facility] [address] [place] [id number] 07/24/2025 Blayne Flaxton Vertigo R42 ; Snorin g R06.83 ; Witnessed apneic spells R06.81 ; Leukocytosis, unspecified D72.829 and BMI 25.0-25.9,adult Z68.25 [facility] [address] [place] [id number] 05/22/2025 Blayne Flaxton Pain in right foot M79.671 [facility] [address] [place] [id number] 07/21/2025 Blayne Flaxton Assessments Encounter Date Diagnosis (ICD Code) Assessment Notes Treatment Notes Treatment Clinical Notes Section Notes 05/21/2025 Screening, lipid (ICD-10 - Z13.220) 05/21/2025 Pain of right heel (ICD-10 - M79.671) 05/22/2025 Pain in right foot (ICD-10 - M79.671) 07/24/2025 Vertigo (ICD-10 - R42) 07/24/2025 Snoring (ICD-10 - R06.83) 05/21/2025 Well adult exam (ICD-10 - Z00.00) 07/24/2025 Witnessed apneic spells (ICD-10 - R06.81) 07/24/2025 Leukocytosis, unspecified (ICD-10 - D72.829) 05/21/2025 Prostate cancer screening (ICD-10 - Z12.5) 05/21/2025 Colon cancer screening (ICD-10 - Z12.11) 07/24/2025 BMI 25.0-25.9,adult (ICD-10 - Z68.25) 05/21/2025 H/O kidney donation (ICD-10 - Z90.5) 05/21/2025 BMI 25.0-25.9,adult (ICD-10 - Z68.25) 07/24/2025 Other Discharge summary with available lab/diagnostic imaging results obtained and reviewed. Discharge medication list reconciled. Appropriate counseling provided. Moderate Complexity Plan Of Treatment Pending Test Test Name Order Date colonoscopy 05/21/2025 sleep study 07/24/2025 Next Appt Details Provider Name:Blayne Zaragoza ry, 11/13/2025 09:15:00 AM, [address], [address], [place], [place], [id number], Insurance Providers Payer Name Payer Address Payer Phone Subscriber Number Group Number Insured Name Patient Relationship to Insured Coverage Start Date Coverage End Date [facility] [employer] [address] [place] [address] [id number] Herrera Self - patient is the insured Medical (General) History Medical History History ICD Code Allergic Rhinitis Surgical History Surgery Date(Month/Year) broke 5th digit on left hand, surgery re pair 2003 Tonsillectomy 3rd grade Left Kidney Donation to [facility] 04/15/2013 Hospitalization History Reason Date(Month/Year) [facility] due to Kidney d onation- 4 nights 04/2013
== END ==
LOC: SL 07:33
PROVIDERS: PCP Family Medicine; Visit Provider Family Medicine
DX: G47.33 Obstructive sleep apnea (adult) (pediatric) (principal)
CPT/HCPCS: G0399